=== PATIENT | male | born 1955 | race Caucasian/White ===

== ENCOUNTER 2016-10-02 04:19 | Inpatient (IN) | payer OTHER ==
[2016-10-02] VITALS (22 sets, daily range): BP systolic 133–233; BP diastolic 61–117; PULSE 88–107; RESP 11–30; TEMP 97.5–99.5; O2SAT 88–98
[~2016-10-02] VITALS: Ht 175.3 cm; Wt 104.9 kg
[~2016-10-02 04:19] MED LIST: Z.0.NO CURRENT MEDS
[2016-10-02] MEDS ORDERED: ASPI81CH CHEW (04:39)
[2016-10-02] MEDS ORDERED: HYDROmorphone HCL PF 1 MG/ML VIAL IV PUSH ONE ×3 (05:00→07:00)
[2016-10-02] MEDS ORDERED: ONDANSETRON HCL 4 MG/2 ML VIAL IV PUSH ONE (05:00)
[2016-10-02] MEDS ORDERED: SODIUM CHLORIDE 0.9% FLUSH 5 ML FLUSH IVF PRN ×2 (05:00→06:45)
[2016-10-02] MEDS: SODIUM CHLOR 0.9% 1000 ML INJ 1,000 ML IV SCH ×4 (05:02→20:19)
[2016-10-02 05:07] LABS: AUTOMATED NEUTROPHIL # 8.5 TH/MM3 (1.8-7.7); BASOPHIL # 0.4 TH/MM3 (0-0.2); BASOPHIL % 3.2 % (0.0-2.0); EOSINOPHIL # 0.1 TH/MM3 (0-0.4); EOSINOPHIL % 0.5 % (0.0-4.0); HEMATOCRIT 45.7 % (39.0-51.0); HEMO FLAGS DIFF FINAL; LYMPH % 12.9 % (9.0-44.0); LYMPHOCYTE # 1.4 TH/MM3 (1.0-4.8); MEAN CORPUSCULAR HEMOGLOBIN 27.2 PG (27.0-34.0); MEAN CORPUSCULAR HGB CONC 34.1 % (32.0-36.0); MONO % 5.9 % (0.0-8.0); NEUT % 77.5 % (16.0-70.0); PLATELET COUNT 242 TH/MM3 (150-450); RED BLOOD COUNT 5.71 MIL/MM3 (4.50-5.90); RED CELL DISTRIBUTION WIDTH 14.2 % (11.6-17.2); WHITE BLOOD COUNT 11.1 TH/MM3 (4.0-11.0)
[2016-10-02 05:19] LABS: CHLORIDE 99 MEQ/L (98-107); POTASSIUM 4.4 MEQ/L (3.5-5.1); SODIUM (NA) 133 MEQ/L (136-145)
[2016-10-02 05:23] LABS: ANION GAP 9 MEQ/L (5-15); APTT (PATIENT) 28.6 SEC (24.3-30.1); BICARBONATE 25.4 MEQ/L (21.0-32.0); BLOOD UREA NITROGEN 20 MG/DL (7-18); PROTHROMBIN TIME - PATIENT 10.6 SEC (9.8-11.6)
[2016-10-02 05:26] LABS: ALT (GPT) 20 U/L (12-78); AST (GOT) 12 U/L (15-37); GLOMERULAR FILTRATION RATE 32 ML/MIN (>89)
[2016-10-02 05:27] LABS: TOTAL BILIRUBIN ADULT 0.7 MG/DL (0.2-1.0)
[2016-10-02 05:28] LABS: ALKALINE PHOSPHATASE 60 U/L (45-117)
--- NOTE | 2016-10-02 05:39 | RADHPO ---
EXAM DATE/TIME: 10/02/2016 05:16 [facility] COMPARISON: No previous studies available for comparison. INDICATIONS : Shortness of breath. MEDICAL HISTORY : Arthritis. Carcinoma, bladder. SURGICAL HISTORY : Prostatectomy. Bilateral nephrostomy tubes ENCOUNTER: Initial ACUITY: 1 day PAIN SCORE: 9/10 LOCATION: Bilateral chest FINDINGS: A single view of the chest demonstrates the lungs to be symmetrically aerated without evidence of mas s, infiltrate or effusion. The cardiomediastinal contours are unremarkable. Osseous structures are intact. CONCLUSION: Normal examination. Colby Green MD on October 02, 2016 at 5:38 Board Certified Radiologist. This report was verified electronically.
--- NOTE | 2016-10-02 05:47 | PD ---
HPI Chief Complaint: Abdominal Pain Time Seen by Provider: 04:55 Travel History International Travel<30 days: No Contact w/Intl Traveler<30days: No Traveled to known affect area: No History of Present Illness HPI 61-year-old male presents to the emergency department by private transportation for evaluation of severe abdominal pain since late Monday night early Monday morning. Pain has been persistent and worsening. Patient reports now he is unable to lay down because of the pain being so severe. Patient denies any chest pain or shortness of breath. Patient has had no fever or chills. Pain has causing him to have associated nausea without vomiting. Patient has been able to urinate. Patient's last bowel movement was 11 AM on Monday morning. Patient's had poor oral intake. Patient denies hematemesis coffee-ground emesis melena hematochezia. Patient's past medical history significant for bladder wall malignancy he is status post radical cystoprostatectomy with ileal conduit formation in 2005. Patient is no longer undergoing any cancer-related treatment. Patient also has history of COPD ongoing tobaccoism hyperglycemia and hypertension. Patient rates abdominal pain 7-8/10 in intensity sitting upright and 10 over 10 in intensity with attempted to rest supine. PFSH Past Medical History Narrative Medical Bladder cancer and radical cystoprostatectomy and ileal conduit tobacco use alcohol use COPD; nursing notes reviewed Arthritis: Yes Asthma: No Blood Disorders: No Cancer: Yes (BLADDER) Cardiovascular Problems: No COPD: No Diminished Hearing: No Endocrine: No Genitourinary: Yes (BLADDER CANCER) Immune Disorder: No Kidney Stones: No Musculoskeletal: Yes Neurologic: No Psychiatric: No Reproductive: No Respiratory: Yes Renal Failure: No Sleep Apnea: No Past Surgical History Abdominal Surgery: No AICD: No Arteriovenous Shunt: No Cardiac Surgery: No Ear Surgery: No Endocrine Surgery: No Eye Surgery: No Genitourinary Surgery: Yes (BLADDER CAncer) Gynecologic Surgery: No Insulin Pump: No Joint Replacement: No Oral Surgery: No Pacemaker: No Thoracic Surgery: No Social History Alcohol Use: No Tobacco Use: Yes (1 1/2 PACKS PER DAY) Substance Use: No Allergies-Medications (Allergen,Severity, Reaction): Coded Allergies: Ativan (Verified Allergy, Severe, Confusion, 10/02/16) Reported Meds & Prescriptions Reported Meds & Active Scripts Active Reported Aspirin 81 Mg Chew 162 Mg CHEW DAILY PRN Review of Systems Except as stated in HPI: all other systems reviewed are Neg General / Constitutional: No: Fever, Chills Eyes: No: Visual changes HENT: No: Headaches Cardiovascular: No: Chest Pain or Discomfort Respiratory: No: Shortness of Breath Gastrointestinal: Positive: Nausea, Abdominal Pain, No: Vomiting, Diarrhea, Constipation, Loss of Appetite Genitourinary: No: Dysuria, Flank Pain Musculoskeletal: No: Myalgias, Arthralgias Skin: No Rash Neurologic: No: Weakness Psychiatric: Positive: Anxiety Endocrine: No: Heat Intolerance Hematologic/Lymphatic: No: Easy Bruising Physical Exam Narrative GENERAL: Well-developed well-nourished male in obvious distress without respiratory distress SKIN: Warm and dry. HEAD: Atraumatic. Normocephalic. EYES: Pupils equal and round. No scleral icterus. No injection or drainage. ENT: No nasal bleeding or discharge. Mucous membranes pink and moist. NECK: Trachea midline. No JVD. CARDIOVASCULAR: Regular rate and rhythm. RESPIRATORY: No accessory muscle use. Clear to auscultation. Breath sounds equal bilaterally. GASTROINTESTINAL: Abdomen soft, diffusely very tender to palpation LLQ>RLQ>[id number], distended. Hepatic and splenic margins not palpable due to abdominal anatomy and girth. No palpable pulsatile mass. MUSCULOSKELETAL: Extremities without clubbing, cyanosis, or edema. No obvious deformities. Radial and dorsalis pedis pulses 2++==. NEUROLOGICAL: Awake and alert. No obvious cranial nerve deficits. Motor grossly within normal limits. Five out of 5 muscle strength in the arms and legs. Normal speech. PSYCHIATRIC: Appropriate mood and affect; insight and judgment normal. Data Data Last Documented VS Vital Signs Date Time Temp Pulse Resp B/P Pulse Ox O2 Delivery O2 Flow Rate FiO2 10/02/16 06:41 97 18 178/94 95 Nasal Cannula 2 10/02/16 04:40 97.9 Orders Hydromorphone Pf Inj (Dilaudid Pf Inj) (10/02/16 05:00) Ondansetron Inj (Zofran Inj) (10/02/16 05:00) Sodium Chlor 0.9% 1000 Ml Inj (Ns 1000 M (10/02/16 05:00) Complete Blood Count With Diff (10/02/16 04:55) Comprehensive Metabolic Panel (10/02/16 04:55) Lipase (10/02/16 04:55) Lactic Acid (10/02/16 04:55) Prothrombin Time / Inr (Pt) (10/02/16 04:55) Act Partial Throm Time (Ptt) (10/02/16 04:55) Urinalysis - C+S If Indicated (10/02/16 04:55) Iv Access Insert/Monitor (10/02/16 04:55) Ecg Monitoring (10/02/16 04:55) Oximetry (10/02/16 04:55) Sodium Chloride 0.9% Flush (Ns Flush) (10/02/16 05:00) Electrocardiogram (10/02/16 04:55) Troponin I (10/02/16 04:55) Type And Screen (10/02/16 04:55) Chest, Single Ap (10/02/16 ) Ct Abd/Pel W/O Iv Contrast (10/02/16 ) Hydromorphone Pf Inj (Dilaudid Pf Inj) (10/02/16 06:00) Nitroglycerin 2% Oint (Nitroglycerin 2% (10/02/16 06:30) Admit Order (Ed Use Only) (10/02/16 ) ^ Saline Lock (10/02/16 06:43) Resp Oxygen Spencer C Titrat 1-4 L (10/02/16 ) ^ Notify Dr: Other (10/02/16 06:43) Sodium Chloride 0.9% Flush (Ns Flush) (10/02/16 09:00) Sodium Chloride 0.9% Flush (Ns Flush) (10/02/16 06:45) Piperacil-Tazo 4.5 Gm Premix (Zosyn 4.5 (10/02/16 07:00) Hydromorphone Pf Inj (Dilaudid Pf Inj) (10/02/16 07:00) Labs Laboratory Tests Test 10/02/16 04:50 White Blood Count 11.1 TH/MM3 Red Blood Count 5.71 MIL/MM3 Hemoglobin 15.6 GM/DL Hematocrit 45.7 % Mean Corpuscular Volume 80.0 FL Mean Corpuscular Hemoglobin 27.2 PG Mean Corpuscular Hemoglobin 34.1 % Concent Red Cell Distribution Width 14.2 % Platelet Count 242 TH/MM3 Mean Platelet Volume 8.9 FL Neutrophils (%) (Auto) 77.5 % Lymphocytes (%) (Auto) 12.9 % Monocytes (%) (Auto) 5.9 % Eosinophils (%) (Auto) 0.5 % Basophils (%) (Auto) 3.2 % Neutrophils # (Auto) 8.5 TH/MM3 Lymphocytes # (Auto) 1.4 TH/MM3 Monocytes # (Auto) 0.7 TH/MM3 Eosinophils # (Auto) 0.1 TH/MM3 Basophils # (Auto) 0.4 TH/MM3 CBC Comment DIFF FINAL Differential Comment Prothrombin Time 10.6 SEC Prothromb Time International 1.0 RATIO Ratio Activated Partial 28.6 SEC Thromboplast Time Sodium Level 133 MEQ/L Potassium Level 4.4 MEQ/L Chloride Level 99 MEQ/L Carbon Dioxide Level 25.4 MEQ/L Anion Gap 9 MEQ/L Blood Urea Nitrogen 20 MG/DL Creatinine 2.10 MG/DL Estimat Glomerular Filtration 32 ML/MIN Rate Random Glucose 135 MG/DL Lactic Acid Level 1.1 mmol/L Calcium Level 9.0 MG/DL Total Bilirubin 0.7 MG/DL Aspartate Amino Transf 12 U/L (AST/SGOT) Alanine Aminotransferase 20 U/L (ALT/SGPT) Alkaline Phosphatase 60 U/L Troponin I 0.02 NG/ML Total Protein 7.3 GM/DL Albumin 3.5 GM/DL Lipase 122 U/L MDM Medical Decision Making Medical Screen Exam Complete: Yes Emergency Medical Condition: Yes Medical Record Reviewed: Yes Interpretation(s) Chest x-ray: No subdiaphragmatic free air EKG sinus tachycardia rate [address] elevation or injury pattern change artifact is present at baseline CBC & BMP Diagram 10/02/16 04:50 Differential Diagnosis Abdominal pain, perforated viscus, bowel obstruction, ischemic colitis, abdominal aortic aneurysm, aortic dissection, diverticulitis, appendicitis, renal colic, UTI, sepsis Narrative Course Abdominal pain with previous abdominal surgery concerning for bowel obstruction bowel ischemia perforated viscus; chest x-ray reveals no evidence of subdiaphragmatic free air EKG is sinus tach rate 100 without acute injury pattern change; IV access obtained specimens collected and sent for resulting patient administered Dilaudid 1 mg IV and Zofran 4 mg IV. After pain medication pain has decreased from 7-8/10 in intensity to 4-5/10 in intensity patient is able to rest partially supine without increasing pain abdomen remains diffusely tender especially bilateral lower quadrants left greater than right. CT abdomen and pelvis ordered however in view of patient's renal insufficiency study will be done without oral or IV contrast. CT system with abdominal aortic aneurysm and mild paracolic gutter to moderate upper abdominal free fluid; case discussed with radiologist regarding Hounsfield units for fluid density per reading radiologist fluid appears to be consistent with simple fluid not consistent with hemorrhage fluid is low density no evidence for aneurysmal rupture retroperitoneum looks clear possible ascitic fluid no free air. Critical Care Narrative Aggregate critical care time was 40 minutes. Time to perform other separately billable procedures was not included in the critical care time. My time did not include minutes spent treating any other patients simultaneously or on activities that did not directly contribute to the patient's treatment. The services I provided to this patient were to treat and/or prevent clinically significant deterioration that could result in: Ruptured abdominal aortic aneurysm, ischemic bowel, hypovolemic shock, cardiogenic shock, I provided critical care services requiring my management, as noted below: Chart data review, documentation time, medication orders and management, vital sign assessments/reviewing monitor data, ordering and reviewing lab tests, ordering and interpreting/reviewing x-rays and diagnostic studies, care of the patient and discussion of the patient with the admitting physicians. HemaPrompt Point of Care Internal Pos. & Neg. Controls: Passed Fecal Specimen Occult Blood: Negative Sepsis Criteria SIRS Criteria (2 or more): Heart rate over 90 Physician Communication Physician Communication case discussed with Dr Tolentino; Discussed with Dr Ro; discussed with Dr Sandhu Diagnosis Primary Impression: Acute abdominal pain Additional Impressions: AAA (abdominal aortic aneurysm) HTN (hypertension) COPD (chronic obstructive pulmonary disease) Alcohol use Admitting Information Admitting Physician Requests: Admit Reyna Perdomo MD Oct 02, 2016 05:47
--- NOTE | 2016-10-02 06:09 | RADHPO ---
EXAM DATE/TIME: 10/02/2016 05:39 [facility] COMPARISON: No previous studies available for comparison. INDICATIONS : Diffuse abdominal pain with nausea. ORAL CONTRAST: No oral contrast ingested. RADIATION DOSE: 24.11 CTDIvol (mGy) MEDICAL HISTORY : Carcinoma, bladder. SURGICAL HISTORY : Prostatectomy. Neobladder. ENCOUNTER: Initial ACUITY: 1 day PAIN SCALE: 9/10 LOCATION: Abdomen. TECHNIQUE: Volumetric scanning of the abdomen and pelvis was performed. Using automated exposure control and ad justment of the mA and/or kV according to patient size, radiation dose was kept as low as reasonably achievable to obtain optimal diagnostic quality images. FINDINGS: There are 2 small cysts in the left lobe of the liver and a tiny cyst in the right lobe. There is mod erate free fluid in the upper abdomen. Spleen, pancreas, adrenal glands are unremarkable. Small exoph ytic cyst right lower pole kidney measuring 1.5 cm. Additional cortical cyst left kidney are suspecte d but incompletely evaluated without contrast. Left upper pole renal cyst measures up to 3.3 cm. Ther e is atherosclerotic calcification of the aorta and iliac vessels with dilatation of the infrarenal a bdominal aorta measuring 3.6 x 3.7 cm in transverse and AP dimension on axial image 42, and 4.9 x 4 c m in AP and transverse dimension on axial image 48. There is diastasis of the rectus abdominis muscul ature with anterior bulging of abdominal wall. There is a history of cystectomy with neobladder const ruction. No evidence for bowel obstruction.. Diverticulosis of the descending colon and transverse co melvi without evidence of diverticulitis. There is evidence of previous small bowel surgery of the dist al ileum. There is mild free fluid within the paracolic gutters bilaterally. Degenerative changes of the spine are noted. Lung bases are clear. CONCLUSION: 1. No definite evidence for bowel obstruction with postsurgical changes seen. 2. Aneurysmal dilatation of the abdominal aorta is noted up to 4.9 cm. 3. Bilateral renal cysts. 4. Moderate free fluid. 5. Diverticulosis without diverticulitis. Colby Green MD on October 02, 2016 at 6:04 Board Certified Radiologist. This report was verified electronically.
[2016-10-02] MEDS ORDERED: NITROGLYCERIN 2% OINT 1 GM PACKET TOPICAL ONE (06:30)
[2016-10-02] MEDS ORDERED: SODIUM CHLOR 0.9% 1000 ML INJ 1,000 ML IV SCH (06:42)
[2016-10-02] MEDS ORDERED: ONDANSETRON HCL 4 MG/2 ML VIAL IV PRN ×2 (06:45→10:30)
[2016-10-02] MEDS ORDERED: ACETAMINOPHEN 325 MG TAB PO PRN (06:45)
[2016-10-02] MEDS ORDERED: MISCELLANEOUS NURSING INFORMATION XX SCH ×2 (06:45→10:30)
[2016-10-02] MEDS ORDERED: CHLORHEXIDINE GLUCONATE 2 % 1 PACK (2 CLOTHS) TOP PRN ×2 (06:45→10:30)
[2016-10-02] MEDS ORDERED: MORPHINE SULFATE 4 MG/ML INJ IV PRN (06:45)
[2016-10-02] MEDS ORDERED: RESP: ALBUTEROL 2.5 MG/IPRATROPIUM 0.5 MG NEB (PRN) INH ×2 (06:45→10:30)
[2016-10-02] MEDS ORDERED: SODIUM CHLORIDE 0.9% FLUSH 5 ML FLUSH IV FLUSH PRN ×2 (06:45→10:30)
[2016-10-02] MEDS ORDERED: cefTRIAXone INJ 2,000 MG in SODIUM CHLORIDE 0.9% INJ 100 ML IV SCH (07:00)
[2016-10-02] MEDS ORDERED: PIPERACIL-TAZO 4.5 GM PREMIX 100 ML IV ONE (07:00)
[2016-10-02 08:04] LABS: BLOOD, URINE TRACE (NEG); GLUCOSE,URINE NEG (NEG); KETONE, URINE NEG (NEG); NITRITE,URINE NEG (NEG)
[2016-10-02 08:08] LABS: MAGNESIUM 1.4 MG/DL (1.5-2.5)
[2016-10-02 08:09] LABS: METHOD OF COLLECTION CATH; URINE COLOR STRAW (YELLW/STRAW)
[2016-10-02] MEDS: niCARdipine INJ 25 MG in SODIUM CHLOR 0.9% 250 ML INJ 250 ML IV SCH ×2 (08:17→10:40)
[2016-10-02 08:24] LABS: COMMENT (UR) CATH-CULT NOT IND; CULTURE IF INDICATED CATH CULTURE NOT IND; RBC, URINE 0-3 /hpf (0-3)
[2016-10-02 08:26] LABS: COMMENT2 (UR) OVAL FAT BODIES
[2016-10-02] MEDS: ARTIFICIAL TEARS OPTH SOLN 15 ML BTL EACH EYE SCH ×3 (08:32→18:00)
[2016-10-02] MEDS ORDERED: SODIUM CHLORIDE 0.9% FLUSH 5 ML FLUSH IV FLUSH SCH (09:00)
[2016-10-02] MEDS ORDERED: SODIUM CHLORIDE 0.9% FLUSH 5 ML FLUSH IVF SCH (09:00)
[2016-10-02] MEDS ORDERED: PANTOPRAZOLE SODIUM 40 MG VIAL IV SCH (09:00)
[2016-10-02] MEDS ORDERED: POTASSIUM PHOSPHATE MONOBASIC 500 MG TAB PO PRN (10:30)
[2016-10-02] MEDS ORDERED: MAGNESIUM SULFATE INJ 2 GM in SODIUM CHLORIDE 0.9% INJ 96 ML IV PRN (10:30)
[2016-10-02] MEDS ORDERED: POTASSIUM PHOSPHATE MONOBASIC 500 MG TAB PO/TUBE PRN (10:30)
[2016-10-02] MEDS ORDERED: POTASSIUM PHOSPHATE INJ 30 MMOL in SODIUM CHLOR 0.9% 250 ML INJ 250 ML IV PRN (10:30)
[2016-10-02] MEDS ORDERED: POTASSIUM CL 40 MEQ/30 ML LIQ UDC PO/TUBE PRN ×2 (10:30)
[2016-10-02] MEDS ORDERED: MAGNESIUM OXIDE 400 MG TAB PO PRN (10:30)
[2016-10-02] MEDS ORDERED: HYDROmorphone HCL PF 1 MG/ML VIAL IV ONE (10:30)
[2016-10-02] MEDS ORDERED: DEXTROSE 50% IN WATER 50 ML VIAL(D50) IV PUSH PRN (10:30)
[2016-10-02] MEDS ORDERED: POTASSIUM CHLOR 40 MEQ PREMIX 100 ML IV PRN ×2 (10:30)
[2016-10-02] MEDS ORDERED: POTASSIUM CHLOR 20 MEQ PREMIX 100 ML IV PRN ×2 (10:30)
[2016-10-02] MEDS ORDERED: MAGNESIUM SULFATE INJ 4 GM in SODIUM CHLORIDE 0.9% INJ 92 ML IV PRN (10:30)
[2016-10-02] MEDS ORDERED: SODIUM PHOSPHATE INJ 30 MMOL in SODIUM CHLOR 0.9% 250 ML INJ 240 ML IV PRN (10:30)
--- NOTE | 2016-10-02 11:24 | HHI.HP ---
HPI Service Critical Care Medicine Primary Care Physician No Primary Care Physician Admission Diagnosis acute abdominal pain; AAA; hypertension; copd Diagnosis: Chief Complaint: abdominal pain Travel History International Travel<30 Days: No Contact w/Intl Traveler <30 Da: No Traveled to Known Affected Are: No History of Present Illness This is a 61yM with h/o etoh abuse, copd, smoking who presents bc of 3 day history of worsening severe abdominal pain. describes it as vague lower abdominal pain, cannot locate one area. worse with eating. associated diarrhea which is nonbloody. no constipation, n/v. denies fevers or chills. never had this before. at [place] emergency department, he was found to have 5cm AAA on abdominal CT. also with leukocytosis of 11, cr 2.1. Also was found to be severely hypertensive in the ER requiring nicardipine infusion to control bp. critical care medicine is consulted to evaluate and manage his severe abdominal pain and hypertensive urgency. Review of Systems ROS Limitations: Poor Historian Constitutional: DENIES: Fever, Chills, Dizziness Respiratory: DENIES: Cough, Sputum production, Shortness of breath Cardiovascular: DENIES: Chest pain, Syncope, Dyspnea on Exertion, Lower Extremity Edema Gastrointestinal: COMPLAINS OF: Abdominal pain, Diarrhea, DENIES: Black stools , Bloody stools, Constipation, Nausea, Vomiting Neurologic: DENIES: Headache Past Family Social History Allergies: Coded Allergies: Ativan (Verified Allergy, Severe, Confusion, 10/02/16) Past Medical History Bladder cancer s/p resection COPD Arthritis Past Surgical History Radical cystoprostatectomy with ileal conduit. Reported Medications Aspirin 81 Mg Chew daily Active Ordered Medications See MAR Family History reviewed and found to be noncontributory to his acute illness. Social History significant etoh use: drinks a case of beer a day. recently has decided to stop drinking water and drink only beer. 1.5ppd smoker. denies other drugs. Physical Exam Vital Signs Vital Signs Date Time Temp Pulse Resp B/P Pulse Ox O2 Delivery O2 Flow Rate FiO2 10/02/16 09:35 91 Nasal Cannula 4.00 10/02/16 09:35 98.4 88 16 144/71 91 10/02/16 09:35 88 10/02/16 09:30 90 18 146/73 96 2 10/02/16 08:19 90 20 156/81 96 Nasal Cannula 2 10/02/16 07:58 18 10/02/16 07:45 94 Nasal Cannula 2.00 10/02/16 07:44 98 20 164/82 98 Nasal Cannula 2 10/02/16 07:03 97.5 90 20 183/80 95 Nasal Cannula 2 10/02/16 06:41 97 18 178/94 95 Nasal Cannula 2 10/02/16 06:27 97 188/100 95 Nasal Cannula 2 10/02/16 06:06 96 18 195/97 95 Nasal Cannula 2 10/02/16 05:58 96 191/100 93 Nasal Cannula 2 10/02/16 05:51 99 18 199/99 95 Nasal Cannula 2 10/02/16 05:05 Nasal Cannula 2 10/02/16 04:58 101 233/117 10/02/16 04:42 207/115 10/02/16 04:40 97.9 106 22 207/115 98 10/02/16 04:29 97.9 106 22 198/113 98 Physical Exam GENERAL: Middle-aged male, lying in bed, moderate distress due to pain HEENT: Pupils equal, round, reactive, conjugate. Mucous membranes are dry. NECK: Large jeronimo which limits evaluation of JVD. Trachea is midline. CHEST: Equal chest rise. Bilateral expiratory wheezes. CARDIOVASCULAR: Normal rate, regular rhythm. On nicardipine infusion. Systolic blood pressure 147 on my evaluation. No appreciable murmurs. ABDOMEN: Obese, soft, nondistended. Moderately tender to palpation over bilateral lower quadrants. No guarding or rebound. MUSCULOSKELETAL: No peripheral edema. pulses equal bilaterally and 2+ radial and dp. NEUROLOGICAL: RASS 0. Follows commands 4. No gross focal motor or sensory deficits Laboratory Laboratory Tests Test 10/02/16 10/02/16 10/02/16 04:50 07:43 07:50 White Blood Count 11.1 Red Blood Count 5.71 Hemoglobin 15.6 Hematocrit 45.7 Mean Corpuscular Volume 80.0 Mean Corpuscular Hemoglobin 27.2 Mean Corpuscular Hemoglobin 34.1 Concent Red Cell Distribution Width 14.2 Platelet Count 242 Mean Platelet Volume 8.9 Neutrophils (%) (Auto) 77.5 Lymphocytes (%) (Auto) 12.9 Monocytes (%) (Auto) 5.9 Eosinophils (%) (Auto) 0.5 Basophils (%) (Auto) 3.2 Neutrophils # (Auto) 8.5 Lymphocytes # (Auto) 1.4 Monocytes # (Auto) 0.7 Eosinophils # (Auto) 0.1 Basophils # (Auto) 0.4 CBC Comment DIFF FINAL Differential Comment Prothrombin Time 10.6 Prothromb Time International 1.0 Ratio Activated Partial 28.6 Thromboplast Time Sodium Level 133 Potassium Level 4.4 Chloride Level 99 Carbon Dioxide Level 25.4 Anion Gap 9 Blood Urea Nitrogen 20 Creatinine 2.10 Estimat Glomerular Filtration 32 Rate Random Glucose 135 Lactic Acid Level 1.1 Calcium Level 9.0 Total Bilirubin 0.7 Aspartate Amino Transf 12 (AST/SGOT) Alanine Aminotransferase 20 (ALT/SGPT) Alkaline Phosphatase 60 Troponin I 0.02 0.02 Total Protein 7.3 Albumin 3.5 Lipase 122 Blood Type O POSITIVE Antibody Screen NEGATIVE Magnesium Level 1.4 Total Creatine Kinase 117 Amylase Level 53 Urine Collection Type CATH Urine Color STRAW Urine Turbidity MOD Urine pH 6.0 Urine Specific Orange 1.010 Urine Protein 100 Urine Glucose (UA) NEG Urine Ketones NEG Urine Occult Blood TRACE Urine Nitrite NEG Urine Bilirubin NEG Urine Leukocyte Esterase NEG Urine RBC 0-3 Urine WBC 3-5 Urine Amorphous Sediment FEW Microscopic Urinalysis Comment CATH-CULT NOT IND Urine Collection Time 0750 Date/Time Procedure Status Source Growth 10/02/16 07:15 Aerobic Blood Culture Received Blood Peripheral Pending 10/02/16 07:15 Anaerobic Blood Culture Received Blood Peripheral Pending Result Diagram: 10/02/16 0450 10/02/16 0450 Imaging Last 24 hours Impressions Chest X-Ray 10/02/16 0000 Signed Impressions: Service Date/Time: Sunday, October 02, 2016 05:16 - CONCLUSION: Normal examination. Colby Green MD Abdomen/Pelvis CT 10/02/16 0000 Signed Impressions: Service Date/Time: Sunday, October 02, 2016 05:39 - CONCLUSION: 1. No definite evidence for bowel obstruction with postsurgical changes seen. 2. Aneurysmal dilatation of the abdominal aorta is noted up to 4.9 cm. 3. Bilateral renal cysts. 4. Moderate free fluid. 5. Diverticulosis without diverticulitis. Colby Green MD Assessment and Plan Assessment and Plan Assessment: 61yM h/o etoh abuse, COPD who presents with 3 days of worsening, severe abdominal pain and CT abd/pelvis demonstrating 5cm AAA. The patient has a normal lactate and no evidence of fluid collection in the retroperitoneal space. However, dissection, mesenteric ischemia, or leak could all be the cause of his pain. From a nonvascular standpoint, diverticulitis or colitis could also be a source. I have spoken with Dr. Bernard with vascular surgery, and he agrees that the work-up of this patient given the severity of his symptoms includes a CT aortogram to evaluate the abdominal vasculature. The patient has a history of CRI and his Cr is 2.1 today. I have spoken with the patient and discussed the risks, benefits, and alternatives of receiving IV contrast for this, including the risk of acute kidney injury requiring renal replacement therapy. He was initially hesitant to receive contrast, but after my counseling that if he did have an acute mesenteric ischemia, dissection, or aneurysm leak, this could be fixable and life-threatening, he agreed to receive IV contrast. For now, his hypertensive urgency and high concern for intra-abdominal pathology remain life-threatening, and he requires ICU level care for close monitoring and tight blood pressure control. Plan: 1. Severe Abdominal pain -- serial lactates -- CT Aortogram -- dilaudid 1mg iv q3h for pain -- strict NPO 2. Hypertensive Urgency -- Cardene for goal sbp < 150. If he does have aortic pathology, we will tighten these parameters. -- may require arterial line placement. will re-eval. 3. Acute on Chronic Renal failure -- iv hydration with NS @ 120cc/hr. -- daily BMP -- Patel with strict I/Os 4. Etoh Abuse -- Thiamine, MVI -- watch for withdraw 5. COPD -- wean o2 by NC for goal spo2 > 88% -- nebs q6h and q2h prn -- I.S. to bedside. dvt prophy: SCDs. holding pharmacologic DVT prophylaxis until aortic pathology is ruled out. gi prophylaxis: protonix iv. dispo: remain in the ICU. he is critically ill. This patient remains critically ill with one or more organ systems which are or may become a threat to life. I have spent in excess of 48 minutes discontinuously in the care and management of this patient. This time is exclusive of procedures, and includes, but is not limited to, evaluation of the patient, review of the medical record, discussions with family, consultants, nursing staff, or respiratory therapy, and documentation in the medical record. Code Status Full Code Discussed Condition With Dr. Bernard Radiologist front end web designer bedside Alek Childress MD Oct 02, 2016 11:24
[2016-10-02] MEDS: INSULIN NovoLIN REGULAR SUPPLEMENTAL SCALE SQ SCH ×2 (12:00→18:00)
[2016-10-02] MEDS ORDERED: MULTIVITAMIN INJ 10 ML, THIAMINE INJ 100 MG, FOLIC ACID INJ 1 MG in SODIUM CHLOR 0.45% ... IV ONE (12:00)
[2016-10-02 12:15] LABS: BICARBONATE 24.4 MEQ/L (21.0-32.0)
--- NOTE | 2016-10-02 13:26 | EKG ---
Date Performed: 10/02/2016 Time Performed: 05:30:18 PTAGE: 61 years EKG: Sinus tachycardia. Lateral ST-T changes are nonspecific Borderline ECG PREVIOUS TRACING : 10/13/2005 11.34 Compared to previous tracing, nonspecific ST/T changes are now present. DOCTOR: Elvis Blood Interpretating Date/Time 10/02/2016 13:25:58
[2016-10-02] MEDS ORDERED: IODIXANOL 320 MG/ML 10 ML VIAL (for RAD SPEC) IV ONE (15:12)
--- NOTE | 2016-10-02 15:39 | RADRPT ---
EXAM DATE/TIME: 10/02/2016 14:57 [facility] COMPARISON: No previous studies available for comparison. INDICATIONS : Evaluate for dissection. IV CONTRAST: 100 cc Visipaque (iodixanol) IV ; Cumulative dose for multiple exams. RADIATION DOSE: 12.86 CTDIvol (mGy) ; Combined studies MEDICAL HISTORY : Cardiovascular disease. Hypertension. Carcinoma, bladder. SURGICAL HISTORY : Prostatectomy. ENCOUNTER: Initial ACUITY: 1 day PAIN SCALE: 0/10 LOCATION: chest abdomen/pelvis TECHNIQUE: Volumetric scanning was performed using a multi-row detector CT scanner. The data was post processed with a variety of visualization algorithms including full volume maximum intensity projection, multi -planar sliding thin slab reformation, curved planar reformation, and surface rendering techniques. Using automated exposure control and adjustment of the mA and/or kV according to patient size, radiat ion dose was kept as low as reasonably achievable to obtain optimal diagnostic quality images. FINDINGS: LUNGS: There is bibasilar consolidation. No concerning pulmonary nodule is visualized. No pleural fluid is present. MEDIASTINUM: No abnormally enlarged lymph nodes by CT criteria. No axillary or hilar abnormalities are identified. ABDOMEN: The liver and spleen are free of focal defects. Multiple liver lesions again seen. The gallbladder an d pancreas demonstrate no abnormality. The adrenal glands are normal. Multiple low-density renal les ions. There has been interval pneumoperitoneum. Air is seen anteriorly. There are some ventral hernia s containing fat. There is diverticulosis of the transverse colon. There are postsurgical changes inv olving the distal ileum. Pneumoperitoneum. There are some mildly inflamed small bowel loops left mida bdomen. PELVIS: No evidence of free fluid or pelvic mass. No abnormally enlarged inguinal or retroperitoneal lymph no humberto are present. The bladder is unremarkable. THORACIC AORTA: The thoracic aortic root is normal with normal branching of the great vessels. There is no evidence of aneurysm or dissection. ABDOMINAL AORTA: The diffuse atherosclerotic changes. Aneurysmal dilatation measures up to 4.9 cm.. PELVIC VESSELS: The internal iliac and external iliac vessels are patent without aneurysm or stenosis. CONCLUSION: 1. Interval development of pneumoperitoneum, new finding from CT abdomen pelvis performed earlier in the day. This may be related to perforation of small bowel or possible perforated diverticulum from t he transverse colon. I suspect if likely coming from small bowel as there are some mildly inflamed sm all bowel loops in the region. 2. Abdominal aortic aneurysm measuring up to 4.9 cm. The mesenteric vessels are patent. 3. Small abdominal ascites. 4. Multiple low-density hepatic and renal lesions, indeterminate but likely benign. 5. Ascites. 6. Bibasilar consolidation. Kasi Alford MD on October 02, 2016 at 15:28 Board Certified Radiologist. This report was verified electronically.
[2016-10-02] MEDS: RESP: ALBUTEROL 2.5 MG/IPRATROPIUM 0.5 MG NEB (SCH) INH ×2 (16:32→21:13)
[2016-10-02] MEDS ORDERED: CARVEDILOL 6.25 MG TAB PO SCH (16:49)
[2016-10-02] MEDS: HYDROmorphone HCL PF 1 MG/ML VIAL IV PRN (16:59)
[2016-10-02] MEDS ORDERED: LABETALOL HCL 100 MG/20 ML VIAL IV PUSH PRN (17:00)
[2016-10-02] MEDS: PIPERACIL-TAZO 2.25 GM PREMIX 50 ML IV SCH (17:00)
[2016-10-02] MEDS: CARVEDILOL 6.25 MG TAB PO SCH (18:00)
--- NOTE | 2016-10-02 18:47 | MB ---
cc: GENE MORALES DATE OF CONSULTATION: 10/02/2016. REASON FOR CONSULTATION: Possible free air in abdomen. HISTORY OF PRESENT ILLNESS: This is 61-year-old gentleman who had a 3-day history of just a diffuse abdominal pain. He cannot really locate where it is originally when he came into the hospital. When I examined him, he seemed to be complaining more of right upper quadrant pain than anything else. He has been the intensive care unit and it was originally thought he might have an abdominal aortic aneurysm that would need a surgical repair. Surgery was consulted after a CTA revealed some free air that was originally not called on the previous CT scan done earlier in the day. Dr. Dowd has consulted me for surgical opinion of his abdominal exam and radiologic findings. PAST MEDICAL HISTORY: He is not very verbose about his medical history. Most of the history is obtained from the records but he is able to fill me in on some. 1. He has COPD. 2. He has a known abdominal aortic aneurysm. 3. He had bladder cancer requiring a cystectomy with an ileal conduit done by Dr. Adorno years ago and apparently was complicated with wound dehiscence that was repaired and he has an incisional hernia that he has known about for years. 4. Hypertension. 5. COPD. ALLERGIES: 1. ATIVAN. OUTPATIENT MEDICATIONS: 1. Aspirin. INPATIENT MEDICATIONS: He is on the standard intensive care unit medicines now. PHYSICAL EXAMINATION: GENERAL: On physical exam, he is a full-bearded gentleman pleasant, alert, and appears fairly comfortable in the intensive care unit. NECK: The neck is supple. CHEST: Clear. HEART: Regular rate. ABDOMEN: Obese and soft with an incisional hernia. He has no rebound or guarding specifically over around the hernia where they called the suspected free air he does has tenderness of the right upper quadrant over the gallbladder. He has surgical scars. EXTREMITIES: Moves all extremities well, no clubbing, cyanosis or edema. : He has a Patel catheter in place draining a fair amount of clear yellow urine. LABORATORY DATA: He has a white count of 11, hemoglobin of 15 and hematocrit of 45. Chemistry showed a creatinine of 1.8, which is down from 2.1 earlier today. His magnesium is 1.4. His lactic acid was 1.1. Amylase and lipase are normal. RADIOLOGIC IMAGING: Reviewed the CTA and the abdominal CT and there is questionable free air around and in this hernia. On my interpretation, he has some thickening of his gallbladder wall. ASSESSMENT: This is a 61-year-old gentleman who came into the hospital with abdominal discomfort. He has a nonoperative 4.9 to 5.0 cm abdominal aortic aneurysm. He has findings of right upper quadrant pain and has this questionable free air in the abdomen that he apparently is asymptomatic from. At this point, I reviewed the case with Dr. Dowd. At this time, will just sit tight with him clinically. He does not appear to have acute abdomen. In fact, he is better than he was when he first came in. I will watch him during this hospitalization. I have taken the liberty of ordering an ultrasound to look at his gallbladder as well. Gene Morales MD JDB/CONOR /5:23 PM /6:37 PM
--- NOTE | 2016-10-02 19:15 | MB ---
cc: JAYCEE ADHIKARI MD DATE OF CONSULTATION: 10/02/2016. REASON FOR CONSULTATION: Abdominal aortic aneurysm, abdominal pain. CRITICAL CARE TIME: Forty (40) minutes. HISTORY OF PRESENT ILLNESS: This 61-year-old male presented yesterday to the [facility] Emergency Room with worsening abdominal pain. The patient states he had pain like this for about five days, had diarrhea until yesterday which now stopped. He denies nausea and vomiting. The patient underwent CT scan which revealed an abdominal aortic aneurysm measuring about 5 cm in diameter and I was called to see the patient in consult considering the pain and the abdominal aortic aneurysm which was known from before. PAST MEDICAL HISTORY: 1. The patient is a very poor historian; however, he had apparently ten years ago a bladder resection for tumor with a Jose A Vesica. 2. COPD. 3. Arthritis. 4. Denies diabetes mellitus. 5. He also has hypertension. SOCIAL HISTORY: The patient smokes about 1-1/2 to 2 packs a day and drinks about a case of beer a day. PHYSICAL EXAMINATION: GENERAL: The physical examination reveals a 61-year-old male appearing much older than his actual age. HEAD, EYES, EARS, NOSE, THROAT: Normocephalic. No trauma to the head. Pupils equal and reactive. Extraocular muscles intact. NECK: The neck is supple. Bilateral carotid pulses and bilateral carotid bruits about 2/6. CHEST: Bilateral breath sounds decreased over both lung styles consistent with a moderate degree of COPD. HEART: Regular rhythm. The patient is hypertensive. Slightly tachycardic. ABDOMEN: Abdomen soft with hyperactive bowel sounds. On palpation, tender in the epigastrium but without rebound or guarding. The abdominal wall is thinned out. The patient has multiple scars over the anterior abdominal wall from previous surgery. No masses are noted. EXTREMITIES: The patient has actually palpable femoral pulses. He is modestly overweight and then distal pulses only by Doppler. The popliteal pulses are very weak and dorsalis pedis and posterior tibial are present but again are very weak in both legs. NEUROLOGIC: Neurologically grossly the patient is intact. I reviewed laboratory and diagnostic procedures on this gentleman. At this point, there are several issues to consider: The patient has an abdominal aortic aneurysm which is asymptomatic. The aneurysm reaches above the renal arteries and can be considered a juxtarenal aneurysm and therefore is not amenable to any endovascular stenting. In addition, the patient has significant disease in the iliac arteries, mainly to the left, more left than right, and then bilateral superficial femoral artery occlusions with reconstitutions distally and poor runoff to both feet. So as far as vascular surgery is concerned, the patient right now is not symptomatic distally. The aneurysm is 5 cm and not symptomatic and therefore, I would be hard pressed to do anything about this. Other than that, the patient has a small amount of air on the repeat CT scan for the CTA with runoff and I have discussed this with Dr. Morales, who has been consulted and I agree with his approach to this problem right now. It is somewhat unclear where the air came from and what is perforated, if anything anymore. Right now, there is no vascular procedure to be done. The aneurysm is not symptomatic and should be left alone at this point. I thank you very much for the referral. Jaycee PRADO/CONOR /5:40 PM /7:00 PM
[2016-10-02] MEDS: SODIUM CHLORIDE 0.9% FLUSH 5 ML FLUSH IV FLUSH SCH (20:19)
--- NOTE | 2016-10-02 21:36 | RADRPT ---
EXAM DATE/TIME: 10/02/2016 19:36 [facility] COMPARISON: No previous studies available for comparison. INDICATIONS : Right upper quadrant pain. MEDICAL HISTORY : Chronic obstructive pulmonary disease. Hypertension. Arthritis. Bladder cancer. C.diff. SURGICAL HISTORY : Bilateral nephrostomy tubes. Radical prostatectomy with ileal conduit. ENCOUNTER: Initial ACUITY: 1 day PAIN SCORE: 2/10 LOCATION: Right upper quadrant MEASUREMENTS: LIVER: 17.0 cm length COMMON DUCT: 5 mm RIGHT KIDNEY: 13.2 x 5.6 x 6.0 cm FINDINGS: LIVER: Normal echotexture without focal lesion or ductal dilatation. Several simple cysts including 2 in the left lobe measuring 14 x 14 x 10 mm and 9 x 9 x 6 mm. COMMON DUCT: No intraluminal mass or stone visualized. GALLBLADDER: Contains no stones, demonstrates wall thickening without pericholecystic fluid. There is benign adeno myomatosis. PANCREAS: The visualized portions are within normal limits. RIGHT KIDNEY: No evidence of hydronephrosis, stone, or mass. Minimally complex cyst in the mid kidney measures 19 x 17 x 10 mm. Simple cyst lower pole measures 23 x 22 x 18 mm. CONCLUSION: 1. Hepatic and right renal cyst. 2. No evidence for cholelithiasis. 3. Adenomyomatosis the gallbladder. Kasi Alford MD on October 02, 2016 at 21:32 Board Certified Radiologist. This report was verified electronically.
[2016-10-03] VITALS (12 sets, daily range): BP systolic 134–175; BP diastolic 62–94; PULSE 68–97; RESP 12–29; TEMP 98–99.1; O2SAT 94–98
[2016-10-03] MEDS: HYDROmorphone HCL PF 1 MG/ML VIAL IV PRN (01:46)
[2016-10-03] MEDS: THIAMINE INJ 100 MG in SODIUM CHLORIDE 0.9% INJ 100 ML IV SCH (02:15)
[2016-10-03] MEDS: niCARdipine INJ 25 MG in SODIUM CHLOR 0.9% 250 ML INJ 250 ML IV SCH (02:27)
[2016-10-03] MEDS: RESP: ALBUTEROL 2.5 MG/IPRATROPIUM 0.5 MG NEB (SCH) INH ×4 (04:00→20:38)
[2016-10-03] MEDS: CHLORHEXIDINE GLUCONATE 2 % 1 PACK (2 CLOTHS) TOP SCH (04:00)
[2016-10-03] MEDS ORDERED: CHLORHEXIDINE GLUCONATE 2 % 1 PACK (2 CLOTHS) TOP SCH (04:00)
[2016-10-03] MEDS: PIPERACIL-TAZO 2.25 GM PREMIX 50 ML IV SCH ×5 (04:18→22:09)
[2016-10-03] MEDS: SODIUM CHLOR 0.9% 1000 ML INJ 1,000 ML IV SCH ×3 (04:19→20:51)
[2016-10-03 04:32] LABS: AUTOMATED NEUTROPHIL # 6.6 TH/MM3 (1.8-7.7); BASOPHIL # 0.1 TH/MM3 (0-0.2); BASOPHIL % 0.6 % (0.0-2.0); EOSINOPHIL # 0.1 TH/MM3 (0-0.4); EOSINOPHIL % 0.7 % (0.0-4.0); HEMATOCRIT 39.3 % (39.0-51.0); HEMO FLAGS DIFF FINAL; LYMPH % 13.2 % (9.0-44.0); LYMPHOCYTE # 1.1 TH/MM3 (1.0-4.8); MEAN CELL VOLUME 81.7 FL (80.0-100.0); MEAN CORPUSCULAR HEMOGLOBIN 26.5 PG (27.0-34.0); MEAN CORPUSCULAR HGB CONC 32.4 % (32.0-36.0); MONO % 7.1 % (0.0-8.0); NEUT % 78.4 % (16.0-70.0); PLATELET COUNT 175 TH/MM3 (150-450); RED BLOOD COUNT 4.81 MIL/MM3 (4.50-5.90); WHITE BLOOD COUNT 8.5 TH/MM3 (4.0-11.0)
[2016-10-03 04:47] LABS: PROTHROMBIN TIME - PATIENT 10.8 SEC (9.8-11.6)
[2016-10-03 04:58] LABS: ALKALINE PHOSPHATASE 49 U/L (45-117); ALT (GPT) 14 U/L (12-78); ANION GAP 7 MEQ/L (5-15); AST (GOT) 9 U/L (15-37); BICARBONATE 26.3 MEQ/L (21.0-32.0); BLOOD UREA NITROGEN 13 MG/DL (7-18); CHLORIDE 109 MEQ/L (98-107); GLOMERULAR FILTRATION RATE 92 ML/MIN (>89); POTASSIUM 3.9 MEQ/L (3.5-5.1); SODIUM (NA) 142 MEQ/L (136-145); TOTAL BILIRUBIN ADULT 0.6 MG/DL (0.2-1.0)
[2016-10-03] MEDS: CARVEDILOL 6.25 MG TAB PO SCH ×2 (05:37→17:41)
[2016-10-03] MEDS: INSULIN NovoLIN REGULAR SUPPLEMENTAL SCALE SQ SCH ×4 (06:00→17:41)
[2016-10-03] MEDS: NICOTINE 21 MG/24 HR PATCH TD SCH ×2 (06:17→09:00)
[2016-10-03] MEDS ORDERED: PANTOPRAZOLE SODIUM 40 MG VIAL IV SCH (09:00)
[2016-10-03] MEDS: ARTIFICIAL TEARS OPTH SOLN 15 ML BTL EACH EYE SCH ×3 (09:00→17:26)
[2016-10-03] MEDS: SODIUM CHLORIDE 0.9% FLUSH 5 ML FLUSH IV FLUSH SCH ×2 (09:00→20:50)
--- NOTE | 2016-10-03 09:05 | RADRPT ---
EXAM DATE/TIME: 10/02/2016 14:57 [facility] COMPARISON: CTA THORACIC ABDOMINAL AORTA W 3D RECON, October 02, 2016, 14:57. INDICATIONS : Evaluate for dissection. IV CONTRAST: 100 cc Visipaque (iodixanol) IV ; Cumulative dose for multiple exams. RADIATION DOSE: 12.86 CTDIvol (mGy) ; Combined studies MEDICAL HISTORY : Cardiovascular disease. Hypertension. Carcinoma, bladder. SURGICAL HISTORY : None. Prostatectomy. ENCOUNTER: Initial ACUITY: 1 day PAIN SCALE: 0/10 LOCATION: lower extremity TECHNIQUE: Volumetric scanning was performed using a multi-row detector CT scanner. The data was post processed with a variety of visualization algorithms including full volume maximum intensity projection, multi -planar sliding thin slab reformation, curved planar reformation, and surface rendering techniques. Using automated exposure control and adjustment of the mA and/or kV according to patient size, radiat ion dose was kept as low as reasonably achievable to obtain optimal diagnostic quality images. FINDINGS: Thoracic aorta: The aortic root is mildly dilated at 3.9 cm. The proximal arch is mildly dilated at 3.3 cm. The aorta returns to a normal caliber at the level of the distal arch. The origins of the great vessels are wi levi patent. The descending thoracic aorta is normal in caliber throughout its course. It measures ap proximately 2.7 cm in its distal segment. There is no evidence of thoracic aortic dissection. Abdominal aorta: The celiac and SMA origins are widely patent. There are single renal arteries bilaterally. The renal arteries are widely patent. The infrarenal aorta is aneurysmal with a maximum dimension of 4.7 cm. Th e DANIELLA is patent. Pelvis: The proximal right common iliac is mildly aneurysmal at 1.7 cm. There is high-grade stenosis in its d istal segment. The left common iliac is heavily diseased with high-grade stenosis throughout its cour se. The external iliac circulation is moderately diseased bilaterally in its proximal segment. The di stal external iliac circulation is adequate in caliber bilaterally. Right leg: The right common femoral demonstrates a densely calcified atherosclerotic plaque. There is high-grade stenosis in the right common femoral. The profunda femoral is patent. The superficial femoral is occ luded at its origin. There is eventual reconstitution of the popliteal at the level of the knee. Dist ally, all 3 trifurcation vessels are patent down into the foot. Left leg: The left common femoral is diseased but adequate in caliber. The profunda femoral is patent. The supe rficial femoral occludes at its origin. There is reconstitution at the level of the mid thigh. The po pliteal is diseased but adequate in caliber. Distally, all 3 trifurcation vessels are patent down to the foot. CT source data: The visualized pulmonary parenchyma demonstrates bilateral atelectasis. The heart is normal in size. There is atherosclerotic plaque in the coronary arteries. Imaging through the upper abdomen demonstra adebayo a small amount of ascites layering around the liver and the spleen. There is a 1.4 cm low-attenua tion lesion within the liver. This is nonspecific in appearance. No retroperitoneal adenopathy is pre sent. The loops of small and large bowel are unremarkable. Note is made of a Paetl catheter within th e bladder. CONCLUSION: 1. There is no evidence of dissection of the thoracic or abdominal aorta. Measurements for the thorac ic aorta are given above. 2. 4.7 cm infrarenal abdominal aortic aneurysm. 3. Extensive vascular disease with high-grade stenosis involving both common iliac arteries. 4. Complete occlusion of the right superficial femoral with eventual reconstitution of the right popl iteal and three-vessel runoff below the knee. 5. Complete occlusion of the proximal left superficial femoral with reconstitution of its mid segment . Distally, all 3 trifurcation vessels are patent. Bart Rodriguez MD on October 03, 2016 at 8:14 Board Certified Radiologist. This report was verified electronically.
--- NOTE | 2016-10-03 09:27 | HHI.PR ---
Subjective Remarks resting comfortably with no distress. abdominal pain has much improved. no nausea or vomiting. d/w the RN and no acute issues over night. Objective Vitals Vital Signs Date Time Temp Pulse Resp B/P Pulse Ox O2 Delivery O2 Flow Rate FiO2 10/03/16 08:25 97 Nasal Cannula 4.00 10/03/16 04:00 99.1 78 12 134/62 94 10/03/16 02:16 12 10/03/16 00:00 98.5 86 14 166/74 94 10/02/16 23:00 101 10/02/16 21:14 93 Nasal Cannula 3.00 10/02/16 20:00 99.5 101 30 157/74 93 10/02/16 19:00 92 Nasal Cannula 4.00 10/02/16 18:23 98.0 95 11 133/61 88 10/02/16 18:00 107 10/02/16 12:00 98.0 89 12 138/63 90 10/02/16 11:16 93 Nasal Cannula 6.00 10/02/16 09:35 91 Nasal Cannula 4.00 10/02/16 09:35 98.4 88 16 144/71 91 10/02/16 09:35 88 10/02/16 09:30 90 18 146/73 96 2 I/O 10/02/16 10/02/16 10/02/16 10/03/16 10/03/16 10/03/16 07:00 15:00 23:00 07:00 15:00 23:00 Intake Total 1010 ml 1600 ml Output Total 1800 ml 1850 ml Balance -790 ml -250 ml Intake IV Total 1010 ml 1600 ml Output Urine Total 1800 ml 1850 ml Result Diagram: 10/03/16 0413 10/03/16 0413 Imaging Last Impressions Gall Bladder Ultrasound 10/02/16 0000 Signed Impressions: Service Date/Time: Sunday, October 02, 2016 19:36 - CONCLUSION: 1. Hepatic and right renal cyst. 2. No evidence for cholelithiasis. 3. Adenomyomatosis the gallbladder. Kasi Alford MD Chest X-Ray 10/02/16 0000 Signed Impressions: Service Date/Time: Sunday, October 02, 2016 05:16 - CONCLUSION: Normal examination. Colby Green MD Aorta w/Runoff CTA 2/26/17 0000 Draft Impressions: Service Date/Time: Sunday, October 02, 2016 14:57 - CONCLUSION: 1. There is no evidence of dissection of the thoracic or abdominal aorta. Measurements for the thoracic aorta are given above. 2. 4.7 cm infrarenal abdominal aortic aneurysm. 3. Extensive vascular disease with high-grade stenosis involving both common iliac arteries. 4. Complete occlusion of the right superficial femoral with eventual reconstitution of the right popliteal and three-vessel runoff below the knee. 5. Complete occlusion of the proximal left superficial femoral with reconstitution of its mid segment. Distally, all 3 trifurcation vessels are patent. Bart Rodriguez MD Aorta CTA 10/02/16 Signed Impressions: Service Date/Time: Sunday, October 02, 2016 14:57 - CONCLUSION: 1. Interval development of pneumoperitoneum, new finding from CT abdomen pelvis performed earlier in the day. This may be related to perforation of small bowel or possible perforated diverticulum from the transverse colon. I suspect if likely coming from small bowel as there are some mildly inflamed small bowel loops in the region. 2. Abdominal aortic aneurysm measuring up to 4.9 cm. The mesenteric vessels are patent. 3. Small abdominal ascites. 4. Multiple low-density hepatic and renal lesions, indeterminate but likely benign. 5. Ascites. 6. Bibasilar consolidation. Kasi Alford MD Abdomen/Pelvis CT 10/02/16 Signed Impressions: Service Date/Time: Sunday, October 02, 2016 05:39 - CONCLUSION: 1. No definite evidence for bowel obstruction with postsurgical changes seen. 2. Aneurysmal dilatation of the abdominal aorta is noted up to 4.9 cm. 3. Bilateral renal cysts. 4. Moderate free fluid. 5. Diverticulosis without diverticulitis. Colby Green MD Objective Remarks GENERAL: This is a well-nourished, well-developed patient, in no apparent distress. CARDIOVASCULAR: Regular rate and regular rhythm without murmurs, gallops, or rubs. RESPIRATORY: Clear to auscultation. Breath sounds equal bilaterally. No wheezes , rales, or rhonchi. GASTROINTESTINAL: Abdomen soft, non-tender, nondistended. Normal, active bowel sounds MUSCULOSKELETAL: Extremities without clubbing, cyanosis, or edema. NEURO: Alert & Oriented x4 to person, place, time, situation. Moves all ext x4 Procedures none Medications and IVs Current Medications Hydromorphone HCl (Dilaudid Pf Inj) 1 mg ONCE ONCE IV PUSH Last administered on 10/02/16 05:03; Start 10/02/16 at 05:00; Stop 10/02/16 at 05:01; Status DC Ondansetron HCl 4 mg 4 mg ONCE ONCE IV PUSH Last administered on 10/02/16 05: 03; Start 10/02/16 at 05:00; Stop 10/02/16 at 05:01; Status DC Sodium Chloride (NS 1000 ml Inj) 1,000 ml @ 100 mls/hr Q10H IV Last administered on 10/02/16 05:02; Start 10/02/16 at 05:00; Stop 10/02/16 at 10:33 ; Status DC IV Flush (NS Flush) 2 ml UNSCH PRN IVF FLUSH AFTER USING IV ACCESS Last administered on 10/02/16 05:56; Start 10/02/16 at 05:00; Stop 10/02/16 at 07:03 ; Status DC Hydromorphone HCl (Dilaudid Pf Inj) 1 mg ONCE ONCE IV PUSH Last administered on 10/02/16 05:56; Start 10/02/16 at 06:00; Stop 10/02/16 at 06:01; Status DC Nitroglycerin (Nitroglycerin 2% Oint) 2 inch ONCE ONCE TOPICAL Last administered on 10/02/16 06:21; Start 10/02/16 at 06:30; Stop 10/02/16 at 06:31 ; Status DC IV Flush (NS Flush) 2 ml BID IVF Last administered on 10/02/16 08:31; Start at 09:00; Stop 10/02/16 at 10:41; Status DC IV Flush 2 ml 2 ml UNSCH PRN IVF FLUSH AFTER USING IV ACCESS Last administered on 10/02/16 07:16; Start 10/02/16 at 06:45; Stop 10/02/16 at 10:41; Status DC Piperacillin Sod/ Tazobactam Sod (Zosyn 4.5 Gm Premix) 100 ml @ 200 mls/hr ONCE ONCE IV Last administered on 10/02/16 07:16; Start 10/02/16 at 07:00; Stop 10/02/16 at 07:29; Status DC Hydromorphone HCl 1 mg 1 mg ONCE ONCE IV PUSH Last administered on 10/02/16 07:15; Start 10/02/16 at 07:00; Stop 10/02/16 at 07:01; Status DC Nicardipine HCl 25 mg/Sodium Chloride 260 ml @ 0 mls/hr TITRATE IV Last administered on 10/03/16 02:27; Start 10/02/16 at 06:45; Stop 10/03/16 at 06:09 ; Status DC Sodium Chloride (NS 1000 ml Inj) 1,000 ml @ 84 mls/hr [id number] IV Last administered on 10/02/16 07:16; Start 10/02/16 at 06:42; Stop 10/02/16 at 10:33 ; Status DC IV Flush (NS Flush) 2 ml UNSCH PRN IV FLUSH FLUSH AFTER USING IV ACCESS; Start 10/02/16 at 06:45; Stop 10/02/16 at 07:03; Status DC IV Flush (NS Flush) 2 ml BID IV FLUSH ; Start 10/02/16 at 09:00; Stop 10/02/16 at 09:00; Status DC Acetaminophen (Tylenol) 650 mg Q6H PRN PO PAIN 1-10 AND/OR FEVER >101F; Start 10/02/16 at 06:45 Acetaminophen/ Hydrocodone Bitart ([place] 5-325 Mg) 1 tab Q4H PRN PO PAIN SCALE 1 TO 5; Start 10/02/16 at 06:45 Morphine Sulfate (Morphine Inj) 2 mg Q2H PRN IV PAIN SCALE 6 TO 10; Start 10/02 at 06:45; Stop 10/02/16 at 10:33; Status DC Pantoprazole Sodium (Protonix Inj) 40 mg DAILY IV Last administered on 08:31; Start 10/02/16 at 09:00; Stop 10/02/16 at 10:42; Status DC Artificial Tears (Tears Naturale Opth Soln) 1 drop TID EACH EYE Last administered on 10/02/16 10:01; Start 10/02/16 at 09:00 Ondansetron HCl (Zofran Inj) 4 mg Q6H PRN IV NAUSEA OR VOMITING; Start at 06:45; Stop 10/02/16 at 10:42; Status DC Albuterol/ Ipratropium (Duoneb Neb) 1 ampule Q2HR NEB PRN INH WHEEZING; Start 10/02/16 at 06:45; Stop 10/02/16 at 10:40; Status DC Miscellaneous Information 1 Q361D XX ; Start 10/02/16 at 06:45; Stop 10/02/16 at 10:41; Status DC Chlorhexidine Gluconate (Chlorhexidine 2% Cloth) 3 pack Taper DAILY@04 TOP ; Start 10/03/16 at 04:00; Stop 10/03/16 at 04:00; Status DC Chlorhexidine Gluconate 3 pack 3 pack UNSCH PRN TOP HYGIENIC CARE; Start at 06:45; Stop 10/02/16 at 10:41; Status DC Ceftriaxone Sodium/Sodium Chloride (Rocephin Inj/NS Inj) 100 ml @ 200 mls/hr Q24H IV Last administered on 10/02/16 07:43; Start 10/02/16 at 07:00; Stop at 16:52; Status DC Hydromorphone HCl (Dilaudid Pf Inj) 1 mg NOW ONCE IV Last administered on 10/02 10:39; Start 10/02/16 at 10:30; Stop 10/02/16 at 10:31; Status DC Magnesium Oxide 800 mg 800 mg UNSCH PRN PO For Magnesium 1.2 - 1.6 mg/dL; Start 10/02/16 at 10:30 Magnesium Sulfate 4 gm/Sodium Chloride 100 ml @ 50 mls/hr UNSCH PRN IV For Magnesium 0.9 - 1.1 mg/dL; Start 10/02/16 at 10:30 Magnesium Sulfate 2 gm/Sodium Chloride 100 ml @ 50 mls/hr UNSCH PRN IV For Magnesium 1.2 - 1.6 mg/dL Last administered on 10/02/16 12:42; Start 10/02/16 at 10:30 Potassium Chloride 100 ml @ 50 mls/hr Q2H PRN IV For Potassium 2.8 - 3.2 mEq/L ; Start 10/02/16 at 10:30 Potassium Chloride 100 ml @ 50 mls/hr Q2H PRN IV For Potassium 3.3 - 3.5 mEq/L ; Start 10/02/16 at 10:30 Potassium Chloride 100 ml @ 50 mls/hr Q2H PRN IV For Potassium 2.8 - 3.2 mEq/L ; Start 10/02/16 at 10:30 Potassium Chloride (KCl 40 Meq Premix Inj) 100 ml @ 25 mls/hr UNSCH PRN IV For Potassium 3.3 - 3.5 mEq/L; Start 10/02/16 at 10:30 Potassium Chloride (KCl 40 Meq/30 ml Liq) 40 meq UNSCH PRN PO/TUBE For Potassium 3.3 - 3.5 mEq/L; Start 10/02/16 at 10:30 Potassium Chloride (KCl 40 Meq/30 ml Liq) 40 meq UNSCH PRN PO/TUBE SEE LABEL COMMENTS; Start 10/02/16 at 10:30 Potassium Phosphate (K-Phos) 2,000 mg Q4H PRN PO For Phosphorus < 2.5 mg/dL; Start 10/02/16 at 10:30 Potassium Phosphate 2000 mg 2,000 mg UNSCH PRN PO/TUBE SEE LABEL COMMENTS; Start 10/02/16 at 10:30 Potassium Phosphate 30 mmol/ Sodium Chloride 260 ml @ 42 mls/hr UNSCH PRN IV SEE LABEL COMMENTS; Start 10/02/16 at 10:30 Sodium Phosphate/ Sodium Chloride (Sodium Phosphate Inj/NS 250 ml Inj) 250 ml @ 42 mls/hr UNSCH PRN IV For Phosphorus < 2.5 mg/dL; Start 10/02/16 at 10:30 Dextrose (D50w (Vial) Inj) 25 ml UNSCH PRN IV PUSH HYPOGLYCEMIA-SEE COMMENTS; Start 10/02/16 at 10:30 Insulin Human Regular (NovoLIN R SUPPLEMENTAL SCALE) 1 Q6HR SQ ; Start 10/02/16 at 12:00 Albuterol/ Ipratropium (Duoneb Neb) 1 ampule Q6HR NEB INH Last administered on 10/02/16 21:13; Start 10/02/16 at 16:00 Albuterol/ Ipratropium 1 ampule 1 ampule Q2HR NEB PRN INH WHEEZING; Start 10/02 at 10:30 Sodium Chloride (NS 1000 ml Inj) 1,000 ml @ 120 mls/hr Q8H20M IV Last administered on 10/03/16 04:19; Start 10/02/16 at 10:25 IV Flush (NS Flush) 2 ml UNSCH PRN IV FLUSH FLUSH AFTER USING IV ACCESS; Start 10/02/16 at 10:30 IV Flush (NS Flush) 2 ml BID IV FLUSH Last administered on 10/02/16 20:19; Start 10/02/16 at 21:00 Hydromorphone HCl (Dilaudid Pf Inj) 1 mg Q4H PRN IV PAIN SCALE 6 TO 10 Last administered on 10/03/16 01:46; Start 10/02/16 at 10:30 Pantoprazole Sodium (Protonix Inj) 40 mg DAILY IV ; Start 10/03/16 at 09:00 Ondansetron HCl (Zofran Inj) 4 mg Q6H PRN IV NAUSEA OR VOMITING; Start at 10:30 Miscellaneous Information 1 Q361D XX ; Start 10/02/16 at 10:30 Chlorhexidine Gluconate (Chlorhexidine 2% Cloth) 3 pack Taper DAILY@04 TOP Last administered on 10/03/16 04:00; Start 10/03/16 at 04:00; Stop 09/29/17 at 03:59 Chlorhexidine Gluconate 3 pack 3 pack UNSCH PRN TOP HYGIENIC CARE; Start at 10:30 Thiamine HCl/ Sodium Chloride (Thiamine Inj/NS Inj) 101 ml @ 101 mls/hr Q24H IV Last administered on 10/03/16 02:15; Start 10/03/16 at 02:00; Stop at 02:59 Thiamine HCl 100 mg 100 mg DAILY PO ; Start 10/06/16 at 09:00 Multivitamins/ Thiamine HCl/ Folic Acid/Sodium Chloride (Mvi-12 Inj/ Thiamine Inj/ Folvite Inj/1/2 NS 500 ml Inj) 511.2 ml @ 125 mls/hr ONCE ONCE IV Last administered on 10/02/16 12:42; Start 10/02/16 at 12:00; Stop 10/02/16 at 16:05 ; Status DC Multivitamins (Theragran) 1 tab DAILY PO ; Start 10/03/16 at 09:00 Iodixanol 100 ml 100 ml STK-MED ONCE IV Last administered on 10/02/16 15:12; Start 10/02/16 at 15:12; Stop 10/02/16 at 15:13; Status DC Piperacillin Sod/ Tazobactam Sod (Zosyn 2.25 Gm Premix) 50 ml @ 200 mls/hr Q6H IV Last administered on 10/03/16 04:18; Start 10/02/16 at 17:00 Nicotine (Habitrol 21 Mg Patch.24 Hr) 1 patch DAILY TD Last administered on 06:17; Start 10/02/16 at 17:00 Amlodipine Besylate (Norvasc) 10 mg DAILY PO Last administered on 10/02/16 17: 25; Start 10/02/16 at 16:49 Carvedilol (Coreg) 6.25 mg Q12HR PO ; Start 10/02/16 at 16:49; Stop 10/02/16 at 16:55; Status DC Labetalol HCl (Trandate Inj) 20 mg Q1H PRN IV PUSH sbp > 160; Start 10/02/16 at 17:00 Hydralazine HCl (Apresoline Inj) 10 mg Q30M PRN IV PUSH sbp > 160; Start at 17:00 Carvedilol (Coreg) 6.25 mg Q12H PO Last administered on 10/03/16 05:37; Start 10/02/16 at 18:00; Stop 10/03/16 at 06:10; Status DC Carvedilol (Coreg) 12.5 mg Q12H PO ; Start 10/03/16 at 18:00 A/P Assessment and Plan A/p 1. Severe Abdominal pain- has much improved CT of the abdomen with pneumoperitoneum. general surgery evaluation appreciated and recommended conservative treatment. on clear liquid diet for now. continue pain control. 2. Hypertensive Urgency- improved. -- off the Cardene drip. - started on norvasc and coreg. -will monitor and adjust the regimen as needed. 3. Acute on Chronic Renal failure- improved -will monitor renal function. 4. Etoh Abuse -- Thiamine, MVI -- watch for withdraw 5. COPD -- wean o2 by NC for goal spo2 > 88% -- nebs q6h and q2h prn -- I.S. to bedside. 6- AAA/ PVD vascular surgery evaluation appreciated and recommended conservative treatment. dvt prophy: SCDs. gi prophylaxis: protonix iv. for transfer to floor. d/w the RN. Hollis Carty MD Oct 03, 2016 09:26
[2016-10-03] MEDS: MULTIVITAMIN TAB PO SCH (10:27)
--- NOTE | 2016-10-03 10:54 | HHI.PR ---
Subjective Subjective Notes DAILY PROGRESS NOTE FOR SURGICAL ATTENDING, DR. MOIZ MORALES Sitting up in bed Reports no abdominal pain Wants to get out of bed today Wants to go home and take care of the animals Objective Vitals/I&O Vital Signs Date Time Temp Pulse Resp B/P Pulse Ox O2 Delivery O2 Flow Rate FiO2 10/03/16 08:25 97 Nasal Cannula 4.00 10/03/16 04:00 99.1 78 12 134/62 Labs Laboratory Tests Test 10/02/16 10/03/16 10/03/16 11:21 01:15 04:13 Sodium Level 138 142 Potassium Level 4.0 3.9 Chloride Level 104 109 Carbon Dioxide Level 24.4 26.3 Anion Gap 10 7 Blood Urea Nitrogen 21 13 Creatinine 1.84 0.85 Estimat Glomerular Filtration 38 92 Rate Random Glucose 113 115 Calcium Level 8.6 8.2 Phosphorus Level 4.5 2.9 Troponin I 0.03 C-Reactive Protein 4.80 Lactic Acid Level 0.5 0.5 White Blood Count 8.5 Red Blood Count 4.81 Hemoglobin 12.7 Hematocrit 39.3 Mean Corpuscular Volume 81.7 Mean Corpuscular Hemoglobin 26.5 Mean Corpuscular Hemoglobin 32.4 Concent Red Cell Distribution Width 15.0 Platelet Count 175 Mean Platelet Volume 8.5 Neutrophils (%) (Auto) 78.4 Lymphocytes (%) (Auto) 13.2 Monocytes (%) (Auto) 7.1 Eosinophils (%) (Auto) 0.7 Basophils (%) (Auto) 0.6 Neutrophils # (Auto) 6.6 Lymphocytes # (Auto) 1.1 Monocytes # (Auto) 0.6 Eosinophils # (Auto) 0.1 Basophils # (Auto) 0.1 CBC Comment DIFF FINAL Differential Comment Prothrombin Time 10.8 Prothromb Time International 1.0 Ratio Activated Partial 31.0 Thromboplast Time Magnesium Level 2.0 Total Bilirubin 0.6 Aspartate Amino Transf 9 (AST/SGOT) Alanine Aminotransferase 14 (ALT/SGPT) Alkaline Phosphatase 49 Total Protein 5.9 Albumin 2.8 Date/Time Procedure Status Source Growth 10/02/16 07:15 Aerobic Blood Culture Received Blood Peripheral Pending 10/02/16 07:15 Anaerobic Blood Culture Received Blood Peripheral Pending Cardiovascular: Regular Lungs: Clear Abdomen: Non-distended, Non-tender Extremities: No edema A/P Problem List: (1) AAA (abdominal aortic aneurysm) (2) History of bladder cancer (3) Acute abdominal pain Assessment and Plan 61 year old male with abdominal pain and free air visualized on CTA -Abdominal exam benign -Start diet -US gallbladder reviewed -Non op AAA ---management per Dr. Salima Kaiser to transfer out of ICU from GS standpoint Change Protonix to by mouth JENA Patel Order for out of bed Attending Statement NOTE FOR SURGICAL ATTENDING, DR. MOIZ MORALES I agree with above assessment and plan. Patient seen and examined Discussed with Dr. Dowd Patient has no pain in his abdomen He wants to go home He wants to get up and move around Increase activities and diet Okay from general surgery standpoint for discharge after he has a meal. The exam, history, and the medical decision-making described in the above note were completed with the assistance of the mid-level provider. I reviewed and agree with the findings presented. I attest that I had a [id number] encounter with the patient on the same day, and personally performed and documented my assessment and findings in the medical record. The following services were provided during this hospital visit: Chart data review, vital sign assessments/reviewing monitor data Review of consultations notes if present. Medication orders/review and/or management Ordering and/or reviewing lab tests Ordering and/or interpreting/reviewing x-rays and/or diagnostic studies Care of the patient and discussion of the patient with the care team Documentation time To help prompt me to consider important information that might be impacting today's encounter and assessment, information from prior notes written by myself or my colleagues may have been "brought forward/copy and pasted" into today's note. Shelbie Carbajal Oct 03, 2016 10:54 Moiz Morales MD Oct 03, 2016 10:58
[2016-10-03] MEDS ORDERED: guaiFENesin SOLUTION 200 MG/10 ML CUP PO PRN (17:15)
[2016-10-03] MEDS: ACETAMINOPHEN/HYDROcodone 325 MG/5 MG TAB PO PRN (21:23)
[2016-10-04] VITALS (9 sets, daily range): BP systolic 142–183; BP diastolic 72–104; PULSE 75–96; RESP 16–22; TEMP 96–98; O2SAT 93–97
[2016-10-04] MEDS: THIAMINE INJ 100 MG in SODIUM CHLORIDE 0.9% INJ 100 ML IV SCH (02:12)
[2016-10-04] MEDS: RESP: ALBUTEROL 2.5 MG/IPRATROPIUM 0.5 MG NEB (SCH) INH ×4 (04:00→21:44)
[2016-10-04] MEDS: CHLORHEXIDINE GLUCONATE 2 % 1 PACK (2 CLOTHS) TOP SCH (04:04)
[2016-10-04] MEDS: CARVEDILOL 6.25 MG TAB PO SCH ×2 (05:13→18:14)
[2016-10-04] MEDS: ACETAMINOPHEN/HYDROcodone 325 MG/5 MG TAB PO PRN ×3 (05:13→15:14)
[2016-10-04] MEDS: PIPERACIL-TAZO 2.25 GM PREMIX 50 ML IV SCH ×2 (05:14→10:26)
[2016-10-04] MEDS: SODIUM CHLOR 0.9% 1000 ML INJ 1,000 ML IV SCH ×3 (05:18→20:45)
[2016-10-04 07:16] LABS: HEMATOCRIT 38.5 % (39.0-51.0); MEAN CELL VOLUME 81.8 FL (80.0-100.0); MEAN CORPUSCULAR HEMOGLOBIN 26.6 PG (27.0-34.0); MEAN CORPUSCULAR HGB CONC 32.6 % (32.0-36.0); PLATELET COUNT 155 TH/MM3 (150-450); RED BLOOD COUNT 4.71 MIL/MM3 (4.50-5.90); RED CELL DISTRIBUTION WIDTH 14.8 % (11.6-17.2); REVIEW FLAG FINAL; WHITE BLOOD COUNT 5.7 TH/MM3 (4.0-11.0)
[2016-10-04 07:40] LABS: BICARBONATE 27.1 MEQ/L (21.0-32.0); POTASSIUM 3.6 MEQ/L (3.5-5.1)
[2016-10-04] MEDS: ARTIFICIAL TEARS OPTH SOLN 15 ML BTL EACH EYE SCH ×3 (09:00→12:17)
[2016-10-04] MEDS: PANTOPRAZOLE SOD 20 MG DELAYED RELEASE TAB PO SCH (10:20)
[2016-10-04] MEDS: NICOTINE 21 MG/24 HR PATCH TD SCH (10:20)
[2016-10-04] MEDS: MULTIVITAMIN TAB PO SCH (10:20)
[2016-10-04] MEDS: SODIUM CHLORIDE 0.9% FLUSH 5 ML FLUSH IV FLUSH SCH ×2 (10:21→21:00)
--- NOTE | 2016-10-04 11:26 | HHI.PR ---
Subjective Remarks resting comfortably with no distress. denies abdominal pain. had BM. no nausea or vomiting. Objective Vitals Vital Signs Date Time Temp Pulse Resp B/P Pulse Ox O2 Delivery O2 Flow Rate FiO2 10/04/16 10:39 96 10/04/16 08:00 98.0 77 18 181/101 94 10/04/16 05:45 97.4 89 17 152/95 95 10/04/16 00:35 96.5 75 16 165/85 96 10/03/16 22:23 16 10/03/16 22:00 69 10/03/16 20:40 96 3.00 10/03/16 20:00 98.1 78 29 175/94 94 10/03/16 20:00 69 10/03/16 19:00 97 Nasal Cannula 4.00 10/03/16 18:00 80 10/03/16 16:00 97 10/03/16 16:00 98.8 97 22 168/74 98 10/03/16 14:00 73 10/03/16 12:00 98.8 75 20 162/79 97 10/03/16 12:00 75 I/O 10/03/16 10/03/16 10/03/16 10/04/16 10/04/16 10/04/16 07:00 15:00 23:00 07:00 15:00 23:00 Intake Total 1075 ml 1667 ml 1448 ml 886 ml Output Total 1100 ml 900 ml 700 ml 200 ml Balance -25 ml 767 ml 748 ml 686 ml Intake Oral 660 ml 480 ml 240 ml IV Total 1075 ml 1007 ml 968 ml 646 ml Output Urine Total 1100 ml 900 ml 700 ml 200 ml # Voids 1 # Bowel Movements 1 0 Result Diagram: 10/04/16 0602 10/04/16 0602 Imaging Last Impressions Gall Bladder Ultrasound 10/02/16 0000 Signed Impressions: Service Date/Time: Sunday, October 02, 2016 19:36 - CONCLUSION: 1. Hepatic and right renal cyst. 2. No evidence for cholelithiasis. 3. Adenomyomatosis the gallbladder. Kasi Alford MD Chest X-Ray 10/02/16 0000 Signed Impressions: Service Date/Time: Sunday, October 02, 2016 05:16 - CONCLUSION: Normal examination. Colby Green MD Aorta w/Runoff CTA 10/02/16 Signed Impressions: Service Date/Time: Sunday, October 02, 2016 14:57 - CONCLUSION: 1. There is no evidence of dissection of the thoracic or abdominal aorta. Measurements for the thoracic aorta are given above. 2. 4.7 cm infrarenal abdominal aortic aneurysm. 3. Extensive vascular disease with high-grade stenosis involving both common iliac arteries. 4. Complete occlusion of the right superficial femoral with eventual reconstitution of the right popliteal and three-vessel runoff below the knee. 5. Complete occlusion of the proximal left superficial femoral with reconstitution of its mid segment. Distally, all 3 trifurcation vessels are patent. Bart Rodriguez MD Aorta CTA 10/02/16 Signed Impressions: Service Date/Time: Sunday, October 02, 2016 14:57 - CONCLUSION: 1. Interval development of pneumoperitoneum, new finding from CT abdomen pelvis performed earlier in the day. This may be related to perforation of small bowel or possible perforated diverticulum from the transverse colon. I suspect if likely coming from small bowel as there are some mildly inflamed small bowel loops in the region. 2. Abdominal aortic aneurysm measuring up to 4.9 cm. The mesenteric vessels are patent. 3. Small abdominal ascites. 4. Multiple low-density hepatic and renal lesions, indeterminate but likely benign. 5. Ascites. 6. Bibasilar consolidation. Kasi Aflord MD Abdomen/Pelvis CT 10/02/16 Signed Impressions: Service Date/Time: Sunday, October 02, 2016 05:39 - CONCLUSION: 1. No definite evidence for bowel obstruction with postsurgical changes seen. 2. Aneurysmal dilatation of the abdominal aorta is noted up to 4.9 cm. 3. Bilateral renal cysts. 4. Moderate free fluid. 5. Diverticulosis without diverticulitis. Colby Green MD Objective Remarks GENERAL: This is a well-nourished, well-developed patient, in no apparent distress. CARDIOVASCULAR: Regular rate and regular rhythm without murmurs, gallops, or rubs. RESPIRATORY: Clear to auscultation. Breath sounds equal bilaterally. No wheezes , rales, or rhonchi. GASTROINTESTINAL: Abdomen soft, non-tender, nondistended. Normal, active bowel sounds MUSCULOSKELETAL: Extremities without clubbing, cyanosis, or edema. NEURO: Alert & Oriented x4 to person, place, time, situation. Moves all ext x4 Procedures none Medications and IVs Current Medications Hydromorphone HCl (Dilaudid Pf Inj) 1 mg ONCE ONCE IV PUSH Last administered on 10/02/16 05:03; Start 10/02/16 at 05:00; Stop 10/02/16 at 05:01; Status DC Ondansetron HCl 4 mg 4 mg ONCE ONCE IV PUSH Last administered on 10/02/16 05: 03; Start 10/02/16 at 05:00; Stop 10/02/16 at 05:01; Status DC Sodium Chloride (NS 1000 ml Inj) 1,000 ml @ 100 mls/hr Q10H IV Last administered on 10/02/16 05:02; Start 10/02/16 at 05:00; Stop 10/02/16 at 10:33 ; Status DC IV Flush (NS Flush) 2 ml UNSCH PRN IVF FLUSH AFTER USING IV ACCESS Last administered on 10/02/16 05:56; Start 10/02/16 at 05:00; Stop 10/02/16 at 07:03 ; Status DC Hydromorphone HCl (Dilaudid Pf Inj) 1 mg ONCE ONCE IV PUSH Last administered on 10/02/16 05:56; Start 10/02/16 at 06:00; Stop 10/02/16 at 06:01; Status DC Nitroglycerin (Nitroglycerin 2% Oint) 2 inch ONCE ONCE TOPICAL Last administered on 10/02/16 06:21; Start 10/02/16 at 06:30; Stop 10/02/16 at 06:31 ; Status DC IV Flush (NS Flush) 2 ml BID IVF Last administered on 10/02/16 08:31; Start at 09:00; Stop 10/02/16 at 10:41; Status DC IV Flush 2 ml 2 ml UNSCH PRN IVF FLUSH AFTER USING IV ACCESS Last administered on 10/02/16 07:16; Start 10/02/16 at 06:45; Stop 10/02/16 at 10:41; Status DC Piperacillin Sod/ Tazobactam Sod (Zosyn 4.5 Gm Premix) 100 ml @ 200 mls/hr ONCE ONCE IV Last administered on 10/02/16 07:16; Start 10/02/16 at 07:00; Stop 10/02/16 at 07:29; Status DC Hydromorphone HCl 1 mg 1 mg ONCE ONCE IV PUSH Last administered on 10/02/16 07:15; Start 10/02/16 at 07:00; Stop 10/02/16 at 07:01; Status DC Nicardipine HCl 25 mg/Sodium Chloride 260 ml @ 0 mls/hr TITRATE IV Last administered on 10/03/16 02:27; Start 10/02/16 at 06:45; Stop 10/03/16 at 06:09 ; Status DC Sodium Chloride (NS 1000 ml Inj) 1,000 ml @ 84 mls/hr [id number] IV Last administered on 10/02/16 07:16; Start 10/02/16 at 06:42; Stop 10/02/16 at 10:33 ; Status DC IV Flush (NS Flush) 2 ml UNSCH PRN IV FLUSH FLUSH AFTER USING IV ACCESS; Start 10/02/16 at 06:45; Stop 10/02/16 at 07:03; Status DC IV Flush (NS Flush) 2 ml BID IV FLUSH ; Start 10/02/16 at 09:00; Stop 10/02/16 at 09:00; Status DC Acetaminophen (Tylenol) 650 mg Q6H PRN PO PAIN 1-10 AND/OR FEVER >101F; Start 10/02/16 at 06:45 Acetaminophen/ Hydrocodone Bitart ([place] 5-325 Mg) 1 tab Q4H PRN PO PAIN SCALE 1 TO 5 Last administered on 10/04/16 10:21; Start 10/02/16 at 06:45 Morphine Sulfate (Morphine Inj) 2 mg Q2H PRN IV PAIN SCALE 6 TO 10; Start 10/02 at 06:45; Stop 10/02/16 at 10:33; Status DC Pantoprazole Sodium (Protonix Inj) 40 mg DAILY IV Last administered on 08:31; Start 10/02/16 at 09:00; Stop 10/02/16 at 10:42; Status DC Artificial Tears (Tears Naturale Opth Soln) 1 drop TID EACH EYE Last administered on 10/02/16 10:01; Start 10/02/16 at 09:00 Ondansetron HCl (Zofran Inj) 4 mg Q6H PRN IV NAUSEA OR VOMITING; Start at 06:45; Stop 10/02/16 at 10:42; Status DC Albuterol/ Ipratropium (Duoneb Neb) 1 ampule Q2HR NEB PRN INH WHEEZING; Start 10/02/16 at 06:45; Stop 10/02/16 at 10:40; Status DC Miscellaneous Information 1 Q361D XX ; Start 10/02/16 at 06:45; Stop 10/02/16 at 10:41; Status DC Chlorhexidine Gluconate (Chlorhexidine 2% Cloth) 3 pack Taper DAILY@04 TOP ; Start 10/03/16 at 04:00; Stop 10/03/16 at 04:00; Status DC Chlorhexidine Gluconate 3 pack 3 pack UNSCH PRN TOP HYGIENIC CARE; Start at 06:45; Stop 10/02/16 at 10:41; Status DC Ceftriaxone Sodium/Sodium Chloride (Rocephin Inj/NS Inj) 100 ml @ 200 mls/hr Q24H IV Last administered on 10/02/16 07:43; Start 10/02/16 at 07:00; Stop at 16:52; Status DC Hydromorphone HCl (Dilaudid Pf Inj) 1 mg NOW ONCE IV Last administered on 10/02 10:39; Start 10/02/16 at 10:30; Stop 10/02/16 at 10:31; Status DC Magnesium Oxide 800 mg 800 mg UNSCH PRN PO For Magnesium 1.2 - 1.6 mg/dL; Start 10/02/16 at 10:30; Stop 10/04/16 at 07:50; Status DC Magnesium Sulfate 4 gm/Sodium Chloride 100 ml @ 50 mls/hr UNSCH PRN IV For Magnesium 0.9 - 1.1 mg/dL; Start 10/02/16 at 10:30; Stop 10/04/16 at 07:50; Status DC Magnesium Sulfate 2 gm/Sodium Chloride 100 ml @ 50 mls/hr UNSCH PRN IV For Magnesium 1.2 - 1.6 mg/dL Last administered on 10/02/16 12:42; Start 10/02/16 at 10:30; Stop 10/04/16 at 07:50; Status DC Potassium Chloride 100 ml @ 50 mls/hr Q2H PRN IV For Potassium 2.8 - 3.2 mEq/L ; Start 10/02/16 at 10:30; Stop 10/04/16 at 07:50; Status DC Potassium Chloride 100 ml @ 50 mls/hr Q2H PRN IV For Potassium 3.3 - 3.5 mEq/L ; Start 10/02/16 at 10:30; Stop 10/04/16 at 07:50; Status DC Potassium Chloride 100 ml @ 50 mls/hr Q2H PRN IV For Potassium 2.8 - 3.2 mEq/L ; Start 10/02/16 at 10:30; Stop 10/04/16 at 07:51; Status DC Potassium Chloride (KCl 40 Meq Premix Inj) 100 ml @ 25 mls/hr UNSCH PRN IV For Potassium 3.3 - 3.5 mEq/L; Start 10/02/16 at 10:30; Stop 10/04/16 at 07:51; Status DC Potassium Chloride (KCl 40 Meq/30 ml Liq) 40 meq UNSCH PRN PO/TUBE For Potassium 3.3 - 3.5 mEq/L; Start 10/02/16 at 10:30; Stop 10/04/16 at 07:51; Status DC Potassium Chloride (KCl 40 Meq/30 ml Liq) 40 meq UNSCH PRN PO/TUBE SEE LABEL COMMENTS; Start 10/02/16 at 10:30; Stop 10/04/16 at 07:51; Status DC Potassium Phosphate (K-Phos) 2,000 mg Q4H PRN PO For Phosphorus < 2.5 mg/dL; Start 10/02/16 at 10:30; Stop 10/04/16 at 07:50; Status DC Potassium Phosphate 2000 mg 2,000 mg UNSCH PRN PO/TUBE SEE LABEL COMMENTS; Start 10/02/16 at 10:30; Stop 10/04/16 at 07:51; Status DC Potassium Phosphate 30 mmol/ Sodium Chloride 260 ml @ 42 mls/hr UNSCH PRN IV SEE LABEL COMMENTS; Start 10/02/16 at 10:30; Stop 10/04/16 at 07:51; Status DC Sodium Phosphate/ Sodium Chloride (Sodium Phosphate Inj/NS 250 ml Inj) 250 ml @ 42 mls/hr UNSCH PRN IV For Phosphorus < 2.5 mg/dL; Start 10/02/16 at 10:30; Stop 10/04/16 at 07:51; Status DC Dextrose (D50w (Vial) Inj) 25 ml UNSCH PRN IV PUSH HYPOGLYCEMIA-SEE COMMENTS; Start 10/02/16 at 10:30; Stop 10/03/16 at 19:01; Status DC Insulin Human Regular (NovoLIN R SUPPLEMENTAL SCALE) 1 Q6HR SQ ; Start 10/02/16 at 12:00; Stop 10/03/16 at 19:01; Status DC Albuterol/ Ipratropium (Duoneb Neb) 1 ampule Q6HR NEB INH Last administered on 10/04/16 10:36; Start 10/02/16 at 16:00 Albuterol/ Ipratropium 1 ampule 1 ampule Q2HR NEB PRN INH WHEEZING; Start 10/02 at 10:30 Sodium Chloride (NS 1000 ml Inj) 1,000 ml @ 120 mls/hr Q8H20M IV Last administered on 10/04/16 10:26; Start 10/02/16 at 10:25 IV Flush (NS Flush) 2 ml UNSCH PRN IV FLUSH FLUSH AFTER USING IV ACCESS; Start 10/02/16 at 10:30 IV Flush (NS Flush) 2 ml BID IV FLUSH Last administered on 10/04/16 10:21; Start 10/02/16 at 21:00 Hydromorphone HCl (Dilaudid Pf Inj) 1 mg Q4H PRN IV PAIN SCALE 6 TO 10 Last administered on 10/03/16 01:46; Start 10/02/16 at 10:30 Pantoprazole Sodium (Protonix Inj) 40 mg DAILY IV Last administered on 10:27; Start 10/03/16 at 09:00; Stop 10/03/16 at 10:54; Status DC Ondansetron HCl (Zofran Inj) 4 mg Q6H PRN IV NAUSEA OR VOMITING; Start at 10:30 Miscellaneous Information 1 Q361D XX ; Start 10/02/16 at 10:30 Chlorhexidine Gluconate (Chlorhexidine 2% Cloth) 3 pack Taper DAILY@04 TOP Last administered on 10/03/16 04:00; Start 10/03/16 at 04:00; Stop 09/29/17 at 03:59 Chlorhexidine Gluconate 3 pack 3 pack UNSCH PRN TOP HYGIENIC CARE; Start at 10:30 Thiamine HCl/ Sodium Chloride (Thiamine Inj/NS Inj) 101 ml @ 101 mls/hr Q24H IV Last administered on 10/04/16 02:12; Start 10/03/16 at 02:00; Stop at 02:59; Status DC Thiamine HCl 100 mg 100 mg DAILY PO ; Start 10/06/16 at 09:00 Multivitamins/ Thiamine HCl/ Folic Acid/Sodium Chloride (Mvi-12 Inj/ Thiamine Inj/ Folvite Inj/1/2 NS 500 ml Inj) 511.2 ml @ 125 mls/hr ONCE ONCE IV Last administered on 10/02/16 12:42; Start 10/02/16 at 12:00; Stop 10/02/16 at 16:05 ; Status DC Multivitamins (Theragran) 1 tab DAILY PO Last administered on 10/04/16 10:20; Start 10/03/16 at 09:00 Iodixanol 100 ml 100 ml STK-MED ONCE IV Last administered on 10/02/16 15:12; Start 10/02/16 at 15:12; Stop 10/02/16 at 15:13; Status DC Piperacillin Sod/ Tazobactam Sod (Zosyn 2.25 Gm Premix) 50 ml @ 200 mls/hr Q6H IV Last administered on 10/04/16 10:26; Start 10/02/16 at 17:00 Nicotine (Habitrol 21 Mg Patch.24 Hr) 1 patch DAILY TD Last administered on 10:20; Start 10/02/16 at 17:00 Amlodipine Besylate (Norvasc) 10 mg DAILY PO Last administered on 10/04/16 10: 20; Start 10/02/16 at 16:49 Carvedilol (Coreg) 6.25 mg Q12HR PO ; Start 10/02/16 at 16:49; Stop 10/02/16 at 16:55; Status DC Labetalol HCl (Trandate Inj) 20 mg Q1H PRN IV PUSH sbp > 160; Start 10/02/16 at 17:00 Hydralazine HCl (Apresoline Inj) 10 mg Q30M PRN IV PUSH sbp > 160; Start at 17:00 Carvedilol (Coreg) 6.25 mg Q12H PO Last administered on 10/03/16 05:37; Start 10/02/16 at 18:00; Stop 10/03/16 at 06:10; Status DC Carvedilol (Coreg) 12.5 mg Q12H PO Last administered on 10/04/16 05:13; Start 10/03/16 at 18:00 Pantoprazole Sodium (Protonix) 20 mg DAILY PO Last administered on 10/04/16 10 :20; Start 10/04/16 at 09:00 Guaifenesin (Robitussin Liq) 200 mg Q6H PRN PO COUGH Last administered on 17:50; Start 10/03/16 at 17:15 A/P Assessment and Plan A/p 1. Severe Abdominal pain- has much improved CT of the abdomen with pneumoperitoneum. general surgery evaluation appreciated and recommended conservative treatment. diet has been advanced. continue pain control. 2. Hypertensive Urgency- overall improved. - started on norvasc and coreg. -will monitor and adjust the regimen as needed. -close f/u with pcp and this was d/w the patient. 3. Acute on Chronic Renal failure- improved -will monitor renal function. 4. Etoh Abuse -- Thiamine, MVI -- watch for withdraw 5. COPD -- wean o2 by NC for goal spo2 > 88% -- nebs q6h and q2h prn -- I.S. to bedside. 6- AAA/ PVD vascular surgery evaluation appreciated and recommended conservative treatment. dvt prophy: SCDs. gi prophylaxis: protonix iv. Discharge Planning dc home when cleared by surgery and if BP remains stable. f/u; pcp and surgery as outpatient. see med list. d/w the patient and RN. Hollis Carty MD Oct 04, 2016 11:26
[2016-10-04] MEDS ORDERED: CARV6.25 PO (11:28)
[2016-10-04] MEDS ORDERED: THERTAB15 PO (11:28)
[2016-10-04] MEDS ORDERED: AMLO10 PO (11:28)
[2016-10-04] MEDS ORDERED: VITA100T2 PO (11:28)
--- NOTE | 2016-10-04 11:29 | HHI.DCPOC ---
Discharge Care Plan Diagnosis: (1) Acute abdominal pain Additional Problems abdominal pain. Goals to Promote Your Health * To prevent worsening of your condition and complications * To maintain your health at the optimal level Directions to Meet Your Goals Take your medications as prescribed Follow your dietary instruction Follow activity as directed Keep your appointments as scheduled Take your immunizations and boosters as scheduled If your symptoms worsen call your PCP, if no PCP go to Urgent Care Center or Emergency Room Smoking is Dangerous to Your Health. Avoid second hand smoke Call the 24-hour hour crisis hotline for domestic abuse at Hollis Carty MD Oct 04, 2016 11:29
--- NOTE | 2016-10-04 13:36 | HHI.DS ---
Discharge Summary Admission Date Oct 02, 2016 at 06:46 Discharge Date: Oct 04, 2016 Admitting Diagnosis acute abdominal pain; AAA; hypertension; copd (1) Acute abdominal pain ICD Code: R10.9 Diagnosis: Principal (2) AAA (abdominal aortic aneurysm) ICD Code: I71.4 Diagnosis: Principal Procedures none Brief History - From Admission This is a 61yM with h/o etoh abuse, copd, smoking who presents bc of 3 day history of worsening severe abdominal pain. describes it as vague lower abdominal pain, cannot locate one area. worse with eating. associated diarrhea which is nonbloody. no constipation, n/v. denies fevers or chills. never had this before. at [facility] emergency department, he was found to have 5cm AAA on abdominal CT. also with leukocytosis of 11, cr 2.1. Also was found to be severely hypertensive in the ER requiring nicardipine infusion to control bp. critical care medicine is consulted to evaluate and manage his severe abdominal pain and hypertensive urgency. CBC/BMP: 10/04/16 0602 10/04/16 0602 Significant Findings Laboratory Tests Test 10/02/16 10/02/16 10/02/16 10/02/16 04:50 07:43 07:50 11:21 White Blood Count 11.1 TH/MM3 (4.0-11.0) Neutrophils (%) (Auto) 77.5 % (16.0-70.0) Basophils (%) (Auto) 3.2 % (0.0-2.0) Neutrophils # (Auto) 8.5 TH/MM3 (1.8-7.7) Basophils # (Auto) 0.4 TH/MM3 (0-0.2) Sodium Level 133 MEQ/L (136-145) Blood Urea Nitrogen 20 MG/DL (7-18) 21 MG/DL (7-18) Creatinine 2.10 MG/DL 1.84 MG/DL (0.60-1.30) (0.60-1.30) Estimat Glomerular Filtration 32 ML/MIN (>89) 38 ML/MIN (>89) Rate Random Glucose 135 MG/DL 113 MG/DL (74-106) (74-106) Aspartate Amino Transf 12 U/L (15-37) (AST/SGOT) Magnesium Level 1.4 MG/DL (1.5-2.5) Urine Turbidity MOD (CLEAR) Urine Protein 100 mg/dL (NEG-TRACE) Urine Occult Blood TRACE (NEG) C-Reactive Protein 4.80 MG/DL (0.00-0.30) Test 10/03/16 10/04/16 04:13 06:02 Hemoglobin 12.7 GM/DL 12.5 GM/DL (13.0-17.0) (13.0-17.0) Mean Corpuscular Hemoglobin 26.5 PG 26.6 PG (27.0-34.0) (27.0-34.0) Neutrophils (%) (Auto) 78.4 % (16.0-70.0) Activated Partial 31.0 SEC Thromboplast Time (24.3-30.1) Chloride Level 109 MEQ/L (98-107) Random Glucose 115 MG/DL (74-106) Calcium Level 8.2 MG/DL 8.4 MG/DL (8.5-10.1) (8.5-10.1) Aspartate Amino Transf 9 U/L (15-37) (AST/SGOT) Total Protein 5.9 GM/DL (6.4-8.2) Albumin 2.8 GM/DL (3.4-5.0) Hematocrit 38.5 % (39.0-51.0) Imaging Last Impressions Gall Bladder Ultrasound 10/02/16 0000 Signed Impressions: Service Date/Time: Sunday, October 02, 2016 19:36 - CONCLUSION: 1. Hepatic and right renal cyst. 2. No evidence for cholelithiasis. 3. Adenomyomatosis the gallbladder. Kasi Alford MD Chest X-Ray 10/02/16 0000 Signed Impressions: Service Date/Time: Sunday, October 02, 2016 05:16 - CONCLUSION: Normal examination. Colby Green MD Aorta w/Runoff CTA 10/02/16 0000 Signed Impressions: Service Date/Time: Sunday, October 02, 2016 14:57 - CONCLUSION: 1. There is no evidence of dissection of the thoracic or abdominal aorta. Measurements for the thoracic aorta are given above. 2. 4.7 cm infrarenal abdominal aortic aneurysm. 3. Extensive vascular disease with high-grade stenosis involving both common iliac arteries. 4. Complete occlusion of the right superficial femoral with eventual reconstitution of the right popliteal and three-vessel runoff below the knee. 5. Complete occlusion of the proximal left superficial femoral with reconstitution of its mid segment. Distally, all 3 trifurcation vessels are patent. Bart Rodriguez MD Aorta CTA 10/02/16 0000 Signed Impressions: Service Date/Time: Sunday, October 02, 2016 14:57 - CONCLUSION: 1. Interval development of pneumoperitoneum, new finding from CT abdomen pelvis performed earlier in the day. This may be related to perforation of small bowel or possible perforated diverticulum from the transverse colon. I suspect if likely coming from small bowel as there are some mildly inflamed small bowel loops in the region. 2. Abdominal aortic aneurysm measuring up to 4.9 cm. The mesenteric vessels are patent. 3. Small abdominal ascites. 4. Multiple low-density hepatic and renal lesions, indeterminate but likely benign. 5. Ascites. 6. Bibasilar consolidation. Kasi Alford MD Abdomen/Pelvis CT 10/02/16 0000 Signed Impressions: Service Date/Time: Sunday, October 02, 2016 05:39 - CONCLUSION: 1. No definite evidence for bowel obstruction with postsurgical changes seen. 2. Aneurysmal dilatation of the abdominal aorta is noted up to 4.9 cm. 3. Bilateral renal cysts. 4. Moderate free fluid. 5. Diverticulosis without diverticulitis. Colby Green MD PE at Discharge GENERAL: This is a well-nourished, well-developed patient, in no apparent distress. CARDIOVASCULAR: Regular rate and regular rhythm without murmurs, gallops, or rubs. RESPIRATORY: Clear to auscultation. Breath sounds equal bilaterally. No wheezes , rales, or rhonchi. GASTROINTESTINAL: Abdomen soft, non-tender, nondistended. Normal, active bowel sounds MUSCULOSKELETAL: Extremities without clubbing, cyanosis, or edema. NEURO: Alert & Oriented x4 to person, place, time, situation. Moves all ext x4 Hospital Course 1. Severe Abdominal pain- has much improved CT of the abdomen with pneumoperitoneum. general surgery evaluation appreciated and recommended conservative treatment. diet has been advanced. continue pain control. 2. Hypertensive Urgency- overall improved. - started on norvasc and coreg. -will monitor and adjust the regimen as needed. -close f/u with pcp and this was d/w the patient. 3. Acute on Chronic Renal failure- improved -will monitor renal function. 4. Etoh Abuse -- Thiamine, MVI -- watch for withdraw 5. COPD -- wean o2 by NC for goal spo2 > 88% -- nebs q6h and q2h prn -- I.S. to bedside. 6- AAA/ PVD vascular surgery evaluation appreciated and recommended conservative treatment. dvt prophy: SCDs. gi prophylaxis: protonix iv. Pt Condition on Discharge: Good Discharge Disposition: Discharge Home Discharge Time: <= 30 minutes Discharge Instructions DIET: Follow Instructions for: Heart Healthy Diet Activities you can perform: Regular-No Restrictions Follow up Referrals: PCP Follow-up Surgical Vascular Surgery New Medications: Amlodipine (Norvasc) 10 Mg Tab 10 MG PO DAILY hypertension Days 30 Ref 0 TAB Carvedilol (Coreg) 6.25 Mg Tab 12.5 MG PO Q12H hypertension Days 30 Ref 0 TAB Multiple Vitamin (Thera/Beta-Carotene) 1 Tab Tab 1 TAB PO DAILY vitamins Days 30 Ref 0 TAB Thiamine (Vitamin B-1) 100 Mg Tab 100 MG PO DAILY vitmain Days 30 Ref 0 TAB Continued Medications: Aspirin (Aspirin) 81 Mg Chew 162 MG CHEW DAILY PRN PAIN SCALE 1 TO 10 Ref 0 TAB Hollis Carty MD Oct 04, 2016 13:36
--- NOTE | 2016-10-04 13:44 | HHI.PR ---
Subjective Subjective Notes DAILY PROGRESS NOTE FOR SURGICAL ATTENDING, DR. MOIZ MORALES Resting in bed Objective Vitals/I&O Vital Signs Date Time Temp Pulse Resp B/P Pulse Ox O2 Delivery O2 Flow Rate FiO2 10/04/16 11:22 155/80 10/04/16 10:39 96 10/04/16 08:00 98.0 77 18 10/03/16 20:40 3.00 10/03/16 19:00 Nasal Cannula Labs Laboratory Tests Test 10/04/16 06:02 White Blood Count 5.7 Red Blood Count 4.71 Hemoglobin 12.5 Hematocrit 38.5 Mean Corpuscular Volume 81.8 Mean Corpuscular Hemoglobin 26.6 Mean Corpuscular Hemoglobin 32.6 Concent Red Cell Distribution Width 14.8 Platelet Count 155 Mean Platelet Volume 9.3 Sodium Level 142 Potassium Level 3.6 Chloride Level 107 Carbon Dioxide Level 27.1 Anion Gap 8 Blood Urea Nitrogen 10 Creatinine 0.60 Estimat Glomerular Filtration 137 Rate Random Glucose 106 Calcium Level 8.4 Date/Time Procedure Status Source Growth 10/02/16 07:15 Aerobic Blood Culture - Preliminary Resulted Blood Peripheral NO GROWTH IN 2 DAYS 10/02/16 07:15 Anaerobic Blood Culture - Preliminary Resulted Blood Peripheral NO GROWTH IN 2 DAYS Cardiovascular: Regular Lungs: Clear Abdomen: Non-distended, Non-tender Extremities: No edema A/P Problem List: (1) AAA (abdominal aortic aneurysm) (2) History of bladder cancer (3) Acute abdominal pain Assessment and Plan 61 year old male with abdominal pain and free air visualized on CTA -Abdominal exam benign -Advance to regular diet -US gallbladder reviewed -Non op AAA ---management per Dr. Salima winters for DC Attending Statement NOTE FOR SURGICAL ATTENDING, DR. MOIZ MORALES I agree with above assessment and plan. The exam, history, and the medical decision-making described in the above note were completed with the assistance of the mid-level provider. I reviewed and agree with the findings presented. I attest that I had a [id number] encounter with the patient on the same day, and personally performed and documented my assessment and findings in the medical record. The following services were provided during this hospital visit: Chart data review, vital sign assessments/reviewing monitor data Review of consultations notes if present. Medication orders/review and/or management Ordering and/or reviewing lab tests Ordering and/or interpreting/reviewing x-rays and/or diagnostic studies Care of the patient and discussion of the patient with the care team Documentation time To help prompt me to consider important information that might be impacting today's encounter and assessment, information from prior notes written by myself or my colleagues may have been "brought forward/copy and pasted" into today's note. Shelbie Carbajal Oct 04, 2016 13:44 Moiz Morales MD Oct 05, 2016 15:05
[2016-10-04] MEDS: PIPERACIL-TAZO 4.5 GM PREMIX 100 ML IV SCH ×2 (15:14→21:42)
[2016-10-04] MEDS ORDERED: NIFEdipine 10 MG CAP PO ONE (15:45)
[2016-10-05] VITALS (10 sets, daily range): BP systolic 142–183; BP diastolic 73–95; PULSE 72–83; RESP 17–21; TEMP 96–97.1; O2SAT 96–98
[2016-10-05] MEDS: CHLORHEXIDINE GLUCONATE 2 % 1 PACK (2 CLOTHS) TOP SCH ×2 (04:00→22:52)
[2016-10-05] MEDS: RESP: ALBUTEROL 2.5 MG/IPRATROPIUM 0.5 MG NEB (SCH) INH ×3 (04:00→15:27)
[2016-10-05] MEDS: ACETAMINOPHEN/HYDROcodone 325 MG/5 MG TAB PO PRN ×5 (04:40→22:57)
[2016-10-05] MEDS: PIPERACIL-TAZO 4.5 GM PREMIX 100 ML IV SCH ×2 (04:49→10:32)
[2016-10-05 04:58] LABS: HEMATOCRIT 42.3 % (39.0-51.0); MEAN CELL VOLUME 82.3 FL (80.0-100.0); MEAN CORPUSCULAR HEMOGLOBIN 26.9 PG (27.0-34.0); MEAN CORPUSCULAR HGB CONC 32.7 % (32.0-36.0); PLATELET COUNT 212 TH/MM3 (150-450); RED BLOOD COUNT 5.14 MIL/MM3 (4.50-5.90); RED CELL DISTRIBUTION WIDTH 14.8 % (11.6-17.2); REVIEW FLAG FINAL; WHITE BLOOD COUNT 8.6 TH/MM3 (4.0-11.0)
[2016-10-05] MEDS: SODIUM CHLOR 0.9% 1000 ML INJ 1,000 ML IV SCH (05:05)
[2016-10-05 05:06] LABS: BICARBONATE 28.8 MEQ/L (21.0-32.0); POTASSIUM 3.7 MEQ/L (3.5-5.1)
[2016-10-05] MEDS: CARVEDILOL 6.25 MG TAB PO SCH ×2 (06:19→18:41)
--- NOTE | 2016-10-05 06:32 | RADRPT ---
EXAM DATE/TIME: 10/05/2016 05:38 [place] COMPARISON: No previous studies available for comparison. INDICATIONS : Left lower quadrant abdominal pain. MEDICAL HISTORY : Hypertension. Chronic obstructive pulmonary disease. Carcinoma, bladder. Arthritis, C-diff SURGICAL HISTORY : Bilateral nephrostomy tubes, Radical prostatectomy with ileal conduit ENCOUNTER: Initial ACUITY: 1 day PAIN SCORE: 9/10 LOCATION: Left lower quadrant abdomen FINDINGS: Supine view of the abdomen was performed. The abdominal bowel gas pattern is normal. No abnormal ma sses, calcifications, or organomegaly is seen. The osseous structures are unremarkable. CONCLUSION: 1. Nonspecific bowel gas pattern without obstruction or free air. Multiple surgical clips overlie the pelvis. Moiz Valerio MD on October 05, 2016 at 6:29 Board Certified Radiologist. This report was verified electronically.
[2016-10-05] MEDS: PANTOPRAZOLE SOD 20 MG DELAYED RELEASE TAB PO SCH (08:48)
[2016-10-05] MEDS: MULTIVITAMIN TAB PO SCH (08:48)
[2016-10-05] MEDS: NICOTINE 21 MG/24 HR PATCH TD SCH (08:49)
[2016-10-05] MEDS: ARTIFICIAL TEARS OPTH SOLN 15 ML BTL EACH EYE SCH ×3 (08:50→18:00)
[2016-10-05] MEDS: SODIUM CHLORIDE 0.9% FLUSH 5 ML FLUSH IV FLUSH SCH ×2 (08:50→22:59)
--- NOTE | 2016-10-05 13:04 | HHI.PR ---
Subjective Remarks sounds somewhat anxious. had some abdominal pain earlier. BP still on high side and not well controlled. Objective Vitals Vital Signs Date Time Temp Pulse Resp B/P Pulse Ox O2 Delivery O2 Flow Rate FiO2 10/05/16 11:32 17 10/05/16 09:12 97 Nasal Cannula 2.00 10/05/16 08:23 96.9 75 18 164/79 97 10/05/16 04:17 145/73 10/05/16 00:16 96.8 73 21 161/89 96 10/04/16 20:08 97.2 87 22 142/72 93 10/04/16 16:00 97.4 96 18 172/94 97 10/04/16 15:55 96 21 I/O 10/04/16 10/04/16 10/04/16 10/05/16 10/05/16 10/05/16 07:00 15:00 23:00 07:00 15:00 23:00 Intake Total 886 ml 1291 ml 720 ml 480 ml Output Total 200 ml Balance 686 ml 1291 ml 720 ml 480 ml Intake Oral 240 ml 480 ml 720 ml 480 ml IV Total 646 ml 811 ml Output Urine Total 200 ml # Voids 1 3 3 1 # Bowel Movements 0 1 2 0 Result Diagram: 10/05/1642610/05/16426 Imaging Last Impressions Abdomen X-Ray 10/05/16420 Signed Impressions: Service Date/Time: Wednesday, October 05, 2016 05:38 - CONCLUSION: 1. Nonspecific bowel gas pattern without obstruction or free air. Multiple surgical clips overlie the pelvis. Moiz Valerio MD Gall Bladder Ultrasound 10/02/16 0000 Signed Impressions: Service Date/Time: Sunday, October 02, 2016 19:36 - CONCLUSION: 1. Hepatic and right renal cyst. 2. No evidence for cholelithiasis. 3. Adenomyomatosis the gallbladder. Kasi Alford MD Chest X-Ray 10/02/16 0000 Signed Impressions: Service Date/Time: Sunday, October 02, 2016 05:16 - CONCLUSION: Normal examination. Colby Green MD Aorta w/Runoff CTA 10/02/16 0000 Signed Impressions: Service Date/Time: Sunday, October 02, 2016 14:57 - CONCLUSION: 1. There is no evidence of dissection of the thoracic or abdominal aorta. Measurements for the thoracic aorta are given above. 2. 4.7 cm infrarenal abdominal aortic aneurysm. 3. Extensive vascular disease with high-grade stenosis involving both common iliac arteries. 4. Complete occlusion of the right superficial femoral with eventual reconstitution of the right popliteal and three-vessel runoff below the knee. 5. Complete occlusion of the proximal left superficial femoral with reconstitution of its mid segment. Distally, all 3 trifurcation vessels are patent. Bart Rodriguez MD Aorta CTA 10/02/16 0000 Signed Impressions: Service Date/Time: Sunday, October 02, 2016 14:57 - CONCLUSION: 1. Interval development of pneumoperitoneum, new finding from CT abdomen pelvis performed earlier in the day. This may be related to perforation of small bowel or possible perforated diverticulum from the transverse colon. I suspect if likely coming from small bowel as there are some mildly inflamed small bowel loops in the region. 2. Abdominal aortic aneurysm measuring up to 4.9 cm. The mesenteric vessels are patent. 3. Small abdominal ascites. 4. Multiple low-density hepatic and renal lesions, indeterminate but likely benign. 5. Ascites. 6. Bibasilar consolidation. Kasi Alford MD Abdomen/Pelvis CT 10/02/16 0000 Signed Impressions: Service Date/Time: Sunday, October 02, 2016 05:39 - CONCLUSION: 1. No definite evidence for bowel obstruction with postsurgical changes seen. 2. Aneurysmal dilatation of the abdominal aorta is noted up to 4.9 cm. 3. Bilateral renal cysts. 4. Moderate free fluid. 5. Diverticulosis without diverticulitis. Colby Green MD Objective Remarks GENERAL: This is a well-nourished, well-developed patient, in no apparent distress. CARDIOVASCULAR: Regular rate and regular rhythm without murmurs, gallops, or rubs. RESPIRATORY: Clear to auscultation. Breath sounds equal bilaterally. No wheezes , rales, or rhonchi. GASTROINTESTINAL: Abdomen soft, non-tender, nondistended. Normal, active bowel sounds MUSCULOSKELETAL: Extremities without clubbing, cyanosis, or edema. NEURO: Alert & Oriented x4 to person, place, time, situation. Moves all ext x4 Procedures none Medications and IVs Current Medications Hydromorphone HCl (Dilaudid Pf Inj) 1 mg ONCE ONCE IV PUSH Last administered on 10/02/16 05:03; Start 10/02/16 at 05:00; Stop 10/02/16 at 05:01; Status DC Ondansetron HCl 4 mg 4 mg ONCE ONCE IV PUSH Last administered on 10/02/16 05: 03; Start 10/02/16 at 05:00; Stop 10/02/16 at 05:01; Status DC Sodium Chloride (NS 1000 ml Inj) 1,000 ml @ 100 mls/hr Q10H IV Last administered on 10/02/16 05:02; Start 10/02/16 at 05:00; Stop 10/02/16 at 10:33 ; Status DC IV Flush (NS Flush) 2 ml UNSCH PRN IVF FLUSH AFTER USING IV ACCESS Last administered on 10/02/16 05:56; Start 10/02/16 at 05:00; Stop 10/02/16 at 07:03 ; Status DC Hydromorphone HCl (Dilaudid Pf Inj) 1 mg ONCE ONCE IV PUSH Last administered on 10/02/16 05:56; Start 10/02/16 at 06:00; Stop 10/02/16 at 06:01; Status DC Nitroglycerin (Nitroglycerin 2% Oint) 2 inch ONCE ONCE TOPICAL Last administered on 10/02/16 06:21; Start 10/02/16 at 06:30; Stop 10/02/16 at 06:31 ; Status DC IV Flush (NS Flush) 2 ml BID IVF Last administered on 10/02/16 08:31; Start at 09:00; Stop 10/02/16 at 10:41; Status DC IV Flush 2 ml 2 ml UNSCH PRN IVF FLUSH AFTER USING IV ACCESS Last administered on 10/02/16 07:16; Start 10/02/16 at 06:45; Stop 10/02/16 at 10:41; Status DC Piperacillin Sod/ Tazobactam Sod (Zosyn 4.5 Gm Premix) 100 ml @ 200 mls/hr ONCE ONCE IV Last administered on 10/02/16 07:16; Start 10/02/16 at 07:00; Stop 10/02/16 at 07:29; Status DC Hydromorphone HCl 1 mg 1 mg ONCE ONCE IV PUSH Last administered on 10/02/16 07:15; Start 10/02/16 at 07:00; Stop 10/02/16 at 07:01; Status DC Nicardipine HCl 25 mg/Sodium Chloride 260 ml @ 0 mls/hr TITRATE IV Last administered on 10/03/16 02:27; Start 10/02/16 at 06:45; Stop 10/03/16 at 06:09 ; Status DC Sodium Chloride (NS 1000 ml Inj) 1,000 ml @ 84 mls/hr [id number] IV Last administered on 10/02/16 07:16; Start 10/02/16 at 06:42; Stop 10/02/16 at 10:33 ; Status DC IV Flush (NS Flush) 2 ml UNSCH PRN IV FLUSH FLUSH AFTER USING IV ACCESS; Start 10/02/16 at 06:45; Stop 10/02/16 at 07:03; Status DC IV Flush (NS Flush) 2 ml BID IV FLUSH ; Start 10/02/16 at 09:00; Stop 10/02/16 at 09:00; Status DC Acetaminophen (Tylenol) 650 mg Q6H PRN PO PAIN 1-10 AND/OR FEVER >101F; Start 10/02/16 at 06:45 Acetaminophen/ Hydrocodone Bitart ([place] 5-325 Mg) 1 tab Q4H PRN PO PAIN SCALE 1 TO 5 Last administered on 10/05/16 10:32; Start 10/02/16 at 06:45 Morphine Sulfate (Morphine Inj) 2 mg Q2H PRN IV PAIN SCALE 6 TO 10; Start 10/02 at 06:45; Stop 10/02/16 at 10:33; Status DC Pantoprazole Sodium (Protonix Inj) 40 mg DAILY IV Last administered on 08:31; Start 10/02/16 at 09:00; Stop 10/02/16 at 10:42; Status DC Artificial Tears (Tears Naturale Opth Soln) 1 drop TID EACH EYE Last administered on 10/02/16 10:01; Start 10/02/16 at 09:00 Ondansetron HCl (Zofran Inj) 4 mg Q6H PRN IV NAUSEA OR VOMITING; Start at 06:45; Stop 10/02/16 at 10:42; Status DC Albuterol/ Ipratropium (Duoneb Neb) 1 ampule Q2HR NEB PRN INH WHEEZING; Start 10/02/16 at 06:45; Stop 10/02/16 at 10:40; Status DC Miscellaneous Information 1 Q361D XX ; Start 10/02/16 at 06:45; Stop 10/02/16 at 10:41; Status DC Chlorhexidine Gluconate (Chlorhexidine 2% Cloth) 3 pack Taper DAILY@04 TOP ; Start 10/03/16 at 04:00; Stop 10/03/16 at 04:00; Status DC Chlorhexidine Gluconate 3 pack 3 pack UNSCH PRN TOP HYGIENIC CARE; Start at 06:45; Stop 10/02/16 at 10:41; Status DC Ceftriaxone Sodium/Sodium Chloride (Rocephin Inj/NS Inj) 100 ml @ 200 mls/hr Q24H IV Last administered on 10/02/16 07:43; Start 10/02/16 at 07:00; Stop at 16:52; Status DC Hydromorphone HCl (Dilaudid Pf Inj) 1 mg NOW ONCE IV Last administered on 10/02 10:39; Start 10/02/16 at 10:30; Stop 10/02/16 at 10:31; Status DC Magnesium Oxide 800 mg 800 mg UNSCH PRN PO For Magnesium 1.2 - 1.6 mg/dL; Start 10/02/16 at 10:30; Stop 10/04/16 at 07:50; Status DC Magnesium Sulfate 4 gm/Sodium Chloride 100 ml @ 50 mls/hr UNSCH PRN IV For Magnesium 0.9 - 1.1 mg/dL; Start 10/02/16 at 10:30; Stop 10/04/16 at 07:50; Status DC Magnesium Sulfate 2 gm/Sodium Chloride 100 ml @ 50 mls/hr UNSCH PRN IV For Magnesium 1.2 - 1.6 mg/dL Last administered on 10/02/16 12:42; Start 10/02/16 at 10:30; Stop 10/04/16 at 07:50; Status DC Potassium Chloride 100 ml @ 50 mls/hr Q2H PRN IV For Potassium 2.8 - 3.2 mEq/L ; Start 10/02/16 at 10:30; Stop 10/04/16 at 07:50; Status DC Potassium Chloride 100 ml @ 50 mls/hr Q2H PRN IV For Potassium 3.3 - 3.5 mEq/L ; Start 10/02/16 at 10:30; Stop 10/04/16 at 07:50; Status DC Potassium Chloride 100 ml @ 50 mls/hr Q2H PRN IV For Potassium 2.8 - 3.2 mEq/L ; Start 10/02/16 at 10:30; Stop 10/04/16 at 07:51; Status DC Potassium Chloride (KCl 40 Meq Premix Inj) 100 ml @ 25 mls/hr UNSCH PRN IV For Potassium 3.3 - 3.5 mEq/L; Start 10/02/16 at 10:30; Stop 10/04/16 at 07:51; Status DC Potassium Chloride (KCl 40 Meq/30 ml Liq) 40 meq UNSCH PRN PO/TUBE For Potassium 3.3 - 3.5 mEq/L; Start 10/02/16 at 10:30; Stop 10/04/16 at 07:51; Status DC Potassium Chloride (KCl 40 Meq/30 ml Liq) 40 meq UNSCH PRN PO/TUBE SEE LABEL COMMENTS; Start 10/02/16 at 10:30; Stop 10/04/16 at 07:51; Status DC Potassium Phosphate (K-Phos) 2,000 mg Q4H PRN PO For Phosphorus < 2.5 mg/dL; Start 10/02/16 at 10:30; Stop 10/04/16 at 07:50; Status DC Potassium Phosphate 2000 mg 2,000 mg UNSCH PRN PO/TUBE SEE LABEL COMMENTS; Start 10/02/16 at 10:30; Stop 10/04/16 at 07:51; Status DC Potassium Phosphate 30 mmol/ Sodium Chloride 260 ml @ 42 mls/hr UNSCH PRN IV SEE LABEL COMMENTS; Start 10/02/16 at 10:30; Stop 10/04/16 at 07:51; Status DC Sodium Phosphate/ Sodium Chloride (Sodium Phosphate Inj/NS 250 ml Inj) 250 ml @ 42 mls/hr UNSCH PRN IV For Phosphorus < 2.5 mg/dL; Start 10/02/16 at 10:30; Stop 10/04/16 at 07:51; Status DC Dextrose (D50w (Vial) Inj) 25 ml UNSCH PRN IV PUSH HYPOGLYCEMIA-SEE COMMENTS; Start 10/02/16 at 10:30; Stop 10/03/16 at 19:01; Status DC Insulin Human Regular (NovoLIN R SUPPLEMENTAL SCALE) 1 Q6HR SQ ; Start 10/02/16 at 12:00; Stop 10/03/16 at 19:01; Status DC Albuterol/ Ipratropium (Duoneb Neb) 1 ampule Q6HR NEB INH Last administered on 10/05/16 09:12; Start 10/02/16 at 16:00 Albuterol/ Ipratropium 1 ampule 1 ampule Q2HR NEB PRN INH WHEEZING; Start 10/02 at 10:30 Sodium Chloride (NS 1000 ml Inj) 1,000 ml @ 120 mls/hr Q8H20M IV Last administered on 10/04/16 10:26; Start 10/02/16 at 10:25 IV Flush (NS Flush) 2 ml UNSCH PRN IV FLUSH FLUSH AFTER USING IV ACCESS; Start 10/02/16 at 10:30 IV Flush (NS Flush) 2 ml BID IV FLUSH Last administered on 10/05/16 08:50; Start 10/02/16 at 21:00 Hydromorphone HCl (Dilaudid Pf Inj) 1 mg Q4H PRN IV PAIN SCALE 6 TO 10 Last administered on 10/03/16 01:46; Start 10/02/16 at 10:30 Pantoprazole Sodium (Protonix Inj) 40 mg DAILY IV Last administered on 10:27; Start 10/03/16 at 09:00; Stop 10/03/16 at 10:54; Status DC Ondansetron HCl (Zofran Inj) 4 mg Q6H PRN IV NAUSEA OR VOMITING; Start at 10:30 Miscellaneous Information 1 Q361D XX ; Start 10/02/16 at 10:30 Chlorhexidine Gluconate (Chlorhexidine 2% Cloth) 3 pack Taper DAILY@04 TOP Last administered on 10/03/16 04:00; Start 10/03/16 at 04:00; Stop 09/29/17 at 03:59 Chlorhexidine Gluconate 3 pack 3 pack UNSCH PRN TOP HYGIENIC CARE; Start at 10:30 Thiamine HCl/ Sodium Chloride (Thiamine Inj/NS Inj) 101 ml @ 101 mls/hr Q24H IV Last administered on 10/04/16 02:12; Start 10/03/16 at 02:00; Stop at 02:59; Status DC Thiamine HCl 100 mg 100 mg DAILY PO ; Start 10/06/16 at 09:00 Multivitamins/ Thiamine HCl/ Folic Acid/Sodium Chloride (Mvi-12 Inj/ Thiamine Inj/ Folvite Inj/08/08 NS 500 ml Inj) 511.2 ml @ 125 mls/hr ONCE ONCE IV Last administered on 10/02/16 12:42; Start 10/02/16 at 12:00; Stop 10/02/16 at 16:05 ; Status DC Multivitamins (Theragran) 1 tab DAILY PO Last administered on 10/05/16 08:48; Start 10/03/16 at 09:00 Iodixanol 100 ml 100 ml STK-MED ONCE IV Last administered on 10/02/16 15:12; Start 10/02/16 at 15:12; Stop 10/02/16 at 15:13; Status DC Piperacillin Sod/ Tazobactam Sod (Zosyn 2.25 Gm Premix) 50 ml @ 200 mls/hr Q6H IV Last administered on 10/04/16 10:26; Start 10/02/16 at 17:00; Stop at 13:03; Status DC Nicotine (Habitrol 21 Mg Patch.24 Hr) 1 patch DAILY TD Last administered on 10/05 08:49; Start 10/02/16 at 17:00 Amlodipine Besylate (Norvasc) 10 mg DAILY PO Last administered on 10/05/16 08: 46; Start 10/02/16 at 16:49 Carvedilol (Coreg) 6.25 mg Q12HR PO ; Start 10/02/16 at 16:49; Stop 10/02/16 at 16:55; Status DC Labetalol HCl (Trandate Inj) 20 mg Q1H PRN IV PUSH sbp > 160; Start 10/02/16 at 17:00 Hydralazine HCl (Apresoline Inj) 10 mg Q30M PRN IV PUSH sbp > 160; Start at 17:00 Carvedilol (Coreg) 6.25 mg Q12H PO Last administered on 10/03/16 05:37; Start 10/02/16 at 18:00; Stop 10/03/16 at 06:10; Status DC Carvedilol (Coreg) 12.5 mg Q12H PO Last administered on 10/05/16 06:19; Start 10/03/16 at 18:00 Pantoprazole Sodium (Protonix) 20 mg DAILY PO Last administered on 10/05/16 08: 48; Start 10/04/16 at 09:00 Guaifenesin 200 mg 200 mg Q6H PRN PO COUGH Last administered on 10/03/16 17:50 ; Start 10/03/16 at 17:15 Piperacillin Sod/ Tazobactam Sod (Zosyn 4.5 Gm Premix) 100 ml @ 200 mls/hr Q6H IV Last administered on 10/05/16 10:32; Start 10/04/16 at 16:00 Nifedipine (Procardia) 30 mg ONCE ONCE PO Last administered on 10/04/16 16:19 ; Start 10/04/16 at 15:45; Stop 10/04/16 at 15:46; Status DC A/P Assessment and Plan A/p 1. Severe Abdominal pain- has much improved CT of the abdomen with pneumoperitoneum. general surgery evaluation appreciated and recommended conservative treatment. diet has been advanced. continue pain control. abdominal XR today with no free air. 2. Hypertensive Urgency- still with uncontrolled BP. - continue coreg. -change norvasc to procardia XL. -will monitor and adjust the regimen as needed. -will try xanax as it seems that anxiety is adversely affecting his BP. -close f/u with pcp and this was d/w the patient. 3. Acute on Chronic Renal failure- improved -will monitor renal function. 4. Etoh Abuse -- Thiamine, MVI -- watch for withdraw 5. COPD -- nebs q6h and q2h prn -- I.S. to bedside. 6- AAA/ PVD vascular surgery evaluation appreciated and recommended conservative treatment. dvt prophy: SCDs. gi prophylaxis: protonix iv. Discharge Planning dc home in am if BP better controlled. d/w the patient and his ( [phone]). d/w the RN. Hollis Carty MD Oct 05, 2016 13:04
[2016-10-05] MEDS: NIFEdipine 60 MG SUSTAINED RELEASE TAB PO SCH (13:20)
[2016-10-05] MEDS: ALPRAZolam 0.25 MG TAB PO PRN ×2 (13:20→23:04)
--- NOTE | 2016-10-05 14:25 | HHI.PR ---
Subjective Subjective Notes DAILY PROGRESS NOTE FOR SURGICAL ATTENDING, DR. MOIZ MORALES Patient tolerating diet Having regular bowel movements He says his discharge was canceled because of his high blood pressure He feels better because he got someonr to take care of his animals Objective Vitals/I&O Vital Signs Date Time Temp Pulse Resp B/P Pulse Ox O2 Delivery O2 Flow Rate FiO2 10/05/16 13:53 97 Nasal Cannula 2.00 10/05/16 12:52 83 183/89 10/05/16 12:15 96.3 18 10/04/16 15:55 21 Labs Laboratory Tests Test 10/05/16 04:27 White Blood Count 8.6 Red Blood Count 5.14 Hemoglobin 13.8 Hematocrit 42.3 Mean Corpuscular Volume 82.3 Mean Corpuscular Hemoglobin 26.9 Mean Corpuscular Hemoglobin 32.7 Concent Red Cell Distribution Width 14.8 Platelet Count 212 Mean Platelet Volume 9.0 Sodium Level 141 Potassium Level 3.7 Chloride Level 105 Carbon Dioxide Level 28.8 Anion Gap 7 Blood Urea Nitrogen 9 Creatinine 1.19 Estimat Glomerular Filtration 62 Rate Random Glucose 118 Lactic Acid Level 1.1 Calcium Level 9.0 Date/Time Procedure Status Source Growth 10/02/16 07:15 Aerobic Blood Culture - Preliminary Resulted Blood Peripheral NO GROWTH IN 3 DAYS 10/02/16 07:15 Anaerobic Blood Culture - Preliminary Resulted Blood Peripheral NO GROWTH IN 3 DAYS Radiology Last Impressions Abdomen X-Ray 10/05/16 0421 Signed Impressions: Service Date/Time: Wednesday, October 05, 2016 05:38 - CONCLUSION: 1. Nonspecific bowel gas pattern without obstruction or free air. Multiple surgical clips overlie the pelvis. Moiz Valerio MD Gall Bladder Ultrasound 10/02/16 0000 Signed Impressions: Service Date/Time: Sunday, October 02, 2016 19:36 - CONCLUSION: 1. Hepatic and right renal cyst. 2. No evidence for cholelithiasis. 3. Adenomyomatosis the gallbladder. Kasi Alford MD Chest X-Ray 10/02/16 0000 Signed Impressions: Service Date/Time: Sunday, October 02, 2016 05:16 - CONCLUSION: Normal examination. Colby Green MD Aorta w/Runoff CTA 10/02/16 0000 Signed Impressions: Service Date/Time: Sunday, October 02, 2016 14:57 - CONCLUSION: 1. There is no evidence of dissection of the thoracic or abdominal aorta. Measurements for the thoracic aorta are given above. 2. 4.7 cm infrarenal abdominal aortic aneurysm. 3. Extensive vascular disease with high-grade stenosis involving both common iliac arteries. 4. Complete occlusion of the right superficial femoral with eventual reconstitution of the right popliteal and three-vessel runoff below the knee. 5. Complete occlusion of the proximal left superficial femoral with reconstitution of its mid segment. Distally, all 3 trifurcation vessels are patent. Bart Rodriguez MD Aorta CTA 10/02/16 0000 Signed Impressions: Service Date/Time: Sunday, October 02, 2016 14:57 - CONCLUSION: 1. Interval development of pneumoperitoneum, new finding from CT abdomen pelvis performed earlier in the day. This may be related to perforation of small bowel or possible perforated diverticulum from the transverse colon. I suspect if likely coming from small bowel as there are some mildly inflamed small bowel loops in the region. 2. Abdominal aortic aneurysm measuring up to 4.9 cm. The mesenteric vessels are patent. 3. Small abdominal ascites. 4. Multiple low-density hepatic and renal lesions, indeterminate but likely benign. 5. Ascites. 6. Bibasilar consolidation. Kasi Alford MD Abdomen/Pelvis CT 10/02/16 0000 Signed Impressions: Service Date/Time: Sunday, October 02, 2016 05:39 - CONCLUSION: 1. No definite evidence for bowel obstruction with postsurgical changes seen. 2. Aneurysmal dilatation of the abdominal aorta is noted up to 4.9 cm. 3. Bilateral renal cysts. 4. Moderate free fluid. 5. Diverticulosis without diverticulitis. Colby Green MD Cardiovascular: Regular Abdomen: Other (mild soreness left lower quadrant) Extremities: No edema A/P Problem List: (1) AAA (abdominal aortic aneurysm) (2) History of bladder cancer (3) Acute abdominal pain Plan: Pain has subsided however he has little bit of soreness in the left lower quadrant Assessment and Plan 61 year old male with abdominal pain and free air visualized on CTA -Abdominal exam benign Tolerating diet -Non op AAA ---management per Dr. Borrego Control blood pressure His tenderness seems to be on the left lower quadrant now I will write a prescription to cover for diverticulitis Moiz Morales MD Oct 05, 2016 14:25
[2016-10-05] MEDS ORDERED: METR-1 PO (14:26)
[2016-10-05] MEDS ORDERED: CIPR-9 PO (14:26)
[2016-10-06] VITALS (9 sets, daily range): BP systolic 159–181; BP diastolic 82–112; PULSE 67–95; RESP 18–22; TEMP 96.1–97.6; O2SAT 94–99
[2016-10-06] MEDS: RESP: ALBUTEROL 2.5 MG/IPRATROPIUM 0.5 MG NEB (SCH) INH ×3 (03:54→15:33)
[2016-10-06] MEDS: ACETAMINOPHEN/HYDROcodone 325 MG/5 MG TAB PO PRN ×4 (04:09→23:36)
[2016-10-06 05:55] LABS: HEMATOCRIT 42.7 % (39.0-51.0); MEAN CELL VOLUME 81.5 FL (80.0-100.0); MEAN CORPUSCULAR HEMOGLOBIN 27.3 PG (27.0-34.0); MEAN CORPUSCULAR HGB CONC 33.5 % (32.0-36.0); PLATELET COUNT 219 TH/MM3 (150-450); RED BLOOD COUNT 5.24 MIL/MM3 (4.50-5.90); RED CELL DISTRIBUTION WIDTH 14.8 % (11.6-17.2); REVIEW FLAG FINAL; WHITE BLOOD COUNT 8.5 TH/MM3 (4.0-11.0)
[2016-10-06] MEDS: CARVEDILOL 6.25 MG TAB PO SCH ×2 (06:01→17:51)
[2016-10-06 06:15] LABS: BICARBONATE 24.8 MEQ/L (21.0-32.0); POTASSIUM 3.6 MEQ/L (3.5-5.1)
[2016-10-06] MEDS: ARTIFICIAL TEARS OPTH SOLN 15 ML BTL EACH EYE SCH ×3 (09:00→17:51)
[2016-10-06] MEDS: THIAMINE HCL 100 MG TAB PO SCH (09:00)
[2016-10-06] MEDS: MULTIVITAMIN TAB PO SCH (09:52)
[2016-10-06] MEDS: NIFEdipine 60 MG SUSTAINED RELEASE TAB PO SCH (09:52)
[2016-10-06] MEDS: PANTOPRAZOLE SOD 20 MG DELAYED RELEASE TAB PO SCH (09:53)
[2016-10-06] MEDS: NICOTINE 21 MG/24 HR PATCH TD SCH (09:54)
[2016-10-06] MEDS: SODIUM CHLORIDE 0.9% FLUSH 5 ML FLUSH IV FLUSH SCH ×2 (09:56→19:44)
[2016-10-06] MEDS: ALPRAZolam 0.25 MG TAB PO PRN ×2 (10:01→19:45)
--- NOTE | 2016-10-06 10:58 | HHI.PR ---
Subjective Remarks in no acute distress. still with some abdominal pain. no nausea or vomiting. Objective Vitals Vital Signs Date Time Temp Pulse Resp B/P Pulse Ox O2 Delivery O2 Flow Rate FiO2 10/06/16 10:06 95 21 10/06/16 08:14 96.1 77 20 170/89 96 10/06/16 05:09 16 10/06/16 04:17 97.6 72 19 159/86 96 10/06/16 00:15 96.2 67 22 160/82 96 10/05/16 20:40 96 Nasal Cannula 21 10/05/16 20:16 96.0 73 21 177/88 96 10/05/16 20:00 96 Nasal Cannula 2.00 10/05/16 16:00 97.1 72 17 156/88 98 10/05/16 15:32 73 142/95 98 10/05/16 13:53 97 Nasal Cannula 2.00 10/05/16 12:52 83 183/89 10/05/16 12:15 96.3 74 18 168/95 97 I/O 10/05/16 10/05/16 10/05/16 10/06/16 10/06/16 10/06/16 07:00 15:00 23:00 07:00 15:00 23:00 Intake Total 480 ml 720 ml 480 ml 360 ml Balance 480 ml 720 ml 480 ml 360 ml Intake Oral 480 ml 720 ml 480 ml 360 ml # Voids 1 3 1 1 # Bowel Movements 0 2 1 0 Result Diagram: 10/06/16 0458 10/06/16 0450 Imaging Last Impressions Abdomen X-Ray 10/05/16 0421 Signed Impressions: Service Date/Time: Wednesday, October 05, 2016 05:38 - CONCLUSION: 1. Nonspecific bowel gas pattern without obstruction or free air. Multiple surgical clips overlie the pelvis. Moiz Valerio MD Gall Bladder Ultrasound 10/02/16 0000 Signed Impressions: Service Date/Time: Sunday, October 02, 2016 19:36 - CONCLUSION: 1. Hepatic and right renal cyst. 2. No evidence for cholelithiasis. 3. Adenomyomatosis the gallbladder. Kasi Alford MD Chest X-Ray 10/02/16 0000 Signed Impressions: Service Date/Time: Sunday, October 02, 2016 05:16 - CONCLUSION: Normal examination. Colby Green MD Aorta w/Runoff CTA 10/02/16 Signed Impressions: Service Date/Time: Sunday, October 02, 2016 14:57 - CONCLUSION: 1. There is no evidence of dissection of the thoracic or abdominal aorta. Measurements for the thoracic aorta are given above. 2. 4.7 cm infrarenal abdominal aortic aneurysm. 3. Extensive vascular disease with high-grade stenosis involving both common iliac arteries. 4. Complete occlusion of the right superficial femoral with eventual reconstitution of the right popliteal and three-vessel runoff below the knee. 5. Complete occlusion of the proximal left superficial femoral with reconstitution of its mid segment. Distally, all 3 trifurcation vessels are patent. Bart Rodriguez MD Aorta CTA 10/02/16 Signed Impressions: Service Date/Time: Sunday, October 02, 2016 14:57 - CONCLUSION: 1. Interval development of pneumoperitoneum, new finding from CT abdomen pelvis performed earlier in the day. This may be related to perforation of small bowel or possible perforated diverticulum from the transverse colon. I suspect if likely coming from small bowel as there are some mildly inflamed small bowel loops in the region. 2. Abdominal aortic aneurysm measuring up to 4.9 cm. The mesenteric vessels are patent. 3. Small abdominal ascites. 4. Multiple low-density hepatic and renal lesions, indeterminate but likely benign. 5. Ascites. 6. Bibasilar consolidation. Kasi Alford MD Abdomen/Pelvis CT 10/02/16 Signed Impressions: Service Date/Time: Sunday, October 02, 2016 05:39 - CONCLUSION: 1. No definite evidence for bowel obstruction with postsurgical changes seen. 2. Aneurysmal dilatation of the abdominal aorta is noted up to 4.9 cm. 3. Bilateral renal cysts. 4. Moderate free fluid. 5. Diverticulosis without diverticulitis. Colby Green MD Objective Remarks GENERAL: This is a well-nourished, well-developed patient, in no apparent distress. CARDIOVASCULAR: Regular rate and regular rhythm without murmurs, gallops, or rubs. RESPIRATORY: Clear to auscultation. Breath sounds equal bilaterally. No wheezes , rales, or rhonchi. GASTROINTESTINAL: Abdomen soft, non-tender, nondistended. Normal, active bowel sounds MUSCULOSKELETAL: Extremities without clubbing, cyanosis, or edema. NEURO: Alert & Oriented x4 to person, place, time, situation. Moves all ext x4 Procedures none Medications and IVs Current Medications Hydromorphone HCl (Dilaudid Pf Inj) 1 mg ONCE ONCE IV PUSH Last administered on 10/02/16 05:03; Start 10/02/16 at 05:00; Stop 10/02/16 at 05:01; Status DC Ondansetron HCl 4 mg 4 mg ONCE ONCE IV PUSH Last administered on 10/02/16 05: 03; Start 10/02/16 at 05:00; Stop 10/02/16 at 05:01; Status DC Sodium Chloride (NS 1000 ml Inj) 1,000 ml @ 100 mls/hr Q10H IV Last administered on 10/02/16 05:02; Start 10/02/16 at 05:00; Stop 10/02/16 at 10:33 ; Status DC IV Flush (NS Flush) 2 ml UNSCH PRN IVF FLUSH AFTER USING IV ACCESS Last administered on 10/02/16 05:56; Start 10/02/16 at 05:00; Stop 10/02/16 at 07:03 ; Status DC Hydromorphone HCl (Dilaudid Pf Inj) 1 mg ONCE ONCE IV PUSH Last administered on 10/02/16 05:56; Start 10/02/16 at 06:00; Stop 10/02/16 at 06:01; Status DC Nitroglycerin (Nitroglycerin 2% Oint) 2 inch ONCE ONCE TOPICAL Last administered on 10/02/16 06:21; Start 10/02/16 at 06:30; Stop 10/02/16 at 06:31 ; Status DC IV Flush (NS Flush) 2 ml BID IVF Last administered on 10/02/16 08:31; Start at 09:00; Stop 10/02/16 at 10:41; Status DC IV Flush 2 ml 2 ml UNSCH PRN IVF FLUSH AFTER USING IV ACCESS Last administered on 10/02/16 07:16; Start 10/02/16 at 06:45; Stop 10/02/16 at 10:41; Status DC Piperacillin Sod/ Tazobactam Sod (Zosyn 4.5 Gm Premix) 100 ml @ 200 mls/hr ONCE ONCE IV Last administered on 10/02/16 07:16; Start 10/02/16 at 07:00; Stop 10/02/16 at 07:29; Status DC Hydromorphone HCl 1 mg 1 mg ONCE ONCE IV PUSH Last administered on 10/02/16 07:15; Start 10/02/16 at 07:00; Stop 10/02/16 at 07:01; Status DC Nicardipine HCl 25 mg/Sodium Chloride 260 ml @ 0 mls/hr TITRATE IV Last administered on 10/03/16 02:27; Start 10/02/16 at 06:45; Stop 10/03/16 at 06:09 ; Status DC Sodium Chloride (NS 1000 ml Inj) 1,000 ml @ 84 mls/hr [id number] IV Last administered on 10/02/16 07:16; Start 10/02/16 at 06:42; Stop 10/02/16 at 10:33 ; Status DC IV Flush (NS Flush) 2 ml UNSCH PRN IV FLUSH FLUSH AFTER USING IV ACCESS; Start 10/02/16 at 06:45; Stop 10/02/16 at 07:03; Status DC IV Flush (NS Flush) 2 ml BID IV FLUSH ; Start 10/02/16 at 09:00; Stop 10/02/16 at 09:00; Status DC Acetaminophen (Tylenol) 650 mg Q6H PRN PO PAIN 1-10 AND/OR FEVER >101F; Start 10/02/16 at 06:45 Acetaminophen/ Hydrocodone Bitart ([place] 5-325 Mg) 1 tab Q4H PRN PO PAIN SCALE 1 TO 5 Last administered on 10/06/16 09:55; Start 10/02/16 at 06:45 Morphine Sulfate (Morphine Inj) 2 mg Q2H PRN IV PAIN SCALE 6 TO 10; Start 10/02 at 06:45; Stop 10/02/16 at 10:33; Status DC Pantoprazole Sodium (Protonix Inj) 40 mg DAILY IV Last administered on 08:31; Start 10/02/16 at 09:00; Stop 10/02/16 at 10:42; Status DC Artificial Tears (Tears Naturale Opth Soln) 1 drop TID EACH EYE Last administered on 10/02/16 10:01; Start 10/02/16 at 09:00 Ondansetron HCl (Zofran Inj) 4 mg Q6H PRN IV NAUSEA OR VOMITING; Start at 06:45; Stop 10/02/16 at 10:42; Status DC Albuterol/ Ipratropium (Duoneb Neb) 1 ampule Q2HR NEB PRN INH WHEEZING; Start 10/02/16 at 06:45; Stop 10/02/16 at 10:40; Status DC Miscellaneous Information 1 Q361D XX ; Start 10/02/16 at 06:45; Stop 10/02/16 at 10:41; Status DC Chlorhexidine Gluconate (Chlorhexidine 2% Cloth) 3 pack Taper DAILY@04 TOP ; Start 10/03/16 at 04:00; Stop 10/03/16 at 04:00; Status DC Chlorhexidine Gluconate 3 pack 3 pack UNSCH PRN TOP HYGIENIC CARE; Start at 06:45; Stop 10/02/16 at 10:41; Status DC Ceftriaxone Sodium/Sodium Chloride (Rocephin Inj/NS Inj) 100 ml @ 200 mls/hr Q24H IV Last administered on 10/02/16 07:43; Start 10/02/16 at 07:00; Stop at 16:52; Status DC Hydromorphone HCl (Dilaudid Pf Inj) 1 mg NOW ONCE IV Last administered on 10/02 10:39; Start 10/02/16 at 10:30; Stop 10/02/16 at 10:31; Status DC Magnesium Oxide 800 mg 800 mg UNSCH PRN PO For Magnesium 1.2 - 1.6 mg/dL; Start 10/02/16 at 10:30; Stop 10/04/16 at 07:50; Status DC Magnesium Sulfate 4 gm/Sodium Chloride 100 ml @ 50 mls/hr UNSCH PRN IV For Magnesium 0.9 - 1.1 mg/dL; Start 10/02/16 at 10:30; Stop 10/04/16 at 07:50; Status DC Magnesium Sulfate 2 gm/Sodium Chloride 100 ml @ 50 mls/hr UNSCH PRN IV For Magnesium 1.2 - 1.6 mg/dL Last administered on 10/02/16 12:42; Start 10/02/16 at 10:30; Stop 10/04/16 at 07:50; Status DC Potassium Chloride 100 ml @ 50 mls/hr Q2H PRN IV For Potassium 2.8 - 3.2 mEq/L ; Start 10/02/16 at 10:30; Stop 10/04/16 at 07:50; Status DC Potassium Chloride 100 ml @ 50 mls/hr Q2H PRN IV For Potassium 3.3 - 3.5 mEq/L ; Start 10/02/16 at 10:30; Stop 10/04/16 at 07:50; Status DC Potassium Chloride 100 ml @ 50 mls/hr Q2H PRN IV For Potassium 2.8 - 3.2 mEq/L ; Start 10/02/16 at 10:30; Stop 10/04/16 at 07:51; Status DC Potassium Chloride (KCl 40 Meq Premix Inj) 100 ml @ 25 mls/hr UNSCH PRN IV For Potassium 3.3 - 3.5 mEq/L; Start 10/02/16 at 10:30; Stop 10/04/16 at 07:51; Status DC Potassium Chloride (KCl 40 Meq/30 ml Liq) 40 meq UNSCH PRN PO/TUBE For Potassium 3.3 - 3.5 mEq/L; Start 10/02/16 at 10:30; Stop 10/04/16 at 07:51; Status DC Potassium Chloride (KCl 40 Meq/30 ml Liq) 40 meq UNSCH PRN PO/TUBE SEE LABEL COMMENTS; Start 10/02/16 at 10:30; Stop 10/04/16 at 07:51; Status DC Potassium Phosphate (K-Phos) 2,000 mg Q4H PRN PO For Phosphorus < 2.5 mg/dL; Start 10/02/16 at 10:30; Stop 10/04/16 at 07:50; Status DC Potassium Phosphate 2000 mg 2,000 mg UNSCH PRN PO/TUBE SEE LABEL COMMENTS; Start 10/02/16 at 10:30; Stop 10/04/16 at 07:51; Status DC Potassium Phosphate 30 mmol/ Sodium Chloride 260 ml @ 42 mls/hr UNSCH PRN IV SEE LABEL COMMENTS; Start 10/02/16 at 10:30; Stop 10/04/16 at 07:51; Status DC Sodium Phosphate/ Sodium Chloride (Sodium Phosphate Inj/NS 250 ml Inj) 250 ml @ 42 mls/hr UNSCH PRN IV For Phosphorus < 2.5 mg/dL; Start 10/02/16 at 10:30; Stop 10/04/16 at 07:51; Status DC Dextrose (D50w (Vial) Inj) 25 ml UNSCH PRN IV PUSH HYPOGLYCEMIA-SEE COMMENTS; Start 10/02/16 at 10:30; Stop 10/03/16 at 19:01; Status DC Insulin Human Regular (NovoLIN R SUPPLEMENTAL SCALE) 1 Q6HR SQ ; Start 10/02/16 at 12:00; Stop 10/03/16 at 19:01; Status DC Albuterol/ Ipratropium (Duoneb Neb) 1 ampule Q6HR NEB INH Last administered on 10/05/16 15:27; Start 10/02/16 at 16:00 Albuterol/ Ipratropium 1 ampule 1 ampule Q2HR NEB PRN INH WHEEZING; Start 10/02 at 10:30 Sodium Chloride (NS 1000 ml Inj) 1,000 ml @ 120 mls/hr Q8H20M IV Last administered on 10/04/16 10:26; Start 10/02/16 at 10:25; Stop 10/05/16 at 13:01 ; Status DC IV Flush (NS Flush) 2 ml UNSCH PRN IV FLUSH FLUSH AFTER USING IV ACCESS; Start 10/02/16 at 10:30 IV Flush (NS Flush) 2 ml BID IV FLUSH Last administered on 10/06/16 09:56; Start 10/02/16 at 21:00 Hydromorphone HCl (Dilaudid Pf Inj) 1 mg Q4H PRN IV PAIN SCALE 6 TO 10 Last administered on 10/03/16 01:46; Start 10/02/16 at 10:30 Pantoprazole Sodium (Protonix Inj) 40 mg DAILY IV Last administered on 10:27; Start 10/03/16 at 09:00; Stop 10/03/16 at 10:54; Status DC Ondansetron HCl (Zofran Inj) 4 mg Q6H PRN IV NAUSEA OR VOMITING; Start at 10:30 Miscellaneous Information 1 Q361D XX ; Start 10/02/16 at 10:30 Chlorhexidine Gluconate (Chlorhexidine 2% Cloth) 3 pack Taper DAILY@04 TOP Last administered on 10/03/16 04:00; Start 10/03/16 at 04:00; Stop 09/29/17 at 03:59 Chlorhexidine Gluconate 3 pack 3 pack UNSCH PRN TOP HYGIENIC CARE; Start at 10:30 Thiamine HCl/ Sodium Chloride (Thiamine Inj/NS Inj) 101 ml @ 101 mls/hr Q24H IV Last administered on 10/04/16 02:12; Start 10/03/16 at 02:00; Stop at 02:59; Status DC Thiamine HCl 100 mg 100 mg DAILY PO Last administered on 10/06/16 09:00; Start 10/06/16 at 09:00 Multivitamins/ Thiamine HCl/ Folic Acid/Sodium Chloride (Mvi-12 Inj/ Thiamine Inj/ Folvite Inj/08/08 NS 500 ml Inj) 511.2 ml @ 125 mls/hr ONCE ONCE IV Last administered on 10/02/16 12:42; Start 10/02/16 at 12:00; Stop 10/02/16 at 16:05 ; Status DC Multivitamins (Theragran) 1 tab DAILY PO Last administered on 10/06/16 09:52; Start 10/03/16 at 09:00 Iodixanol 100 ml 100 ml STK-MED ONCE IV Last administered on 10/02/16 15:12; Start 10/02/16 at 15:12; Stop 10/02/16 at 15:13; Status DC Piperacillin Sod/ Tazobactam Sod (Zosyn 2.25 Gm Premix) 50 ml @ 200 mls/hr Q6H IV Last administered on 10/04/16 10:26; Start 10/02/16 at 17:00; Stop at 13:03; Status DC Nicotine (Habitrol 21 Mg Patch.24 Hr) 1 patch DAILY TD Last administered on 10/06 09:54; Start 10/02/16 at 17:00 Amlodipine Besylate (Norvasc) 10 mg DAILY PO Last administered on 10/05/16 08: 46; Start 10/02/16 at 16:49; Stop 10/05/16 at 13:02; Status DC Carvedilol (Coreg) 6.25 mg Q12HR PO ; Start 10/02/16 at 16:49; Stop 10/02/16 at 16:55; Status DC Labetalol HCl (Trandate Inj) 20 mg Q1H PRN IV PUSH sbp > 160; Start 10/02/16 at 17:00 Hydralazine HCl (Apresoline Inj) 10 mg Q30M PRN IV PUSH sbp > 160; Start at 17:00 Carvedilol (Coreg) 6.25 mg Q12H PO Last administered on 10/03/16 05:37; Start 10/02/16 at 18:00; Stop 10/03/16 at 06:10; Status DC Carvedilol (Coreg) 12.5 mg Q12H PO Last administered on 10/06/16 06:01; Start 10/03/16 at 18:00 Pantoprazole Sodium (Protonix) 20 mg DAILY PO Last administered on 10/06/16 09: 53; Start 10/04/16 at 09:00 Guaifenesin 200 mg 200 mg Q6H PRN PO COUGH Last administered on 10/03/16 17:50 ; Start 10/03/16 at 17:15 Piperacillin Sod/ Tazobactam Sod (Zosyn 4.5 Gm Premix) 100 ml @ 200 mls/hr Q6H IV Last administered on 10/05/16 10:32; Start 10/04/16 at 16:00; Stop 10/05/16 at 13:06; Status DC Nifedipine (Procardia) 30 mg ONCE ONCE PO Last administered on 10/04/16 16:19 ; Start 10/04/16 at 15:45; Stop 10/04/16 at 15:46; Status DC Alprazolam (Xanax) 0.25 mg Q8H PRN PO ANXIETY Last administered on 10/06/16 10: 01; Start 10/05/16 at 13:00 Nifedipine (Procardia Xl) 60 mg DAILY PO Last administered on 10/06/16 09:52; Start 10/05/16 at 13:00 A/P Assessment and Plan A/p 1. Severe Abdominal pain- has improved CT of the abdomen with pneumoperitoneum. general surgery evaluation appreciated and recommended conservative treatment. diet has been advanced. continue pain control. will start on po Abx. 2. Hypertensive Urgency- still with uncontrolled BP. - continue coreg. -continue procardia XL; will give extra dose of Procardia this evening. -will monitor and adjust the regimen as needed. -close f/u with pcp and this was d/w the patient. 3. Acute on Chronic Renal failure- with increase in Creatinine. -start IV fluid -will monitor renal function. 4. Etoh Abuse -- Thiamine, MVI -- watch for withdraw 5. COPD -- nebs q6h and q2h prn -- I.S. to bedside. 6- AAA/ PVD vascular surgery evaluation appreciated and recommended conservative treatment. dvt prophy: SCDs. gi prophylaxis: protonix iv. Discharge Planning dc home in am if BP better controlled and renal function stable. d/w the patient . d/w the RN. Hollis Craty MD Oct 06, 2016 10:58
[2016-10-06] MEDS ORDERED: SODIUM CHLOR 0.9% 1000 ML INJ 1,000 ML IV ONE (11:00)
[2016-10-06] MEDS: CIPROFLOXACIN 250 MG TAB PO SCH ×2 (13:03→23:36)
[2016-10-06] MEDS: metroNIDAZOLE 500 MG TAB PO SCH ×2 (13:03→19:45)
[2016-10-06] MEDS: hydrALAZINE HCL 20 MG/ML VIAL IV PUSH PRN ×2 (13:07→19:44)
[2016-10-06] MEDS: HYDROmorphone HCL PF 1 MG/ML VIAL IV PRN ×2 (15:55→19:45)
[2016-10-06] MEDS ORDERED: NIFEdipine 30 MG SUSTAINED RELEASE TAB PO ONE (18:00)
[2016-10-07] VITALS (7 sets, daily range): BP systolic 149–178; BP diastolic 79–94; PULSE 82–89; RESP 18–20; TEMP 95.9–98.4; O2SAT 91–98
[2016-10-07] MEDS: HYDROmorphone HCL PF 1 MG/ML VIAL IV PRN ×3 (00:18→15:12)
[2016-10-07] MEDS: cloNIDine HCL 0.1 MG TAB PO PRN (00:57)
[2016-10-07] MEDS: ALPRAZolam 0.25 MG TAB PO PRN (04:34)
[2016-10-07] MEDS: ACETAMINOPHEN/HYDROcodone 325 MG/5 MG TAB PO PRN ×3 (04:34→17:42)
[2016-10-07 05:29] LABS: HEMATOCRIT 42.8 % (39.0-51.0); MEAN CORPUSCULAR HEMOGLOBIN 27.2 PG (27.0-34.0); MEAN CORPUSCULAR HGB CONC 33.6 % (32.0-36.0); PLATELET COUNT 228 TH/MM3 (150-450); RED BLOOD COUNT 5.28 MIL/MM3 (4.50-5.90); RED CELL DISTRIBUTION WIDTH 14.8 % (11.6-17.2); REVIEW FLAG FINAL; WHITE BLOOD COUNT 8.8 TH/MM3 (4.0-11.0)
[2016-10-07 05:52] LABS: BICARBONATE 24.4 MEQ/L (21.0-32.0); POTASSIUM 3.8 MEQ/L (3.5-5.1)
[2016-10-07] MEDS: metroNIDAZOLE 500 MG TAB PO SCH ×3 (06:03→20:49)
[2016-10-07] MEDS: CARVEDILOL 6.25 MG TAB PO SCH ×2 (06:04→17:39)
[2016-10-07] MEDS: ARTIFICIAL TEARS OPTH SOLN 15 ML BTL EACH EYE SCH ×3 (09:00→17:39)
[2016-10-07] MEDS: PANTOPRAZOLE SOD 20 MG DELAYED RELEASE TAB PO SCH (10:11)
[2016-10-07] MEDS: NIFEdipine 60 MG SUSTAINED RELEASE TAB PO SCH (10:11)
[2016-10-07] MEDS: MULTIVITAMIN TAB PO SCH (10:11)
[2016-10-07] MEDS: NICOTINE 21 MG/24 HR PATCH TD SCH (10:11)
[2016-10-07] MEDS: THIAMINE HCL 100 MG TAB PO SCH (10:11)
[2016-10-07] MEDS: SODIUM CHLORIDE 0.9% FLUSH 5 ML FLUSH IV FLUSH SCH ×2 (10:12→20:49)
[2016-10-07] MEDS: CIPROFLOXACIN 250 MG TAB PO SCH (10:12)
--- NOTE | 2016-10-07 11:29 | HHI.PR ---
Subjective Remarks still with some pain to the LLQ. no nausea,vomiting or fever. BP still on high side. Objective Vitals Vital Signs Date Time Temp Pulse Resp B/P Pulse Ox O2 Delivery O2 Flow Rate FiO2 10/07/16 09:41 93 Nasal Cannula 2.00 10/07/16 08:12 95.9 82 20 156/82 92 10/07/16 04:00 96.4 83 20 178/79 98 10/07/16 01:40 170/84 10/06/16 23:30 97.2 95 22 181/112 96 10/06/16 22:08 94 Nasal Cannula 2.00 10/06/16 20:00 96.5 89 20 163/86 96 10/06/16 16:30 96.9 79 20 169/90 95 10/06/16 12:25 97.6 74 18 172/92 99 I/O 10/06/16 10/06/16 10/06/16 10/07/16 10/07/16 10/07/16 07:00 15:00 23:00 07:00 15:00 23:00 Intake Total 360 ml 94 ml 480 ml 240 ml Balance 360 ml 94 ml 480 ml 240 ml Intake Oral 360 ml 480 ml 240 ml IV Total 94 ml # Voids 1 1 1 # Bowel Movements 0 1 0 Result Diagram: 10/07/16 0505 10/07/16 0505 Imaging Last Impressions Abdomen X-Ray 10/05/16 042 Signed Impressions: Service Date/Time: Wednesday, October 05, 2016 05:38 - CONCLUSION: 1. Nonspecific bowel gas pattern without obstruction or free air. Multiple surgical clips overlie the pelvis. Moiz Valerio MD Gall Bladder Ultrasound 10/02/16 0000 Signed Impressions: Service Date/Time: Sunday, October 02, 2016 19:36 - CONCLUSION: 1. Hepatic and right renal cyst. 2. No evidence for cholelithiasis. 3. Adenomyomatosis the gallbladder. Kasi Alford MD Chest X-Ray 10/02/16 0000 Signed Impressions: Service Date/Time: Sunday, October 02, 2016 05:16 - CONCLUSION: Normal examination. Colby Green MD Aorta w/Runoff CTA 10/02/16 0000 Signed Impressions: Service Date/Time: Sunday, October 02, 2016 14:57 - CONCLUSION: 1. There is no evidence of dissection of the thoracic or abdominal aorta. Measurements for the thoracic aorta are given above. 2. 4.7 cm infrarenal abdominal aortic aneurysm. 3. Extensive vascular disease with high-grade stenosis involving both common iliac arteries. 4. Complete occlusion of the right superficial femoral with eventual reconstitution of the right popliteal and three-vessel runoff below the knee. 5. Complete occlusion of the proximal left superficial femoral with reconstitution of its mid segment. Distally, all 3 trifurcation vessels are patent. Bart Rodriguez MD Aorta CTA 10/02/16 0000 Signed Impressions: Service Date/Time: Sunday, October 02, 2016 14:57 - CONCLUSION: 1. Interval development of pneumoperitoneum, new finding from CT abdomen pelvis performed earlier in the day. This may be related to perforation of small bowel or possible perforated diverticulum from the transverse colon. I suspect if likely coming from small bowel as there are some mildly inflamed small bowel loops in the region. 2. Abdominal aortic aneurysm measuring up to 4.9 cm. The mesenteric vessels are patent. 3. Small abdominal ascites. 4. Multiple low-density hepatic and renal lesions, indeterminate but likely benign. 5. Ascites. 6. Bibasilar consolidation. Kasi Alford MD Abdomen/Pelvis CT 10/02/16 0000 Signed Impressions: Service Date/Time: Sunday, October 02, 2016 05:39 - CONCLUSION: 1. No definite evidence for bowel obstruction with postsurgical changes seen. 2. Aneurysmal dilatation of the abdominal aorta is noted up to 4.9 cm. 3. Bilateral renal cysts. 4. Moderate free fluid. 5. Diverticulosis without diverticulitis. Colby Green MD Objective Remarks GENERAL: This is a well-nourished, well-developed patient, in no apparent distress. CARDIOVASCULAR: Regular rate and regular rhythm without murmurs, gallops, or rubs. RESPIRATORY: Clear to auscultation. Breath sounds equal bilaterally. No wheezes , rales, or rhonchi. GASTROINTESTINAL: Abdomen soft, non-tender, nondistended. Normal, active bowel sounds MUSCULOSKELETAL: Extremities without clubbing, cyanosis, or edema. NEURO: Alert & Oriented x4 to person, place, time, situation. Moves all ext x4 Procedures none Medications and IVs Current Medications Hydromorphone HCl (Dilaudid Pf Inj) 1 mg ONCE ONCE IV PUSH Last administered on 10/02/16 05:03; Start 10/02/16 at 05:00; Stop 10/02/16 at 05:01; Status DC Ondansetron HCl 4 mg 4 mg ONCE ONCE IV PUSH Last administered on 10/02/16 05: 03; Start 10/02/16 at 05:00; Stop 10/02/16 at 05:01; Status DC Sodium Chloride (NS 1000 ml Inj) 1,000 ml @ 100 mls/hr Q10H IV Last administered on 10/02/16 05:02; Start 10/02/16 at 05:00; Stop 10/02/16 at 10:33 ; Status DC IV Flush (NS Flush) 2 ml UNSCH PRN IVF FLUSH AFTER USING IV ACCESS Last administered on 10/02/16 05:56; Start 10/02/16 at 05:00; Stop 10/02/16 at 07:03 ; Status DC Hydromorphone HCl (Dilaudid Pf Inj) 1 mg ONCE ONCE IV PUSH Last administered on 10/02/16 05:56; Start 10/02/16 at 06:00; Stop 10/02/16 at 06:01; Status DC Nitroglycerin (Nitroglycerin 2% Oint) 2 inch ONCE ONCE TOPICAL Last administered on 10/02/16 06:21; Start 10/02/16 at 06:30; Stop 10/02/16 at 06:31 ; Status DC IV Flush (NS Flush) 2 ml BID IVF Last administered on 10/02/16 08:31; Start at 09:00; Stop 10/02/16 at 10:41; Status DC IV Flush 2 ml 2 ml UNSCH PRN IVF FLUSH AFTER USING IV ACCESS Last administered on 10/02/16 07:16; Start 10/02/16 at 06:45; Stop 10/02/16 at 10:41; Status DC Piperacillin Sod/ Tazobactam Sod (Zosyn 4.5 Gm Premix) 100 ml @ 200 mls/hr ONCE ONCE IV Last administered on 10/02/16 07:16; Start 10/02/16 at 07:00; Stop 10/02/16 at 07:29; Status DC Hydromorphone HCl 1 mg 1 mg ONCE ONCE IV PUSH Last administered on 10/02/16 07:15; Start 10/02/16 at 07:00; Stop 10/02/16 at 07:01; Status DC Nicardipine HCl 25 mg/Sodium Chloride 260 ml @ 0 mls/hr TITRATE IV Last administered on 10/03/16 02:27; Start 10/02/16 at 06:45; Stop 10/03/16 at 06:09 ; Status DC Sodium Chloride (NS 1000 ml Inj) 1,000 ml @ 84 mls/hr [id number] IV Last administered on 10/02/16 07:16; Start 10/02/16 at 06:42; Stop 10/02/16 at 10:33 ; Status DC IV Flush (NS Flush) 2 ml UNSCH PRN IV FLUSH FLUSH AFTER USING IV ACCESS; Start 10/02/16 at 06:45; Stop 10/02/16 at 07:03; Status DC IV Flush (NS Flush) 2 ml BID IV FLUSH ; Start 10/02/16 at 09:00; Stop 10/02/16 at 09:00; Status DC Acetaminophen (Tylenol) 650 mg Q6H PRN PO PAIN 1-10 AND/OR FEVER >101F; Start 10/02/16 at 06:45 Acetaminophen/ Hydrocodone Bitart (K[place]man 5-325 Mg) 1 tab Q4H PRN PO PAIN SCALE 1 TO 5 Last administered on 10/07/16 04:34; Start 10/02/16 at 06:45 Morphine Sulfate (Morphine Inj) 2 mg Q2H PRN IV PAIN SCALE 6 TO 10; Start 10/02 at 06:45; Stop 10/02/16 at 10:33; Status DC Pantoprazole Sodium (Protonix Inj) 40 mg DAILY IV Last administered on 08:31; Start 10/02/16 at 09:00; Stop 10/02/16 at 10:42; Status DC Artificial Tears (Tears Naturale Opth Soln) 1 drop TID EACH EYE Last administered on 10/02/16 10:01; Start 10/02/16 at 09:00 Ondansetron HCl (Zofran Inj) 4 mg Q6H PRN IV NAUSEA OR VOMITING; Start at 06:45; Stop 10/02/16 at 10:42; Status DC Albuterol/ Ipratropium (Duoneb Neb) 1 ampule Q2HR NEB PRN INH WHEEZING; Start 10/02/16 at 06:45; Stop 10/02/16 at 10:40; Status DC Miscellaneous Information 1 Q361D XX ; Start 10/02/16 at 06:45; Stop 10/02/16 at 10:41; Status DC Chlorhexidine Gluconate (Chlorhexidine 2% Cloth) 3 pack Taper DAILY@04 TOP ; Start 10/03/16 at 04:00; Stop 10/03/16 at 04:00; Status DC Chlorhexidine Gluconate 3 pack 3 pack UNSCH PRN TOP HYGIENIC CARE; Start at 06:45; Stop 10/02/16 at 10:41; Status DC Ceftriaxone Sodium/Sodium Chloride (Rocephin Inj/NS Inj) 100 ml @ 200 mls/hr Q24H IV Last administered on 10/02/16 07:43; Start 10/02/16 at 07:00; Stop at 16:52; Status DC Hydromorphone HCl (Dilaudid Pf Inj) 1 mg NOW ONCE IV Last administered on 10/02 10:39; Start 10/02/16 at 10:30; Stop 10/02/16 at 10:31; Status DC Magnesium Oxide 800 mg 800 mg UNSCH PRN PO For Magnesium 1.2 - 1.6 mg/dL; Start 10/02/16 at 10:30; Stop 10/04/16 at 07:50; Status DC Magnesium Sulfate 4 gm/Sodium Chloride 100 ml @ 50 mls/hr UNSCH PRN IV For Magnesium 0.9 - 1.1 mg/dL; Start 10/02/16 at 10:30; Stop 10/04/16 at 07:50; Status DC Magnesium Sulfate 2 gm/Sodium Chloride 100 ml @ 50 mls/hr UNSCH PRN IV For Magnesium 1.2 - 1.6 mg/dL Last administered on 10/02/16 12:42; Start 10/02/16 at 10:30; Stop 10/04/16 at 07:50; Status DC Potassium Chloride 100 ml @ 50 mls/hr Q2H PRN IV For Potassium 2.8 - 3.2 mEq/L ; Start 10/02/16 at 10:30; Stop 10/04/16 at 07:50; Status DC Potassium Chloride 100 ml @ 50 mls/hr Q2H PRN IV For Potassium 3.3 - 3.5 mEq/L ; Start 10/02/16 at 10:30; Stop 10/04/16 at 07:50; Status DC Potassium Chloride 100 ml @ 50 mls/hr Q2H PRN IV For Potassium 2.8 - 3.2 mEq/L ; Start 10/02/16 at 10:30; Stop 10/04/16 at 07:51; Status DC Potassium Chloride (KCl 40 Meq Premix Inj) 100 ml @ 25 mls/hr UNSCH PRN IV For Potassium 3.3 - 3.5 mEq/L; Start 10/02/16 at 10:30; Stop 10/04/16 at 07:51; Status DC Potassium Chloride (KCl 40 Meq/30 ml Liq) 40 meq UNSCH PRN PO/TUBE For Potassium 3.3 - 3.5 mEq/L; Start 10/02/16 at 10:30; Stop 10/04/16 at 07:51; Status DC Potassium Chloride (KCl 40 Meq/30 ml Liq) 40 meq UNSCH PRN PO/TUBE SEE LABEL COMMENTS; Start 10/02/16 at 10:30; Stop 10/04/16 at 07:51; Status DC Potassium Phosphate (K-Phos) 2,000 mg Q4H PRN PO For Phosphorus < 2.5 mg/dL; Start 10/02/16 at 10:30; Stop 10/04/16 at 07:50; Status DC Potassium Phosphate 2000 mg 2,000 mg UNSCH PRN PO/TUBE SEE LABEL COMMENTS; Start 10/02/16 at 10:30; Stop 10/04/16 at 07:51; Status DC Potassium Phosphate 30 mmol/ Sodium Chloride 260 ml @ 42 mls/hr UNSCH PRN IV SEE LABEL COMMENTS; Start 10/02/16 at 10:30; Stop 10/04/16 at 07:51; Status DC Sodium Phosphate/ Sodium Chloride (Sodium Phosphate Inj/NS 250 ml Inj) 250 ml @ 42 mls/hr UNSCH PRN IV For Phosphorus < 2.5 mg/dL; Start 10/02/16 at 10:30; Stop 10/04/16 at 07:51; Status DC Dextrose (D50w (Vial) Inj) 25 ml UNSCH PRN IV PUSH HYPOGLYCEMIA-SEE COMMENTS; Start 10/02/16 at 10:30; Stop 10/03/16 at 19:01; Status DC Insulin Human Regular (NovoLIN R SUPPLEMENTAL SCALE) 1 Q6HR SQ ; Start 10/02/16 at 12:00; Stop 10/03/16 at 19:01; Status DC Albuterol/ Ipratropium (Duoneb Neb) 1 ampule Q6HR NEB INH Last administered on 10/06/16 11:44; Start 10/02/16 at 16:00; Stop 10/06/16 at 16:00; Status DC Albuterol/ Ipratropium 1 ampule 1 ampule Q2HR NEB PRN INH WHEEZING Last administered on 10/06/16 22:06; Start 10/02/16 at 10:30 Sodium Chloride (NS 1000 ml Inj) 1,000 ml @ 120 mls/hr Q8H20M IV Last administered on 10/04/16 10:26; Start 10/02/16 at 10:25; Stop 10/05/16 at 13:01 ; Status DC IV Flush (NS Flush) 2 ml UNSCH PRN IV FLUSH FLUSH AFTER USING IV ACCESS; Start 10/02/16 at 10:30 IV Flush (NS Flush) 2 ml BID IV FLUSH Last administered on 10/07/16 10:12; Start 10/02/16 at 21:00 Hydromorphone HCl (Dilaudid Pf Inj) 1 mg Q4H PRN IV PAIN SCALE 6 TO 10 Last administered on 10/07/16 10:12; Start 10/02/16 at 10:30 Pantoprazole Sodium (Protonix Inj) 40 mg DAILY IV Last administered on 10:27; Start 10/03/16 at 09:00; Stop 10/03/16 at 10:54; Status DC Ondansetron HCl (Zofran Inj) 4 mg Q6H PRN IV NAUSEA OR VOMITING; Start at 10:30 Miscellaneous Information 1 Q361D XX ; Start 10/02/16 at 10:30 Chlorhexidine Gluconate (Chlorhexidine 2% Cloth) 3 pack Taper DAILY@04 TOP Last administered on 10/03/16 04:00; Start 10/03/16 at 04:00; Stop 09/29/17 at 03:59 Chlorhexidine Gluconate 3 pack 3 pack UNSCH PRN TOP HYGIENIC CARE; Start at 10:30 Thiamine HCl/ Sodium Chloride (Thiamine Inj/NS Inj) 101 ml @ 101 mls/hr Q24H IV Last administered on 10/04/16 02:12; Start 10/03/16 at 02:00; Stop at 02:59; Status DC Thiamine HCl 100 mg 100 mg DAILY PO Last administered on 10/07/16 10:11; Start 10/06/16 at 09:00 Multivitamins/ Thiamine HCl/ Folic Acid/Sodium Chloride (Mvi-12 Inj/ Thiamine Inj/ Folvite Inj/08/08 NS 500 ml Inj) 511.2 ml @ 125 mls/hr ONCE ONCE IV Last administered on 10/02/16 12:42; Start 10/02/16 at 12:00; Stop 10/02/16 at 16:05 ; Status DC Multivitamins (Theragran) 1 tab DAILY PO Last administered on 10/07/16 10:11; Start 10/03/16 at 09:00 Iodixanol 100 ml 100 ml STK-MED ONCE IV Last administered on 10/02/16 15:12; Start 10/02/16 at 15:12; Stop 10/02/16 at 15:13; Status DC Piperacillin Sod/ Tazobactam Sod (Zosyn 2.25 Gm Premix) 50 ml @ 200 mls/hr Q6H IV Last administered on 10/04/16 10:26; Start 10/02/16 at 17:00; Stop at 13:03; Status DC Nicotine (Habitrol 21 Mg Patch.24 Hr) 1 patch DAILY TD Last administered on 10/07 10:11; Start 10/02/16 at 17:00 Amlodipine Besylate (Norvasc) 10 mg DAILY PO Last administered on 10/05/16 08: 46; Start 10/02/16 at 16:49; Stop 10/05/16 at 13:02; Status DC Carvedilol (Coreg) 6.25 mg Q12HR PO ; Start 10/02/16 at 16:49; Stop 10/02/16 at 16:55; Status DC Labetalol HCl (Trandate Inj) 20 mg Q1H PRN IV PUSH sbp > 160; Start 10/02/16 at 17:00 Hydralazine HCl (Apresoline Inj) 10 mg Q30M PRN IV PUSH sbp > 160 Last administered on 10/06/16 19:44; Start 10/02/16 at 17:00; Stop 10/07/16 at 00:04; Status DC Carvedilol (Coreg) 6.25 mg Q12H PO Last administered on 10/03/16 05:37; Start 10/02/16 at 18:00; Stop 10/03/16 at 06:10; Status DC Carvedilol (Coreg) 12.5 mg Q12H PO Last administered on 10/07/16 06:04; Start 10/03/16 at 18:00 Pantoprazole Sodium (Protonix) 20 mg DAILY PO Last administered on 10/07/16 10: 11; Start 10/04/16 at 09:00 Guaifenesin 200 mg 200 mg Q6H PRN PO COUGH Last administered on 10/03/16 17:50 ; Start 10/03/16 at 17:15 Piperacillin Sod/ Tazobactam Sod (Zosyn 4.5 Gm Premix) 100 ml @ 200 mls/hr Q6H IV Last administered on 10/05/16 10:32; Start 10/04/16 at 16:00; Stop 10/05/16 at 13:06; Status DC Nifedipine (Procardia) 30 mg ONCE ONCE PO Last administered on 10/04/16 16:19 ; Start 10/04/16 at 15:45; Stop 10/04/16 at 15:46; Status DC Alprazolam (Xanax) 0.25 mg Q8H PRN PO ANXIETY Last administered on 10/07/16 04: 34; Start 10/05/16 at 13:00 Nifedipine 60 mg 60 mg DAILY PO Last administered on 10/07/16 10:11; Start 10/05 at 13:00 Sodium Chloride (NS 1000 ml Inj) 1,000 ml @ 70 mls/hr [id number] ONCE IV Last administered on 10/06/16 13:14; Start 10/06/16 at 11:00; Stop 10/07/16 at 01:17; Status DC Nifedipine (Procardia Xl) 30 mg ONCE ONCE PO Last administered on 10/06/16 17: 51; Start 10/06/16 at 18:00; Stop 10/06/16 at 18:01; Status DC Ciprofloxacin (Cipro) 250 mg Q12H PO Last administered on 10/07/16 10:12; Start 10/06/16 at 12:00 Metronidazole (Flagyl) 500 mg Q8HR PO Last administered on 10/07/16 06:03; Start 10/06/16 at 14:00 Clonidine (Catapres) 0.1 mg Q6H PRN PO SBP>160, DBP>90 Last administered on 10/07 00:57; Start 10/07/16 at 00:15 A/P Assessment and Plan A/p 1. Severe Abdominal pain- has improved CT of the abdomen with pneumoperitoneum. general surgery evaluation appreciated and recommended conservative treatment. diet has been advanced. continue pain control. will start on po Abx. 2. Hypertensive Urgency- still with uncontrolled BP. - continue coreg. -continue procardia XL; will give extra dose of Procardia today; will consider increasing procardia to 90 mg daily. -will monitor and adjust the regimen as needed. -close f/u with pcp and this was d/w the patient. 3. Acute on Chronic Renal failure- with increase in Creatinine- improved on IV hydration. -continue IV fluid -will monitor renal function. 4. Etoh Abuse -- Thiamine, MVI -- watch for withdraw 5. COPD -- nebs q6h and q2h prn -- I.S. to bedside. 6- AAA/ PVD vascular surgery evaluation appreciated and recommended conservative treatment. dvt prophy: SCDs. gi prophylaxis: protonix. Discharge Planning dc home in am if BP better controlled and renal function continues to improve. d/w the patient . Hollis Carty MD Oct 07, 2016 11:29
[2016-10-07] MEDS ORDERED: SODIUM CHLOR 0.9% 1000 ML INJ 1,000 ML IV ONE (11:30)
[2016-10-07] MEDS ORDERED: NIFEdipine 30 MG SUSTAINED RELEASE TAB PO ONE (12:00)
[2016-10-07] MEDS ORDERED: SIMETHICONE 80 MG CHEWABLE TAB CHEW PRN (14:30)
--- NOTE | 2016-10-07 15:25 | HHI.PR ---
Subjective Subjective Notes DAILY PROGRESS NOTE FOR SURGICAL ATTENDING, DR. MOIZ MORALES Sitting on the side of the bed feels like a "basketball in his stomach" Objective Vitals/I&O Vital Signs Date Time Temp Pulse Resp B/P Pulse Ox O2 Delivery O2 Flow Rate FiO2 10/07/16 12:14 98.4 85 18 159/94 92 10/07/16 10:15 Nasal Cannula 2.00 10/06/16 10:06 21 Labs Laboratory Tests Test 10/07/16 05:05 White Blood Count 8.8 Red Blood Count 5.28 Hemoglobin 14.4 Hematocrit 42.8 Mean Corpuscular Volume 81.0 Mean Corpuscular Hemoglobin 27.2 Mean Corpuscular Hemoglobin 33.6 Concent Red Cell Distribution Width 14.8 Platelet Count 228 Mean Platelet Volume 8.9 Sodium Level 137 Potassium Level 3.8 Chloride Level 104 Carbon Dioxide Level 24.4 Anion Gap 9 Blood Urea Nitrogen 18 Creatinine 1.79 Estimat Glomerular Filtration 39 Rate Random Glucose 118 Calcium Level 9.0 Radiology Last Impressions Abdomen X-Ray 3/3/17 0000 Signed Impressions: Service Date/Time: Friday, October 07, 2016 15:44 - CONCLUSION: Unremarkable abdomen. Postsurgical changes in the pelvis. Kasi Alford MD Gall Bladder Ultrasound 10/02/16 Signed Impressions: Service Date/Time: Sunday, October 02, 2016 19:36 - CONCLUSION: 1. Hepatic and right renal cyst. 2. No evidence for cholelithiasis. 3. Adenomyomatosis the gallbladder. Kasi Alford MD Chest X-Ray 10/02/16 Signed Impressions: Service Date/Time: Sunday, October 02, 2016 05:16 - CONCLUSION: Normal examination. Colby Green MD Aorta w/Runoff CTA 10/02/16 Signed Impressions: Service Date/Time: Sunday, October 02, 2016 14:57 - CONCLUSION: 1. There is no evidence of dissection of the thoracic or abdominal aorta. Measurements for the thoracic aorta are given above. 2. 4.7 cm infrarenal abdominal aortic aneurysm. 3. Extensive vascular disease with high-grade stenosis involving both common iliac arteries. 4. Complete occlusion of the right superficial femoral with eventual reconstitution of the right popliteal and three-vessel runoff below the knee. 5. Complete occlusion of the proximal left superficial femoral with reconstitution of its mid segment. Distally, all 3 trifurcation vessels are patent. Bart Rodriguez MD Aorta CTA 10/02/16 Signed Impressions: Service Date/Time: Sunday, October 02, 2016 14:57 - CONCLUSION: 1. Interval development of pneumoperitoneum, new finding from CT abdomen pelvis performed earlier in the day. This may be related to perforation of small bowel or possible perforated diverticulum from the transverse colon. I suspect if likely coming from small bowel as there are some mildly inflamed small bowel loops in the region. 2. Abdominal aortic aneurysm measuring up to 4.9 cm. The mesenteric vessels are patent. 3. Small abdominal ascites. 4. Multiple low-density hepatic and renal lesions, indeterminate but likely benign. 5. Ascites. 6. Bibasilar consolidation. Kasi Alford MD Abdomen/Pelvis CT 10/02/16 Signed Impressions: Service Date/Time: Sunday, October 02, 2016 05:39 - CONCLUSION: 1. No definite evidence for bowel obstruction with postsurgical changes seen. 2. Aneurysmal dilatation of the abdominal aorta is noted up to 4.9 cm. 3. Bilateral renal cysts. 4. Moderate free fluid. 5. Diverticulosis without diverticulitis. Colby Green MD Cardiovascular: Regular Lungs: Clear Abdomen: Other (LLQ pain; distedned ) Extremities: No edema A/P Problem List: (1) AAA (abdominal aortic aneurysm) (2) History of bladder cancer (3) Acute abdominal pain Plan: Pain has subsided however he has little bit of soreness in the left lower quadrant Assessment and Plan 61 year old male with abdominal pain and free air visualized on CTA -Abdominal distention---KUB ordered -Cipro/Flagyl -Advance to regular diet -Non op AAA ---management per Dr. Salima LAWSON managing BP Attending Statement NOTE FOR SURGICAL ATTENDING, DR. MOIZ MORALES I agree with above assessment and plan. The following services were provided during this hospital visit: Chart data review, vital sign assessments/reviewing monitor data Review of consultations notes if present. Medication orders/review and/or management Ordering and/or reviewing lab tests Ordering and/or interpreting/reviewing x-rays and/or diagnostic studies Care of the patient and discussion of the patient with the care team Documentation time To help prompt me to consider important information that might be impacting today's encounter and assessment, information from prior notes written by myself or my colleagues may have been "brought forward/copy and pasted" into today's note. Problem Qualifiers (1) AAA (abdominal aortic aneurysm): Qualified Code: I71.4 - Abdominal aortic aneurysm (AAA) without rupture Shelbie Carbajal Oct 07, 2016 15:25 Moiz Morales MD Oct 10, 2016 09:50
--- NOTE | 2016-10-07 16:20 | RADRPT ---
EXAM DATE/TIME: 10/07/2016 15:44 [facility] COMPARISON: ABDOMEN KUB ONLY, October 05, 2016, 5:38. INDICATIONS : Distention. MEDICAL HISTORY : None. SURGICAL HISTORY : Prostatectomy. bladder removed 10 years ago. bladder made from intestines ENCOUNTER: Initial ACUITY: 4 - 6 days PAIN SCORE: 10/10 LOCATION: Bilateral abdomen FINDINGS: Supine view of the abdomen was performed. The abdominal bowel gas pattern is normal. No abnormal ma sses, calcifications, or organomegaly is seen. The osseous structures are unremarkable. Surgical cli ps in the pelvis. CONCLUSION: Unremarkable abdomen. Postsurgical changes in the pelvis. Kasi Alford MD on October 07, 2016 at 16:16 Board Certified Radiologist. This report was verified electronically.
[2016-10-07] MEDS: POLYETHYLENE GLYCOL 17 GM PKG PO SCH (20:15)
[2016-10-07 20:49] LABS: ALKALINE PHOSPHATASE 52 U/L (45-117); ALT (GPT) 23 U/L (12-78); ANION GAP 10 MEQ/L (5-15); AST (GOT) 13 U/L (15-37); BICARBONATE 23.6 MEQ/L (21.0-32.0); BLOOD UREA NITROGEN 28 MG/DL (7-18); CHLORIDE 101 MEQ/L (98-107); GLOMERULAR FILTRATION RATE 17 ML/MIN (>89); POTASSIUM 3.7 MEQ/L (3.5-5.1); SODIUM (NA) 135 MEQ/L (136-145); TOTAL BILIRUBIN ADULT 0.6 MG/DL (0.2-1.0)
[2016-10-07 21:19] LABS: BASOPHIL % 0.5 % (0.0-2.0); EOSINOPHIL # 0.4 TH/MM3 (0-0.4); EOSINOPHIL % 4.5 % (0.0-4.0); HEMATOCRIT 41.4 % (39.0-51.0); HEMO FLAGS DIFF FINAL; LYMPH % 14.4 % (9.0-44.0); LYMPHOCYTE # 1.2 TH/MM3 (1.0-4.8); MEAN CELL VOLUME 81.9 FL (80.0-100.0); MEAN CORPUSCULAR HEMOGLOBIN 26.9 PG (27.0-34.0); MEAN CORPUSCULAR HGB CONC 32.9 % (32.0-36.0); MONO % 10.4 % (0.0-8.0); NEUT % 70.2 % (16.0-70.0); PLATELET COUNT 217 TH/MM3 (150-450); RED BLOOD COUNT 5.06 MIL/MM3 (4.50-5.90); RED CELL DISTRIBUTION WIDTH 14.5 % (11.6-17.2); WHITE BLOOD COUNT 8.6 TH/MM3 (4.0-11.0)
[2016-10-08] MEDS: CIPROFLOXACIN 250 MG TAB PO SCH ×2 (00:40→10:36)
[2016-10-08] MEDS: ACETAMINOPHEN/HYDROcodone 325 MG/5 MG TAB PO PRN (00:41)
[2016-10-08 00:45] VITALS: BP 178/96; PULSE 81; RESP 22; TEMP 98; O2SAT 95
[2016-10-08] MEDS: cloNIDine HCL 0.1 MG TAB PO PRN (00:47)
[2016-10-08 04:25] VITALS: BP 173/88; PULSE 84; RESP 20; TEMP 97.4; O2SAT 92
[2016-10-08] MEDS: metroNIDAZOLE 500 MG TAB PO SCH (04:38)
[2016-10-08] MEDS: CARVEDILOL 6.25 MG TAB PO SCH (04:38)
[2016-10-08 07:21] LABS: HEMATOCRIT 40.3 % (39.0-51.0); MEAN CELL VOLUME 80.9 FL (80.0-100.0); MEAN CORPUSCULAR HGB CONC 33.4 % (32.0-36.0); PLATELET COUNT 205 TH/MM3 (150-450); RED BLOOD COUNT 4.98 MIL/MM3 (4.50-5.90); RED CELL DISTRIBUTION WIDTH 14.3 % (11.6-17.2); REVIEW FLAG FINAL
[2016-10-08 07:34] LABS: POTASSIUM 3.8 MEQ/L (3.5-5.1)
[2016-10-08 07:47] VITALS: BP 155/74; PULSE 83; RESP 18; TEMP 96.5; O2SAT 94
--- NOTE | 2016-10-08 10:16 | HHI.PR ---
Subjective Subjective Notes feels much better, tolerated coffee and crackers this morning, had BM and has no abdominal pain. Feels better since oral abx started. Wants to go home. Objective Vitals/I&O Vital Signs Date Time Temp Pulse Resp B/P Pulse Ox O2 Delivery O2 Flow Rate FiO2 10/08/16 07:47 96.5 83 18 155/74 94 10/07/16 10:15 Nasal Cannula 2.00 10/06/16 10:06 21 Labs Laboratory Tests Test 10/07/16 10/08/16 19:28 06:20 White Blood Count 8.6 8.0 Red Blood Count 5.06 4.98 Hemoglobin 13.6 13.5 Hematocrit 41.4 40.3 Mean Corpuscular Volume 81.9 80.9 Mean Corpuscular Hemoglobin 26.9 27.0 Mean Corpuscular Hemoglobin 32.9 33.4 Concent Red Cell Distribution Width 14.5 14.3 Platelet Count 217 205 Mean Platelet Volume 9.3 9.1 Neutrophils (%) (Auto) 70.2 Lymphocytes (%) (Auto) 14.4 Monocytes (%) (Auto) 10.4 Eosinophils (%) (Auto) 4.5 Basophils (%) (Auto) 0.5 Neutrophils # (Auto) 6.0 Lymphocytes # (Auto) 1.2 Monocytes # (Auto) 0.9 Eosinophils # (Auto) 0.4 Basophils # (Auto) 0.0 CBC Comment DIFF FINAL Differential Comment Sodium Level 135 141 Potassium Level 3.7 3.8 Chloride Level 101 109 Carbon Dioxide Level 23.6 22.0 Anion Gap 10 10 Blood Urea Nitrogen 28 17 Creatinine 3.61 1.03 Estimat Glomerular Filtration 17 74 Rate Random Glucose 113 101 Calcium Level 8.8 8.8 Total Bilirubin 0.6 Aspartate Amino Transf 13 (AST/SGOT) Alanine Aminotransferase 23 (ALT/SGPT) Alkaline Phosphatase 52 Total Protein 6.6 Albumin 2.9 Radiology Last Impressions Abdomen X-Ray 10/05/16 0421 Signed Impressions: Service Date/Time: Wednesday, October 05, 2016 05:38 - CONCLUSION: 1. Nonspecific bowel gas pattern without obstruction or free air. Multiple surgical clips overlie the pelvis. Moiz Valerio MD Gall Bladder Ultrasound 10/02/16 0000 Signed Impressions: Service Date/Time: Sunday, October 02, 2016 19:36 - CONCLUSION: 1. Hepatic and right renal cyst. 2. No evidence for cholelithiasis. 3. Adenomyomatosis the gallbladder. Kasi Alford MD Chest X-Ray 10/02/16 Signed Impressions: Service Date/Time: Sunday, October 02, 2016 05:16 - CONCLUSION: Normal examination. Colby Green MD Aorta w/Runoff CTA 10/02/16 Signed Impressions: Service Date/Time: Sunday, October 02, 2016 14:57 - CONCLUSION: 1. There is no evidence of dissection of the thoracic or abdominal aorta. Measurements for the thoracic aorta are given above. 2. 4.7 cm infrarenal abdominal aortic aneurysm. 3. Extensive vascular disease with high-grade stenosis involving both common iliac arteries. 4. Complete occlusion of the right superficial femoral with eventual reconstitution of the right popliteal and three-vessel runoff below the knee. 5. Complete occlusion of the proximal left superficial femoral with reconstitution of its mid segment. Distally, all 3 trifurcation vessels are patent. Bart Rodriguez MD Aorta CTA 10/02/16 Signed Impressions: Service Date/Time: Sunday, October 02, 2016 14:57 - CONCLUSION: 1. Interval development of pneumoperitoneum, new finding from CT abdomen pelvis performed earlier in the day. This may be related to perforation of small bowel or possible perforated diverticulum from the transverse colon. I suspect if likely coming from small bowel as there are some mildly inflamed small bowel loops in the region. 2. Abdominal aortic aneurysm measuring up to 4.9 cm. The mesenteric vessels are patent. 3. Small abdominal ascites. 4. Multiple low-density hepatic and renal lesions, indeterminate but likely benign. 5. Ascites. 6. Bibasilar consolidation. Kasi Alford MD Abdomen/Pelvis CT 10/02/16 Signed Impressions: Service Date/Time: Sunday, October 02, 2016 05:39 - CONCLUSION: 1. No definite evidence for bowel obstruction with postsurgical changes seen. 2. Aneurysmal dilatation of the abdominal aorta is noted up to 4.9 cm. 3. Bilateral renal cysts. 4. Moderate free fluid. 5. Diverticulosis without diverticulitis. Colby Green MD Abdomen: Non-distended, Non-tender, Other (healed scars, minor incisional hernia without incarceration. ) A/P Problem List: (1) AAA (abdominal aortic aneurysm) (2) History of bladder cancer (3) Acute abdominal pain Assessment and Plan Resolved abdominal pain. OK for DC from surgery standpoint when eating and having no pain(now!) Follow up as needed with Dr Morales. Rafiq Pandey MD Oct 08, 2016 10:16
[2016-10-08] MEDS: POLYETHYLENE GLYCOL 17 GM PKG PO SCH (10:34)
[2016-10-08] MEDS: NICOTINE 21 MG/24 HR PATCH TD SCH (10:35)
[2016-10-08] MEDS: MULTIVITAMIN TAB PO SCH (10:35)
[2016-10-08] MEDS: THIAMINE HCL 100 MG TAB PO SCH (10:35)
[2016-10-08] MEDS: PANTOPRAZOLE SOD 20 MG DELAYED RELEASE TAB PO SCH (10:36)
[2016-10-08] MEDS: ALPRAZolam 0.25 MG TAB PO PRN (10:36)
[2016-10-08] MEDS: NIFEdipine 60 MG SUSTAINED RELEASE TAB PO SCH (10:37)
--- NOTE | 2016-10-08 10:40 | HHI.PR ---
Subjective Remarks looks and feels much better today. abdominal pain has almost resolved. no nausea or vomiting. wants to go home today. d/w the RN. Objective Vitals Vital Signs Date Time Temp Pulse Resp B/P Pulse Ox O2 Delivery O2 Flow Rate FiO2 10/08/16 07:47 96.5 83 18 155/74 94 10/08/16 04:25 97.4 84 20 173/88 92 10/08/16 00:45 98.0 81 22 178/96 95 10/07/16 20:00 97.2 89 20 149/87 95 10/07/16 16:22 96.9 89 20 161/89 91 10/07/16 12:14 98.4 85 18 159/94 92 I/O 10/07/16 10/07/16 10/07/16 10/08/16 10/08/16 10/08/16 07:00 15:00 23:00 07:00 15:00 23:00 Intake Total 240 ml 1110 ml 240 ml Balance 240 ml 1110 ml 240 ml Intake Oral 240 ml 480 ml 240 ml IV Total 630 ml # Voids 1 2 1 # Bowel Movements 0 0 2 Result Diagram: 10/08/16 0620 10/08/16 0620 Imaging Last Impressions Abdomen X-Ray 10/07/16 0000 Signed Impressions: Service Date/Time: Friday, October 07, 2016 15:44 - CONCLUSION: Unremarkable abdomen. Postsurgical changes in the pelvis. Kasi Alford MD Gall Bladder Ultrasound 10/02/16 0000 Signed Impressions: Service Date/Time: Sunday, October 02, 2016 19:36 - CONCLUSION: 1. Hepatic and right renal cyst. 2. No evidence for cholelithiasis. 3. Adenomyomatosis the gallbladder. Kasi Alford MD Chest X-Ray 10/02/16 0000 Signed Impressions: Service Date/Time: Sunday, October 02, 2016 05:16 - CONCLUSION: Normal examination. Colby Green MD Aorta w/Runoff CTA 10/02/16 0000 Signed Impressions: Service Date/Time: Sunday, October 02, 2016 14:57 - CONCLUSION: 1. There is no evidence of dissection of the thoracic or abdominal aorta. Measurements for the thoracic aorta are given above. 2. 4.7 cm infrarenal abdominal aortic aneurysm. 3. Extensive vascular disease with high-grade stenosis involving both common iliac arteries. 4. Complete occlusion of the right superficial femoral with eventual reconstitution of the right popliteal and three-vessel runoff below the knee. 5. Complete occlusion of the proximal left superficial femoral with reconstitution of its mid segment. Distally, all 3 trifurcation vessels are patent. Bart Rodriguez MD Aorta CTA 10/02/16 0000 Signed Impressions: Service Date/Time: Sunday, October 02, 2016 14:57 - CONCLUSION: 1. Interval development of pneumoperitoneum, new finding from CT abdomen pelvis performed earlier in the day. This may be related to perforation of small bowel or possible perforated diverticulum from the transverse colon. I suspect if likely coming from small bowel as there are some mildly inflamed small bowel loops in the region. 2. Abdominal aortic aneurysm measuring up to 4.9 cm. The mesenteric vessels are patent. 3. Small abdominal ascites. 4. Multiple low-density hepatic and renal lesions, indeterminate but likely benign. 5. Ascites. 6. Bibasilar consolidation. Kasi Alford MD Abdomen/Pelvis CT 10/02/16 0000 Signed Impressions: Service Date/Time: Sunday, October 02, 2016 05:39 - CONCLUSION: 1. No definite evidence for bowel obstruction with postsurgical changes seen. 2. Aneurysmal dilatation of the abdominal aorta is noted up to 4.9 cm. 3. Bilateral renal cysts. 4. Moderate free fluid. 5. Diverticulosis without diverticulitis. Colby Green MD Objective Remarks GENERAL: This is a well-nourished, well-developed patient, in no apparent distress. CARDIOVASCULAR: Regular rate and regular rhythm without murmurs, gallops, or rubs. RESPIRATORY: Clear to auscultation. Breath sounds equal bilaterally. No wheezes , rales, or rhonchi. GASTROINTESTINAL: Abdomen soft, non-tender, nondistended. Normal, active bowel sounds MUSCULOSKELETAL: Extremities without clubbing, cyanosis, or edema. NEURO: Alert & Oriented x4 to person, place, time, situation. Moves all ext x4 Procedures none Medications and IVs Current Medications Hydromorphone HCl (Dilaudid Pf Inj) 1 mg ONCE ONCE IV PUSH Last administered on 10/02/16t 05:03; Start 10/02/16 at 05:00; Stop 10/02/16 at 05:01; Status DC Ondansetron HCl 4 mg 4 mg ONCE ONCE IV PUSH Last administered on 10/02/16 05: 03; Start 10/02/16 at 05:00; Stop 10/02/16 at 05:01; Status DC Sodium Chloride (NS 1000 ml Inj) 1,000 ml @ 100 mls/hr Q10H IV Last administered on 10/02/16 05:02; Start 10/02/16 at 05:00; Stop 10/02/16 at 10:33 ; Status DC IV Flush (NS Flush) 2 ml UNSCH PRN IVF FLUSH AFTER USING IV ACCESS Last administered on 10/02/16 05:56; Start 10/02/16 at 05:00; Stop 10/02/16 at 07:03 ; Status DC Hydromorphone HCl (Dilaudid Pf Inj) 1 mg ONCE ONCE IV PUSH Last administered on 10/02/16 05:56; Start 10/02/16 at 06:00; Stop 10/02/16 at 06:01; Status DC Nitroglycerin (Nitroglycerin 2% Oint) 2 inch ONCE ONCE TOPICAL Last administered on 10/02/16 06:21; Start 10/02/16 at 06:30; Stop 10/02/16 at 06:31 ; Status DC IV Flush (NS Flush) 2 ml BID IVF Last administered on 10/02/16 08:31; Start at 09:00; Stop 10/02/16 at 10:41; Status DC IV Flush 2 ml 2 ml UNSCH PRN IVF FLUSH AFTER USING IV ACCESS Last administered on 10/02/16 07:16; Start 10/02/16 at 06:45; Stop 10/02/16 at 10:41; Status DC Piperacillin Sod/ Tazobactam Sod (Zosyn 4.5 Gm Premix) 100 ml @ 200 mls/hr ONCE ONCE IV Last administered on 10/02/16 07:16; Start 10/02/16 at 07:00; Stop 10/02/16 at 07:29; Status DC Hydromorphone HCl 1 mg 1 mg ONCE ONCE IV PUSH Last administered on 10/02/16 07:15; Start 10/02/16 at 07:00; Stop 10/02/16 at 07:01; Status DC Nicardipine HCl 25 mg/Sodium Chloride 260 ml @ 0 mls/hr TITRATE IV Last administered on 10/03/16 02:27; Start 10/02/16 at 06:45; Stop 10/03/16 at 06:09 ; Status DC Sodium Chloride (NS 1000 ml Inj) 1,000 ml @ 84 mls/hr [id number] IV Last administered on 10/02/16 07:16; Start 10/02/16 at 06:42; Stop 10/02/16 at 10:33 ; Status DC IV Flush (NS Flush) 2 ml UNSCH PRN IV FLUSH FLUSH AFTER USING IV ACCESS; Start 10/02/16 at 06:45; Stop 10/02/16 at 07:03; Status DC IV Flush (NS Flush) 2 ml BID IV FLUSH ; Start 10/02/16 at 09:00; Stop 10/02/16 at 09:00; Status DC Acetaminophen (Tylenol) 650 mg Q6H PRN PO PAIN 1-10 AND/OR FEVER >101F; Start 10/02/16 at 06:45 Acetaminophen/ Hydrocodone Bitart ([place] 5-325 Mg) 1 tab Q4H PRN PO PAIN SCALE 1 TO 5 Last administered on 10/07/16 04:34; Start 10/02/16 at 06:45 Morphine Sulfate (Morphine Inj) 2 mg Q2H PRN IV PAIN SCALE 6 TO 10; Start 10/02 at 06:45; Stop 10/02/16 at 10:33; Status DC Pantoprazole Sodium (Protonix Inj) 40 mg DAILY IV Last administered on 08:31; Start 10/02/16 at 09:00; Stop 10/02/16 at 10:42; Status DC Artificial Tears (Tears Naturale Opth Soln) 1 drop TID EACH EYE Last administered on 10/02/16 10:01; Start 10/02/16 at 09:00 Ondansetron HCl (Zofran Inj) 4 mg Q6H PRN IV NAUSEA OR VOMITING; Start at 06:45; Stop 10/02/16 at 10:42; Status DC Albuterol/ Ipratropium (Duoneb Neb) 1 ampule Q2HR NEB PRN INH WHEEZING; Start 10/02/16 at 06:45; Stop 10/02/16 at 10:40; Status DC Miscellaneous Information 1 Q361D XX ; Start 10/02/16 at 06:45; Stop 10/02/16 at 10:41; Status DC Chlorhexidine Gluconate (Chlorhexidine 2% Cloth) 3 pack Taper DAILY@04 TOP ; Start 10/03/16 at 04:00; Stop 10/03/16 at 04:00; Status DC Chlorhexidine Gluconate 3 pack 3 pack UNSCH PRN TOP HYGIENIC CARE; Start at 06:45; Stop 10/02/16 at 10:41; Status DC Ceftriaxone Sodium/Sodium Chloride (Rocephin Inj/NS Inj) 100 ml @ 200 mls/hr Q24H IV Last administered on 10/02/16 07:43; Start 10/02/16 at 07:00; Stop at 16:52; Status DC Hydromorphone HCl (Dilaudid Pf Inj) 1 mg NOW ONCE IV Last administered on 10/02 10:39; Start 10/02/16 at 10:30; Stop 10/02/16 at 10:31; Status DC Magnesium Oxide 800 mg 800 mg UNSCH PRN PO For Magnesium 1.2 - 1.6 mg/dL; Start 10/02/16 at 10:30; Stop 10/04/16 at 07:50; Status DC Magnesium Sulfate 4 gm/Sodium Chloride 100 ml @ 50 mls/hr UNSCH PRN IV For Magnesium 0.9 - 1.1 mg/dL; Start 10/02/16 at 10:30; Stop 10/04/16 at 07:50; Status DC Magnesium Sulfate 2 gm/Sodium Chloride 100 ml @ 50 mls/hr UNSCH PRN IV For Magnesium 1.2 - 1.6 mg/dL Last administered on 10/02/16 12:42; Start 10/02/16 at 10:30; Stop 10/04/16 at 07:50; Status DC Potassium Chloride 100 ml @ 50 mls/hr Q2H PRN IV For Potassium 2.8 - 3.2 mEq/L ; Start 10/02/16 at 10:30; Stop 10/04/16 at 07:50; Status DC Potassium Chloride 100 ml @ 50 mls/hr Q2H PRN IV For Potassium 3.3 - 3.5 mEq/L ; Start 10/02/16 at 10:30; Stop 10/04/16 at 07:50; Status DC Potassium Chloride 100 ml @ 50 mls/hr Q2H PRN IV For Potassium 2.8 - 3.2 mEq/L ; Start 10/02/16 at 10:30; Stop 10/04/16 at 07:51; Status DC Potassium Chloride (KCl 40 Meq Premix Inj) 100 ml @ 25 mls/hr UNSCH PRN IV For Potassium 3.3 - 3.5 mEq/L; Start 10/02/16 at 10:30; Stop 10/04/16 at 07:51; Status DC Potassium Chloride (KCl 40 Meq/30 ml Liq) 40 meq UNSCH PRN PO/TUBE For Potassium 3.3 - 3.5 mEq/L; Start 10/02/16 at 10:30; Stop 10/04/16 at 07:51; Status DC Potassium Chloride (KCl 40 Meq/30 ml Liq) 40 meq UNSCH PRN PO/TUBE SEE LABEL COMMENTS; Start 10/02/16 at 10:30; Stop 10/04/16 at 07:51; Status DC Potassium Phosphate (K-Phos) 2,000 mg Q4H PRN PO For Phosphorus < 2.5 mg/dL; Start 10/02/16 at 10:30; Stop 10/04/16 at 07:50; Status DC Potassium Phosphate 2000 mg 2,000 mg UNSCH PRN PO/TUBE SEE LABEL COMMENTS; Start 10/02/16 at 10:30; Stop 10/04/16 at 07:51; Status DC Potassium Phosphate 30 mmol/ Sodium Chloride 260 ml @ 42 mls/hr UNSCH PRN IV SEE LABEL COMMENTS; Start 10/02/16 at 10:30; Stop 10/04/16 at 07:51; Status DC Sodium Phosphate/ Sodium Chloride (Sodium Phosphate Inj/NS 250 ml Inj) 250 ml @ 42 mls/hr UNSCH PRN IV For Phosphorus < 2.5 mg/dL; Start 10/02/16 at 10:30; Stop 10/04/16 at 07:51; Status DC Dextrose (D50w (Vial) Inj) 25 ml UNSCH PRN IV PUSH HYPOGLYCEMIA-SEE COMMENTS; Start 10/02/16 at 10:30; Stop 10/03/16 at 19:01; Status DC Insulin Human Regular (NovoLIN R SUPPLEMENTAL SCALE) 1 Q6HR SQ ; Start 10/02/16 at 12:00; Stop 10/03/16 at 19:01; Status DC Albuterol/ Ipratropium (Duoneb Neb) 1 ampule Q6HR NEB INH Last administered on 10/06/16 11:44; Start 10/02/16 at 16:00; Stop 10/06/16 at 16:00; Status DC Albuterol/ Ipratropium 1 ampule 1 ampule Q2HR NEB PRN INH WHEEZING Last administered on 10/06/16 22:06; Start 10/02/16 at 10:30 Sodium Chloride (NS 1000 ml Inj) 1,000 ml @ 120 mls/hr Q8H20M IV Last administered on 10/04/16 10:26; Start 10/02/16 at 10:25; Stop 10/05/16 at 13:01 ; Status DC IV Flush (NS Flush) 2 ml UNSCH PRN IV FLUSH FLUSH AFTER USING IV ACCESS; Start 10/02/16 at 10:30 IV Flush (NS Flush) 2 ml BID IV FLUSH Last administered on 10/07/16 10:12; Start 10/02/16 at 21:00 Hydromorphone HCl (Dilaudid Pf Inj) 1 mg Q4H PRN IV BREAKTHROUGH PAIN Last administered on 10/07/16 15:12; Start 10/02/16 at 10:30 Pantoprazole Sodium (Protonix Inj) 40 mg DAILY IV Last administered on 10:27; Start 10/03/16 at 09:00; Stop 10/03/16 at 10:54; Status DC Ondansetron HCl (Zofran Inj) 4 mg Q6H PRN IV NAUSEA OR VOMITING; Start at 10:30 Miscellaneous Information 1 Q361D XX ; Start 10/02/16 at 10:30 Chlorhexidine Gluconate (Chlorhexidine 2% Cloth) Taper DAILY@04 TOP Last administered on 10/03/16 04:00; Start 10/03/16 at 04:00; Stop 09/29/17 at 03:59 Chlorhexidine Gluconate 3 pack 3 pack UNSCH PRN TOP HYGIENIC CARE; Start at 10:30 Thiamine HCl/ Sodium Chloride (Thiamine Inj/NS Inj) 101 ml @ 101 mls/hr Q24H IV Last administered on 10/04/16 02:12; Start 10/03/16 at 02:00; Stop at 02:59; Status DC Thiamine HCl 100 mg 100 mg DAILY PO Last administered on 10/07/16 10:11; Start 10/06/16 at 09:00 Multivitamins/ Thiamine HCl/ Folic Acid/Sodium Chloride (Mvi-12 Inj/ Thiamine Inj/ Folvite Inj/08/08 NS 500 ml Inj) 511.2 ml @ 125 mls/hr ONCE ONCE IV Last administered on 10/02/16 12:42; Start 10/02/16 at 12:00; Stop 10/02/16 at 16:05 ; Status DC Multivitamins (Theragran) 1 tab DAILY PO Last administered on 10/07/16 10:11; Start 10/03/16 at 09:00 Iodixanol 100 ml 100 ml STK-MED ONCE IV Last administered on 10/02/16 15:12; Start 10/02/16 at 15:12; Stop 10/02/16 at 15:13; Status DC Piperacillin Sod/ Tazobactam Sod (Zosyn 2.25 Gm Premix) 50 ml @ 200 mls/hr Q6H IV Last administered on 10/04/16 10:26; Start 10/02/16 at 17:00; Stop at 13:03; Status DC Nicotine (Habitrol 21 Mg Patch.24 Hr) 1 patch DAILY TD Last administered on 10/07 10:11; Start 10/02/16 at 17:00 Amlodipine Besylate (Norvasc) 10 mg DAILY PO Last administered on 10/05/16 08: 46; Start 10/02/16 at 16:49; Stop 10/05/16 at 13:02; Status DC Carvedilol (Coreg) 6.25 mg Q12HR PO ; Start 10/02/16 at 16:49; Stop 10/02/16 at 16:55; Status DC Labetalol HCl (Trandate Inj) 20 mg Q1H PRN IV PUSH sbp > 160; Start 10/02/16 at 17:00 Hydralazine HCl (Apresoline Inj) 10 mg Q30M PRN IV PUSH sbp > 160 Last administered on 10/06/16 19:44; Start 10/02/16 at 17:00; Stop 10/07/16 at 00:04; Status DC Carvedilol (Coreg) 6.25 mg Q12H PO Last administered on 10/03/16 05:37; Start 10/02/16 at 18:00; Stop 10/03/16 at 06:10; Status DC Carvedilol (Coreg) 12.5 mg Q12H PO Last administered on 10/08/16 04:38; Start 10/03/16 at 18:00 Pantoprazole Sodium (Protonix) 20 mg DAILY PO Last administered on 10/07/16 10: 11; Start 10/04/16 at 09:00 Guaifenesin 200 mg 200 mg Q6H PRN PO COUGH Last administered on 10/03/16 17:50 ; Start 10/03/16 at 17:15 Piperacillin Sod/ Tazobactam Sod (Zosyn 4.5 Gm Premix) 100 ml @ 200 mls/hr Q6H IV Last administered on 10/05/16 10:32; Start 10/04/16 at 16:00; Stop 10/05/16 at 13:06; Status DC Nifedipine (Procardia) 30 mg ONCE ONCE PO Last administered on 10/04/16 16:19 ; Start 10/04/16 at 15:45; Stop 10/04/16 at 15:46; Status DC Alprazolam (Xanax) 0.25 mg Q8H PRN PO ANXIETY Last administered on 10/07/16 04: 34; Start 10/05/16 at 13:00 Nifedipine 60 mg 60 mg DAILY PO Last administered on 10/07/16 10:11; Start 10/05 at 13:00 Sodium Chloride (NS 1000 ml Inj) 1,000 ml @ 70 mls/hr [id number] ONCE IV Last administered on 10/06/16 13:14; Start 10/06/16 at 11:00; Stop 10/07/16 at 01:17; Status DC Nifedipine (Procardia Xl) 30 mg ONCE ONCE PO Last administered on 10/06/16 17: 51; Start 10/06/16 at 18:00; Stop 10/06/16 at 18:01; Status DC Ciprofloxacin (Cipro) 250 mg Q12H PO Last administered on 10/08/16 00:40; Start 10/06/16 at 12:00 Metronidazole (Flagyl) 500 mg Q8HR PO Last administered on 10/08/16 04:38; Start 10/06/16 at 14:00 Clonidine (Catapres) 0.1 mg Q6H PRN PO SBP>160, DBP>90 Last administered on 10/08 00:47; Start 10/07/16 at 00:15 Nifedipine (Procardia Xl) 30 mg ONCE ONCE PO Last administered on 10/07/16 12: 47; Start 10/07/16 at 12:00; Stop 10/07/16 at 12:34; Status DC Acetaminophen/ Hydrocodone Bitart 2 tab 2 tab Q4H PRN PO PAIN 6-10 Last administered on 10/08/16 00:41; Start 10/07/16 at 11:30 Sodium Chloride (NS 1000 ml Inj) 1,000 ml @ 70 mls/hr [id number] ONCE IV Last administered on 10/07/16 12:52; Start 10/07/16 at 11:30; Stop 10/08/16 at 01:47; Status DC Simethicone (Mylicon Chew) 80 mg PCHS PRN CHEW BLOATING Last administered on 16:56; Start 10/07/16 at 14:30 Polyethylene Glycol (Miralax) 17 gm DAILY PO ; Start 10/07/16 at 20:15 A/P Assessment and Plan A/p 1. Severe Abdominal pain- has improved CT of the abdomen with pneumoperitoneum. general surgery evaluation appreciated and recommended conservative treatment. diet has been advanced. continue pain control. will continue po Abx. 2. Hypertensive Urgency- BP overall improved. - continue coreg. -continue procardia XL. -close f/u with pcp and this was d/w the patient. 3. Acute on Chronic Renal failure- with increase in Creatinine- improved on IV hydration. 4. Etoh Abuse -- Thiamine, MVI -- watch for withdraw 5. COPD -- nebs q6h and q2h prn -- I.S. to bedside. 6- AAA/ PVD vascular surgery evaluation appreciated and recommended conservative treatment. dvt prophy: SCDs. gi prophylaxis: protonix. Discharge Planning dc home today. see med list. f/u; pcp,general surgery and vascular surgery. d/w the patient and his in detail. d/w the RN. time spent 32 min. Hollis Carty MD Oct 08, 2016 10:40
[2016-10-08] MEDS ORDERED: PROC90TA PO (10:41)
[2016-10-08] MEDS ORDERED: CIPR-9 PO (10:48)
[2016-10-08] MEDS ORDERED: METR-1 PO (10:48)
[2016-10-08 11:58] VITALS: BP 164/79; PULSE 88; RESP 18; TEMP 96.3; O2SAT 95
[2016-10-19] MEDS ORDERED: CARV25TA PO (15:29)
[2016-11-02] MEDS ORDERED: ATOR40TA16 PO (08:38)
[2016-11-09] MEDS ORDERED: PROC90TA PO ×2 (13:00→14:20)
[2016-12-01] MEDS ORDERED: ATOR40TA16 PO (08:34)
[2016-12-01] MEDS ORDERED: CARV25TA PO (08:34)
[2016-12-01] MEDS ORDERED: LOSA50TA2 PO (08:34)
[2016-12-09] MEDS ORDERED: PROC90TA PO (17:47)
[2016-12-27] MEDS ORDERED: LOSA50TA2 PO (08:38)
[2016-12-27] MEDS ORDERED: CARV25TA PO (08:38)
== END 2016-10-08 16:35 | disposition home or self-care (01) | DRG 392 ==
LOC: PHED 04:19 → PHEDA 06:46 → N03A 09:38 → N06A 10-04 00:13
PROVIDERS: ADMIT Internal Medicine; ATTEND Internal Medicine
DX: R10.9 Unspecified abdominal pain (principal); N17.9 Acute kidney failure, unspecified; K66.8 Other specified disorders of peritoneum; J44.9 Chronic obstructive pulmonary disease, unspecified; Z90.6 Acquired absence of other parts of urinary tract; I16.0 Hypertensive urgency; I71.4 Abdominal aortic aneurysm, without rupture; K57.30 Diverticulosis of large intestine without perforation or abscess without bleeding; I12.9 Hypertensive chronic kidney disease with stage 1 through stage 4 chronic kidney disease, or unspecified chronic kidney disease; N18.9 Chronic kidney disease, unspecified; F10.10 Alcohol abuse, uncomplicated; Z93.2 Ileostomy status; Z85.51 Personal history of malignant neoplasm of bladder; F17.210 Nicotine dependence, cigarettes, uncomplicated; K43.2 Incisional hernia without obstruction or gangrene; Z79.82 Long term (current) use of aspirin
CPT/HCPCS: 71010; 71275; 74000; 74174; 74176; 75635; 76705; 80048; 80053; 81001; 82150; 82550; 82948; 83605; 83690; 83735; 84100; 84484; 85025; 85027; 85610; 85730; 86140; 86850; 86900; 86901; 87040; 87641; 93005; 94150; 94640; 94664; 94667; 94668; 96361; 96374; 96375; 96376; C9113; J0360; J0696; J1170; J2405; J2543; J3411; J3475; J7030; J7050; Q9967